=== PATIENT | female | born 1960 | race Caucasian/White ===

== ENCOUNTER 2022-06-04 16:47 | Inpatient (IN) | payer OTHER, MEDICARE ==
[2022-06-05 13:58] LABS: Alanine Aminotransferase 22 units/L (7-56); BUN/Creatinine Ratio 26; Blood Urea Nitrogen 21 mg/dL (7-17); Chol/HDL Ratio 1.98 %; HDL Cholesterol 73 mg/dL (40-59); Hemolysis Index 4; LDL Cholesterol,Direct 63 mg/dL (50-130)
[2022-06-05] MEDS ORDERED: HALOPERIDOL LACTATE 5 MG/1 ML INJ IM PRN (18:06)
[2022-06-05] MEDS ORDERED: LORazepam 2 MG/ML VIAL IM PRN (18:07)
--- NOTE | 2022-06-05 18:58 | Consultation ---
History of Present Illness - Reason for Consult Consult date: 06/05/22 Medical consult/medical management Requesting physician: GERONIMO IRELAND - History of Present Illness 61-year-old female patient with significant past medical history of CVA in February 2022 Type 2 diabetes mellitus, hypertension and dyslipidemia was admitted to [facility] for further evaluation and management of patient's worsening confusion memory loss aggression towards others and some behavioral issues, patient has history of diabetes and hypertension hospitalist services were consulted for medical management. When I evaluated the patient in the [facility] patient was very upset and reports that she does not know why she was here And wants to go home.. Patient denies any chest pain or shortness of breath, reports that she has history of diabetes and hypertension. Patient denies any nausea vomiting or abdominal pain Denies headache dizziness weakness or numbness No new complaints Past History Past Medical History: hypertension, hyperlipidemia, stroke (With residual CVA) Past Surgical History: No surgical history Social history: denies: smoking, alcohol abuse, prescription drug abuse Family history: no significant family history Medications and Allergies Allergies Allergy/AdvReac Type Severity Reaction Status Date / Time No Known Allergies Allergy Unverified 06/04/22 18:07 Home Medications Medication Instructions Recorded Confirmed Last Taken Type Atorvastatin [Lipitor Tab] 80 mg PO HS 06/04/22 06/04/22 Unknown History Cholecalciferol Vit D3 [Vitamin D3 2,000 1000units PO DAILY 06/04/22 06/04/22 Unknown History 1,000 UNIT TAB] Clopidogrel [Plavix] 75 mg PO QDAY 06/04/22 06/04/22 Unknown History Insulin Glargine [Lantus VIAL] 20 unit SUB-Q QHS 06/04/22 06/04/22 Unknown History Lispro Insulin [HumaLOG] 5 unit SQ HS 06/04/22 06/04/22 Unknown History QUEtiapine [SEROquel] 25 mg PO BID 06/04/22 06/04/22 Unknown History lisinopriL [Lisinopril] 20 mg PO DAILY 06/04/22 06/04/22 Unknown History Active Meds: Active Medications Haloperidol Lactate (Haloperidol Lactate 5 Mg/1 Ml Inj) 5 mg IM Q6H PRN PRN Reason: Agitation Lorazepam (Lorazepam 2 Mg/Ml Vial) 2 mg IM Q6H PRN PRN Reason: Agitation Trazodone HCl (Trazodone 50 Mg Tab) 50 mg PO QHS PORSHA Review of Systems Constitutional: no weight loss, no weight gain, no fever, no chills Ears, nose, mouth and throat: no nasal discharge, no sinus pressure Cardiovascular: no chest pain, no orthopnea, no palpitations Respiratory: no cough, no shortness of breath Gastrointestinal: no abdominal pain, no nausea, no vomiting Genitourinary Female: no flank pain, no dysuria Musculoskeletal: no myalgias, no arthritis Integumentary: no rash, no lesions Neurological: weakness, parathesias, no seizures Psychiatric: depression, no anxiety Endocrine: no cold intolerance, no heat intolerance, no polydipsia, no polyuria Hematologic/Lymphatic: no easy bruising, no easy bleeding Allergic/Immunologic: no urticaria, no allergic rhinitis Exam - Constitutional General appearance: Present: no acute distress, well-nourished, obese - EENT Eyes: Present: PERRL, EOM intact - Neck Neck: Present: supple, normal ROM - Respiratory Respiratory effort: normal Respiratory: bilateral: diminished, negative: rales, rhonchi, wheezing - Cardiovascular Rhythm: regular Heart Sounds: Present: S1 & S2 - Extremities Extremities: no ischemia, No edema - Abdominal General gastrointestinal: Present: soft, non-tender, non-distended, normal bowel sounds - Integumentary Integumentary: Present: clear, warm - Musculoskeletal Musculoskeletal: strength equal bilaterally, generalized weakness - Psychiatric Psychiatric: appropriate mood/affect, cooperative - Neurologic Neurologic: moves all extremities Results - Labs CBC & Chem 7: 06/05/22 13:17 Labs: Abnormal lab results 06/05/22 06/05/22 06/05/22 Range/Units 11:46 13:17 16:28 Sodium 134 L (137-145) mmol/L BUN 21 H (7-17) mg/dL Glucose 357 H (65-100) mg/dL POC Glucose 266 H 367 H (70-105) mg/dL Alkaline Phosphatase 131 H (35-129) units/L HDL Cholesterol 73 H (40-59) mg/dL Assessment and Plan -- Type 2 diabetes mellitus; uncontrolled Accu-Cheks sliding scale coverage ADA diet Long-acting insulin as needed -- Hypertension; moderate control Continue current antihypertensives, as needed medications -- Dyslipidemia; Low-cholesterol diet, continue statin -- History of stroke; Continue Plavix and statins Supportive care -- DVT prophylaxis; SCDs while resting Ambulate as tolerated -- Full CODE STATUS We will closely monitor the patient and adjust management as needed Plan of care reviewed with the patient and her nurse Thank you for this consult We will follow the patient along with you call us with questions
[2022-06-05 20:31] LABS: Basophils % (Auto) 0.6 % (0.0-1.8); Eosinophils # (Auto) 0.4 K/mm3 (0.0-0.4); Eosinophils % (Auto) 4.5 % (0.0-4.3); Lymphocytes # (Auto) 2.4 K/mm3 (1.2-5.4); Lymphocytes % (Auto) 30.5 % (13.4-35.0); Mean Corpuscular HGB Conc 37 % (30-34); Mean Corpuscular Volume 89 fl (79-97); Monocytes # (Auto) 0.7 K/mm3 (0.0-0.8); Monocytes % (Auto) 8.5 % (0.0-7.3); Platelet Count 201 K/mm3 (140-440); Red Blood Count 4.24 M/mm3 (3.65-5.03); Red Cell Distribution Width 13.9 % (13.2-15.2)
[2022-06-05 20:36] LABS: Hematocrit 37.7 % (30.3-42.9); Hemoglobin 13.8 gm/dl (10.1-14.3)
[2022-06-05] MEDS: QUEtiapine 25 MG TAB PO SCH (21:28)
[2022-06-05] MEDS: INSULIN LISPRO 100 UNIT/ML SUB-Q SCH (21:28)
[2022-06-05] MEDS: traZODone 50 MG TAB PO SCH (21:28)
[2022-06-06 05:48] LABS: Blood Urea Nitrogen 19 mg/dL (7-17); Calcium 9.2 mg/dL (8.4-10.2); Hemolysis Index 18
[2022-06-06 06:03] LABS: BUN/Creatinine Ratio 27
[2022-06-06] MEDS: CLOPIDOGREL 75 MG TAB PO SCH (09:43)
[2022-06-06] MEDS: LISINOPRIL 20 MG TAB PO SCH (09:44)
[2022-06-06] MEDS: CHOLECALCIFEROL (VIT D3) 1000 UNIT (25 mcg) TAB PO SCH (09:44)
[2022-06-06] MEDS: QUEtiapine 25 MG TAB PO SCH ×2 (09:44→21:37)
[2022-06-06] MEDS: INSULIN NPH/REGULAR 70/30 INJ SUB-Q SCH ×2 (10:19→16:49)
[2022-06-06] MEDS: INSULIN LISPRO 100 UNIT/ML SUB-Q SCH ×4 (10:19→21:51)
--- NOTE | 2022-06-06 14:53 | History and Physical Report ---
GP History & Physical - History of Present Illness Date of admission: 06/05/22 Date of Examination: 06/06/22 Reason for Admission: Danger to self, Severe anxiety/depression History of Present Illness: HPI 61 year old female was seen in her room today. Patient states that she was brought in by her and she doesn't know why "They brought me". Patient has a past psychiatric dx of depression and has been on Prozac for a while. Patient admits to having suicidal thoughts with no plan " Never worked" when asked what she meant she shrugged her shoulders. Patient states that she is "tired of being pushed around by everybody". Patient denies HI/AVH at this time. PAST PSYCHIATRIC HISTORY: Diagnoses: Depression Suicide attempts or Self-harm behavior: Yes Prior psychiatric hospitalizations: Yes Substance Abuse history: Denies Previous psychiatric medications tried: Yes, Prozac Outpatient treatment: PAST MEDICAL HISTORY: Family Psychiatric History None reported or documented SOCIAL HISTORY Marital Status: Living Arrangements: With spouse Employment Status: Retired Access to guns/weapons: Denies Education: History of Abuse: Denies Legal History: Denies REVIEW OF SYSTEMS Constitutional: Negative for weight loss ENT: Negative for stridor Respiratory: Negative for cough or hemoptysis All other systems reviewed and are negative Diagnoses: Unspecified mood disorder Treatment Plan Patient will be admitted for inpatient psychiatric evaluation, medication adjustment and close monitoring The patient's behavior, mood, sleep and appetite will be closely monitored. Patient will be enrolled in individual and group therapeutic sessions and encouraged to attend. Patient will be provided with a safe and structured environment. Patient's physical health needs will be addressed by the Hospitalist. Hospitalist Consulted Labs including CBC, CMP, Lipid profile and Hemoglobin A1C ordered Social Assessment will be completed and the [employer] Floor Installer will work with patient and family to ensure a suitable and safe disposition Medication adjustment will be made as clinically indicated Usual Wellness Quaker/Preservation: - Start Trazodone 50 mg po QHS PRN The patient agreed on the treatment plan, understood the risk, benefit, alternative treatment, potential consequence of no treatment, and gave informed consent. Legal Status: Involuntary Reaction to Hospitalization: Accepting Medications and Allergies Allergies Allergy/AdvReac Type Severity Reaction Status Date / Time No Known Allergies Allergy Unverified 06/04/22 18:07 Home Medications Medication Instructions Recorded Confirmed Last Taken Type Atorvastatin [Lipitor Tab] 80 mg PO HS 06/04/22 06/04/22 Unknown History Cholecalciferol Vit D3 [Vitamin D3 2,000 1000units PO DAILY 06/04/22 06/04/22 Unknown History 1,000 UNIT TAB] Clopidogrel [Plavix] 75 mg PO QDAY 06/04/22 06/04/22 Unknown History Insulin Glargine [Lantus VIAL] 20 unit SUB-Q QHS 06/04/22 06/04/22 Unknown History Lispro Insulin [HumaLOG] 5 unit SQ 06/04/22 06/04/22 Unknown History QUEtiapine [SEROquel] 25 mg PO BID 06/04/22 06/04/22 Unknown History lisinopriL [Lisinopril] 20 mg PO DAILY 06/04/22 06/04/22 Unknown History Active Meds: Active Medications Cholecalciferol (Cholecalciferol (Vit D3) 1000 Unit (25 Mcg) Tab) 1,000 unit PO DAILY [facility] Last Admin: 06/06/22 09:44 Dose: 1,000 unit Clopidogrel Bisulfate (Clopidogrel 75 Mg Tab) 75 mg PO QDAY [facility] Last Admin: 06/06/22 09:43 Dose: 75 mg Haloperidol Lactate (Haloperidol Lactate 5 Mg/1 Ml Inj) 5 mg IM Q6H PRN PRN Reason: Agitation Insulin Human Isoph/Insulin Regular (Insulin Nph/Regular 70/30 Inj) 10 unit SUB-Q BIDDIAB [facility] Last Admin: 06/06/22 10:19 Dose: 10 unit Insulin Human Lispro (Insulin Lispro 100 Unit/Ml) 0 unit SUB-Q [facility]; Protocol Last Admin: 06/06/22 10:33 Dose: Not Given Lisinopril (Lisinopril 20 Mg Tab) 20 mg PO DAILY [facility] Last Admin: 06/06/22 09:44 Dose: Not Given Lorazepam (Lorazepam 2 Mg/Ml Vial) 2 mg IM Q6H PRN PRN Reason: Agitation Quetiapine Fumarate (Quetiapine 25 Mg Tab) 25 mg PO BID [facility] Last Admin: 06/06/22 09:44 Dose: 25 mg Trazodone HCl (Trazodone 50 Mg Tab) 50 mg PO QHS [facility] Last Admin: 06/05/22 21:28 Dose: 50 mg Results - Results Labs/Vitals: Laboratory Last Values WBC 8.0 K/mm3 (4.5-11.0) 06/05/22 19:50 RBC 4.24 M/mm3 (3.65-5.03) 06/05/22 19:50 Hgb 13.8 gm/dl (10.1-14.3) 06/05/22 19:50 Hct 37.7 % (30.3-42.9) 06/05/22 19:50 MCV 89 fl (79-97) 06/05/22 19:50 MCH 32 pg (28-32) 06/05/22 19:50 MCHC 37 % (30-34) H 06/05/22 19:50 RDW 13.9 % (13.2-15.2) 06/05/22 19:50 Plt Count 201 K/mm3 (140-440) 06/05/22 19:50 Lymph % (Auto) 30.5 % (13.4-35.0) 06/05/22 19:50 [place] % (Auto) 8.5 % (0.0-7.3) H 06/05/22 19:50 Eos % (Auto) 4.5 % (0.0-4.3) H 06/05/22 19:50 Baso % (Auto) 0.6 % (0.0-1.8) 06/05/22 19:50 Lymph # (Auto) 2.4 K/mm3 (1.2-5.4) 06/05/22 19:50 [place] # (Auto) 0.7 K/mm3 (0.0-0.8) 06/05/22 19:50 Eos # (Auto) 0.4 K/mm3 (0.0-0.4) 06/05/22 19:50 Baso # (Auto) 0.0 K/mm3 (0.0-0.1) 06/05/22 19:50 Seg Neutrophils % 55.9 % (40.0-70.0) 06/05/22 19:50 Seg Neutrophils # 4.5 K/mm3 (1.8-7.7) 06/05/22 19:50 Sodium 140 mmol/L (137-145) 06/06/22 04:59 Potassium 4.1 mmol/L (3.6-5.0) 06/06/22 04:59 Chloride 104.8 mmol/L (98-107) 06/06/22 04:59 Carbon Dioxide 24 mmol/L (22-30) 06/06/22 04:59 Anion Gap 15 mmol/L 06/06/22 04:59 BUN 19 mg/dL (7-17) H 06/06/22 04:59 Creatinine 0.7 mg/dL (0.6-1.2) 06/06/22 04:59 Estimated GFR > 60 ml/min 06/06/22 04:59 BUN/Creatinine Ratio 27 % 06/06/22 04:59 Glucose 233 mg/dL (65-100) H 06/06/22 04:59 POC Glucose 231 mg/dL (70-105) H 06/06/22 10:30 Hemoglobin A1c 7.0 % (4-6) H 06/06/22 04:59 Calcium 9.2 mg/dL (8.4-10.2) 06/06/22 04:59 Magnesium 1.60 mg/dL (1.7-2.3) L 06/06/22 04:59 Total Bilirubin 0.30 mg/dL (0.1-1.2) 06/05/22 13:17 AST 22 units/L (5-40) 06/05/22 13:17 ALT 22 units/L (7-56) 06/05/22 13:17 Alkaline Phosphatase 131 units/L (35-129) H 06/05/22 13:17 Total Protein 6.9 g/dL (6.3-8.2) 06/05/22 13:17 Albumin 4.0 g/dL (3.9-5) 06/05/22 13:17 Albumin/Globulin Ratio 1.4 % 06/05/22 13:17 Triglycerides 110 mg/dL (2-149) 06/05/22 13:17 Cholesterol 145 mg/dL (50-199) 06/05/22 13:17 LDL Cholesterol Direct 63 mg/dL (50-130) 06/05/22 13:17 HDL Cholesterol 73 mg/dL (40-59) H 06/05/22 13:17 Cholesterol/HDL Ratio 1.98 % 06/05/22 13:17 TSH 1.290 mlU/mL (0.270-4.200) 06/05/22 13:17 Last Vital Signs Temp 97.7 F 06/05/22 22:00 Pulse 102 H 06/05/22 22:00 Resp 18 06/05/22 22:00 BP 156/95 06/05/22 22:00 Pulse Ox 98 06/05/22 22:00 Physical Examination - Constitutional Vitals: Vital Signs Temp Pulse Resp BP Pulse Ox 97.7 F 102 H 18 156/95 98 06/05/22 22:00 06/05/22 22:00 06/05/22 22:00 06/05/22 22:00 06/05/22 22:00 Temperature -Last 24 Hours Temperature 97.7 F Temperature 97.7 F Mental Status Exam - Vital signs Last Vital Signs Temp 97.7 F 06/05/22 22:00 Pulse 102 H 06/05/22 22:00 Resp 18 06/05/22 22:00 BP 156/95 06/05/22 22:00 Pulse Ox 98 06/05/22 22:00 Physician Certification - Certification Statement Physician Certification Statement: This is an acknowledgement statement that MONTEZ MARES is a 61 year old F who requires inpatient psychiatric admission for treatment which could reasonably be expected to improve the patient's condition for Estimated period of time patient will need to remain in the hospital: [ ] Plan for post-hospital care: [ ]
--- NOTE | 2022-06-06 19:56 | Progress Note ---
Assessment and Plan Assessment and plan: -- Type 2 diabetes mellitus; uncontrolled Accu-Cheks sliding scale coverage ADA diet Long-acting insulin as needed -- Hypertension; moderate control Continue current antihypertensives, as needed medications -- Dyslipidemia; Low-cholesterol diet, continue statin -- History of stroke; Continue Plavix and statins Supportive care -- DVT prophylaxis; SCDs while resting Ambulate as tolerated -- Full CODE STATUS Thank you for this consult We will follow the patient along with you call us with questions We will closely monitor the patient and adjust management as needed Plan of care reviewed with the patient and her nurse History Interval history: I have seen and examined the patient in the day room today Patient's chart and medications reviewed No new events reported by the nursing staff Patient is calm and quiet Minimal communication today Not in acute distress Hospitalist Physical - Constitutional Vitals: Temp Pulse Resp BP Pulse Ox 97.7 F 102 H 18 156/95 98 06/05/22 22:00 06/05/22 22:00 06/05/22 22:00 06/05/22 22:00 06/05/22 22:00 General appearance: Present: no acute distress, well-nourished, obese - EENT Eyes: Present: PERRL, EOM intact - Neck Neck: Present: supple, normal ROM - Respiratory Respiratory effort: normal Respiratory: bilateral: diminished, negative: rales, rhonchi, wheezing - Cardiovascular Rhythm: regular - Extremities Extremities: no ischemia, No edema - Abdominal General gastrointestinal: soft, non-tender, non-distended, normal bowel sounds - Integumentary Integumentary: Present: clear, warm - Psychiatric Psychiatric: appropriate mood/affect, cooperative - Neurologic Neurologic: CNII-XII intact, moves all extremities Results - Labs CBC & Chem 7: 06/05/22 19:50 06/06/22 04:59 Labs: Laboratory Last Values WBC 8.0 K/mm3 (4.5-11.0) 06/05/22 19:50 RBC 4.24 M/mm3 (3.65-5.03) 06/05/22 19:50 Hgb 13.8 gm/dl (10.1-14.3) 06/05/22 19:50 Hct 37.7 % (30.3-42.9) 06/05/22 19:50 MCV 89 fl (79-97) 06/05/22 19:50 MCH 32 pg (28-32) 06/05/22 19:50 MCHC 37 % (30-34) H 06/05/22 19:50 RDW 13.9 % (13.2-15.2) 06/05/22 19:50 Plt Count 201 K/mm3 (140-440) 06/05/22 19:50 Lymph % (Auto) 30.5 % (13.4-35.0) 06/05/22 19:50 [place] % (Auto) 8.5 % (0.0-7.3) H 06/05/22 19:50 Eos % (Auto) 4.5 % (0.0-4.3) H 06/05/22 19:50 Baso % (Auto) 0.6 % (0.0-1.8) 06/05/22 19:50 Lymph # (Auto) 2.4 K/mm3 (1.2-5.4) 06/05/22 19:50 [place] # (Auto) 0.7 K/mm3 (0.0-0.8) 06/05/22 19:50 Eos # (Auto) 0.4 K/mm3 (0.0-0.4) 06/05/22 19:50 Baso # (Auto) 0.0 K/mm3 (0.0-0.1) 06/05/22 19:50 Seg Neutrophils % 55.9 % (40.0-70.0) 06/05/22 19:50 Seg Neutrophils # 4.5 K/mm3 (1.8-7.7) 06/05/22 19:50 Sodium 140 mmol/L (137-145) 06/06/22 04:59 Potassium 4.1 mmol/L (3.6-5.0) 06/06/22 04:59 Chloride 104.8 mmol/L (98-107) 06/06/22 04:59 Carbon Dioxide 24 mmol/L (22-30) 06/06/22 04:59 Anion Gap 15 mmol/L 06/06/22 04:59 BUN 19 mg/dL (7-17) H 06/06/22 04:59 Creatinine 0.7 mg/dL (0.6-1.2) 06/06/22 04:59 Estimated GFR > 60 ml/min 06/06/22 04:59 BUN/Creatinine Ratio 27 % 06/06/22 04:59 Glucose 233 mg/dL (65-100) H 06/06/22 04:59 POC Glucose 214 mg/dL (70-105) H 06/06/22 19:42 Hemoglobin A1c 7.0 % (4-6) H 06/06/22 04:59 Calcium 9.2 mg/dL (8.4-10.2) 06/06/22 04:59 Magnesium 1.60 mg/dL (1.7-2.3) L 06/06/22 04:59 Total Bilirubin 0.30 mg/dL (0.1-1.2) 06/05/22 13:17 AST 22 units/L (5-40) 06/05/22 13:17 ALT 22 units/L (7-56) 06/05/22 13:17 Alkaline Phosphatase 131 units/L (35-129) H 06/05/22 13:17 Total Protein 6.9 g/dL (6.3-8.2) 06/05/22 13:17 Albumin 4.0 g/dL (3.9-5) 06/05/22 13:17 Albumin/Globulin Ratio 1.4 % 06/05/22 13:17 Triglycerides 110 mg/dL (2-149) 06/05/22 13:17 Cholesterol 145 mg/dL (50-199) 06/05/22 13:17 LDL Cholesterol Direct 63 mg/dL (50-130) 06/05/22 13:17 HDL Cholesterol 73 mg/dL (40-59) H 06/05/22 13:17 Cholesterol/HDL Ratio 1.98 % 06/05/22 13:17 TSH 1.290 mlU/mL (0.270-4.200) 06/05/22 13:17 Lara/IV: Voiding Method Toilet Active Medications - Current Medications Current Medications: Generic Name Dose Route Start Last Admin Trade Name Freq PRN Reason Stop Dose Admin Cholecalciferol 1,000 unit 06/06/22 10:00 06/06/22 09:44 Cholecalciferol (Vit D3) 1000 Unit (25 Mcg) Tab PO 1,000 unit DAILY PORSHA Administration Clopidogrel Bisulfate 75 mg 06/06/22 10:00 06/06/22 09:43 Clopidogrel 75 Mg Tab PO 75 mg QDAY PORSHA Administration Haloperidol Lactate 5 mg 06/05/22 18:06 Haloperidol Lactate 5 Mg/1 Ml Inj IM Q6H PRN Agitation Insulin Human Isoph/Insulin Regular 10 unit 06/06/22 08:00 06/06/22 16:49 Insulin Nph/Regular 70/30 Inj SUB-Q 10 unit BIDDIAB PORSHA Administration Insulin Human Lispro 0 unit 06/05/22 22:00 06/06/22 16:50 Insulin Lispro 100 Unit/Ml SUB-Q 3 unit ACHS PORSHA Administration Protocol Lisinopril 20 mg 06/06/22 10:00 06/06/22 09:44 Lisinopril 20 Mg Tab PO Not Given DAILY PORSHA Lorazepam 2 mg 06/05/22 18:07 Lorazepam 2 Mg/Ml Vial IM Q6H PRN Agitation Quetiapine Fumarate 25 mg 06/05/22 22:00 06/06/22 09:44 Quetiapine 25 Mg Tab PO 25 mg BID PORSHA Administration Trazodone HCl 50 mg 06/05/22 22:00 06/05/22 21:28 Trazodone 50 Mg Tab PO 50 mg QHS PORSHA Administration
[2022-06-06] MEDS ORDERED: INSULIN NPH/REGULAR 70/30 INJ SUB-Q SCH (20:05)
[2022-06-06] MEDS: traZODone 50 MG TAB PO SCH (21:37)
[2022-06-07] MEDS: INSULIN LISPRO 100 UNIT/ML SUB-Q SCH ×4 (07:30→22:58)
[2022-06-07] MEDS: CHOLECALCIFEROL (VIT D3) 1000 UNIT (25 mcg) TAB PO SCH (09:24)
[2022-06-07] MEDS: MAGNESIUM OXIDE 400 MG TAB PO SCH (09:24)
[2022-06-07] MEDS: CLOPIDOGREL 75 MG TAB PO SCH (09:24)
--- NOTE | 2022-06-07 09:26 | Progress Note ---
Subjective Date of service: 06/07/22 Principal diagnosis: Unspecified Mood Disorder Subjective Comment: The patient was seen today. She is forgetful, and appears delusional at times. She doesn't remember why she was admitted into the hospital. She says she is upset. She is asking about going home. The patient denies SI, but states "I'm homicidal against the person who put me here. I want to get a stick and whoop the sh*t out of them." She says "I woke up and I was here." She denies hallucina tions. The patient later asked me "do I know you? Are you waiting to see me" while I was going to see another patient. REVIEW OF SYSTEMS Constitutional: Negative for weight loss ENT: Negative for stridor Respiratory: Negative for cough or hemoptysis All other systems reviewed and are negative MENTAL STATUS EXAMINATION General Appearance and Behavior: Age appropriate, wearing appropriate clothes, cooperative, polite with questioning, good eye contact Cooperation: cooperative Psychomotor Behavior: Psychomotor normal Mood: upset Affect and affective range: congruent with stated affect Thought Process: Goal directed Thought Content: None Speech: Normal volume, Regular rate and rhythm Suicidal Ideation: Denies Homicidal Ideation: yes Hallucination: Denies Delusions: None elicited Impulse Control: Limited Insight and Judgment: Limited Memory: forgetful Attention: attentive Orientation: Alert and oriented Assessment Unspecified mood disorder Treatment Plan Patient will be admitted for inpatient psychiatric evaluation, medication adjustment and close monitoring The patient's behavior, mood, sleep and appetite will be closely monitored. Patient will be enrolled in individual and group therapeutic sessions and encouraged to attend. Patient will be provided with a safe and structured environment. Patient's physical health needs will be addressed by the Hospitalist. Hospitalist Consulted Labs including CBC, CMP, Lipid profile and Hemoglobin A1C ordered Social Assessment will be completed and the Crisis Nurse will work with patient and family to ensure a suitable and safe disposition Medication adjustment will be made as clinically indicated Depakote DR 125mg po BID Usual Wellness Catholic/Preservation: - Start Trazodone 50 mg po QHS PRN The patient agreed on the treatment plan, understood the risk, benefit, alternative treatment, potential consequence of no treatment, and gave informed consent. Medications and Allergies Allergies Allergy/AdvReac Type Severity Reaction Status Date / Time No Known Allergies Allergy Unverified 06/04/22 18:07 Home Medications Medication Instructions Recorded Confirmed Last Taken Type Atorvastatin [Lipitor Tab] 80 mg PO HS 06/04/22 06/04/22 Unknown History Cholecalciferol Vit D3 [Vitamin D3 2,000 1000units PO DAILY 06/04/22 06/04/22 Unknown History 1,000 UNIT TAB] Clopidogrel [Plavix] 75 mg PO QDAY 06/04/22 06/04/22 Unknown History Insulin Glargine [Lantus VIAL] 20 unit SUB-Q QHS 06/04/22 06/04/22 Unknown History Lispro Insulin [HumaLOG] 5 unit SQ 06/04/22 06/04/22 Unknown History QUEtiapine [SEROquel] 25 mg PO BID 06/04/22 06/04/22 Unknown History lisinopriL [Lisinopril] 20 mg PO DAILY 06/04/22 06/04/22 Unknown History Active Meds: Active Medications Cholecalciferol (Cholecalciferol (Vit D3) 1000 Unit (25 Mcg) Tab) 1,000 unit PO DAILY [facility] Last Admin: 06/06/22 09:44 Dose: 1,000 unit Clopidogrel Bisulfate (Clopidogrel 75 Mg Tab) 75 mg PO QDAY [facility] Last Admin: 06/06/22 09:43 Dose: 75 mg Haloperidol Lactate (Haloperidol Lactate 5 Mg/1 Ml Inj) 5 mg IM Q6H PRN PRN Reason: Agitation Insulin Human Isoph/Insulin Regular (Insulin Nph/Regular 70/30 Inj) 12 unit SUB-Q BIDDIAB [facility] Insulin Human Lispro (Insulin Lispro 100 Unit/Ml) 0 unit SUB-Q [facility]; Protocol Last Admin: 06/06/22 21:51 Dose: 3 unit Lisinopril (Lisinopril 20 Mg Tab) 20 mg PO DAILY [facility] Last Admin: 06/06/22 09:44 Dose: Not Given Lorazepam (Lorazepam 2 Mg/Ml Vial) 2 mg IM Q6H PRN PRN Reason: Agitation Magnesium Oxide (Magnesium Oxide 400 Mg Tab) 400 mg PO QDAY [facility] Quetiapine Fumarate (Quetiapine 25 Mg Tab) 25 mg PO BID [facility] Last Admin: 06/06/22 21:37 Dose: 25 mg Trazodone HCl (Trazodone 50 Mg Tab) 50 mg PO QHS [facility] Last Admin: 06/06/22 21:37 Dose: 50 mg Results - Results Labs/Vitals: Laboratory Last Values WBC 8.0 K/mm3 (4.5-11.0) 06/05/22 19:50 RBC 4.24 M/mm3 (3.65-5.03) 06/05/22 19:50 Hgb 13.8 gm/dl (10.1-14.3) 06/05/22 19:50 Hct 37.7 % (30.3-42.9) 06/05/22 19:50 MCV 89 fl (79-97) 06/05/22 19:50 MCH 32 pg (28-32) 06/05/22 19:50 MCHC 37 % (30-34) H 06/05/22 19:50 RDW 13.9 % (13.2-15.2) 06/05/22 19:50 Plt Count 201 K/mm3 (140-440) 06/05/22 19:50 Lymph % (Auto) 30.5 % (13.4-35.0) 06/05/22 19:50 [place] % (Auto) 8.5 % (0.0-7.3) H 06/05/22 19:50 Eos % (Auto) 4.5 % (0.0-4.3) H 06/05/22 19:50 Baso % (Auto) 0.6 % (0.0-1.8) 06/05/22 19:50 Lymph # (Auto) 2.4 K/mm3 (1.2-5.4) 06/05/22 19:50 [place] # (Auto) 0.7 K/mm3 (0.0-0.8) 06/05/22 19:50 Eos # (Auto) 0.4 K/mm3 (0.0-0.4) 06/05/22 19:50 Baso # (Auto) 0.0 K/mm3 (0.0-0.1) 06/05/22 19:50 Seg Neutrophils % 55.9 % (40.0-70.0) 06/05/22 19:50 Seg Neutrophils # 4.5 K/mm3 (1.8-7.7) 06/05/22 19:50 Sodium 140 mmol/L (137-145) 06/06/22 04:59 Potassium 4.1 mmol/L (3.6-5.0) 06/06/22 04:59 Chloride 104.8 mmol/L (98-107) 06/06/22 04:59 Carbon Dioxide 24 mmol/L (22-30) 06/06/22 04:59 Anion Gap 15 mmol/L 06/06/22 04:59 BUN 19 mg/dL (7-17) H 06/06/22 04:59 Creatinine 0.7 mg/dL (0.6-1.2) 06/06/22 04:59 Estimated GFR > 60 ml/min 06/06/22 04:59 BUN/Creatinine Ratio 27 % 06/06/22 04:59 Glucose 233 mg/dL (65-100) H 06/06/22 04:59 POC Glucose 235 mg/dL (70-105) H 06/07/22 06:49 Hemoglobin A1c 7.0 % (4-6) H 06/06/22 04:59 Calcium 9.2 mg/dL (8.4-10.2) 06/06/22 04:59 Magnesium 1.60 mg/dL (1.7-2.3) L 06/06/22 04:59 Total Bilirubin 0.30 mg/dL (0.1-1.2) 06/05/22 13:17 AST 22 units/L (5-40) 06/05/22 13:17 ALT 22 units/L (7-56) 06/05/22 13:17 Alkaline Phosphatase 131 units/L (35-129) H 06/05/22 13:17 Total Protein 6.9 g/dL (6.3-8.2) 06/05/22 13:17 Albumin 4.0 g/dL (3.9-5) 06/05/22 13:17 Albumin/Globulin Ratio 1.4 % 06/05/22 13:17 Triglycerides 110 mg/dL (2-149) 06/05/22 13:17 Cholesterol 145 mg/dL (50-199) 06/05/22 13:17 LDL Cholesterol Direct 63 mg/dL (50-130) 06/05/22 13:17 HDL Cholesterol 73 mg/dL (40-59) H 06/05/22 13:17 Cholesterol/HDL Ratio 1.98 % 06/05/22 13:17 TSH 1.290 mlU/mL (0.270-4.200) 06/05/22 13:17 Last Vital Signs Temp 97.2 F L 06/07/22 01:46 Pulse 88 06/07/22 01:46 Resp 16 06/07/22 01:46 BP 132/84 06/07/22 01:46 Pulse Ox 96 06/07/22 01:46
[2022-06-07] MEDS: QUEtiapine 25 MG TAB PO SCH ×2 (11:06→21:52)
[2022-06-07] MEDS: LISINOPRIL 20 MG TAB PO SCH (11:06)
[2022-06-07] MEDS: DIVALPROEX DR 125 MG TAB PO SCH ×2 (12:57→21:34)
--- NOTE | 2022-06-07 15:31 | Progress Note ---
Assessment and Plan Assessment and plan: -- Type 2 diabetes mellitus; uncontrolled Accu-Cheks sliding scale coverage ADA diet Long-acting insulin as needed -- Hypertension; moderate control Continue current antihypertensives, as needed medications -- Dyslipidemia; Low-cholesterol diet, continue statin -- History of stroke; Continue Plavix and statins Supportive care -- DVT prophylaxis; SCDs while resting Ambulate as tolerated -- Full CODE STATUS We will continue to closely monitor the patient and adjust management as needed, call us with questions Plan of care reviewed with the patient and her nurse History Interval history: I have seen the patient and examined in her room this morning Patient is very anxious to go home Does not like to be here no new events reported by the nursing staff Vital signs noted Hospitalist Physical - Constitutional Vitals: Temp Pulse Resp BP Pulse Ox 97.2 F L 90 16 115/83 96 06/07/22 01:46 06/07/22 11:06 06/07/22 01:46 06/07/22 11:06 06/07/22 01:46 General appearance: Present: no acute distress, well-nourished, obese - EENT Eyes: Present: PERRL, EOM intact - Neck Neck: Present: supple, normal ROM - Respiratory Respiratory effort: normal Respiratory: bilateral: diminished, negative: rales, rhonchi, wheezing - Cardiovascular Rhythm: regular Heart Sounds: Present: S1 & S2 - Extremities Extremities: no ischemia, No edema - Abdominal General gastrointestinal: soft, non-tender, non-distended, normal bowel sounds - Integumentary Integumentary: Present: clear, warm - Psychiatric Psychiatric: appropriate mood/affect, cooperative - Neurologic Neurologic: CNII-XII intact, moves all extremities Results - Labs CBC & Chem 7: 06/05/22 19:50 06/06/22 04:59 Labs: Laboratory Last Values WBC 8.0 K/mm3 (4.5-11.0) 06/05/22 19:50 RBC 4.24 M/mm3 (3.65-5.03) 06/05/22 19:50 Hgb 13.8 gm/dl (10.1-14.3) 06/05/22 19:50 Hct 37.7 % (30.3-42.9) 06/05/22 19:50 MCV 89 fl (79-97) 06/05/22 19:50 MCH 32 pg (28-32) 06/05/22 19:50 MCHC 37 % (30-34) H 06/05/22 19:50 RDW 13.9 % (13.2-15.2) 06/05/22 19:50 Plt Count 201 K/mm3 (140-440) 06/05/22 19:50 Lymph % (Auto) 30.5 % (13.4-35.0) 06/05/22 19:50 [place] % (Auto) 8.5 % (0.0-7.3) H 06/05/22 19:50 Eos % (Auto) 4.5 % (0.0-4.3) H 06/05/22 19:50 Baso % (Auto) 0.6 % (0.0-1.8) 06/05/22 19:50 Lymph # (Auto) 2.4 K/mm3 (1.2-5.4) 06/05/22 19:50 [place] # (Auto) 0.7 K/mm3 (0.0-0.8) 06/05/22 19:50 Eos # (Auto) 0.4 K/mm3 (0.0-0.4) 06/05/22 19:50 Baso # (Auto) 0.0 K/mm3 (0.0-0.1) 06/05/22 19:50 Seg Neutrophils % 55.9 % (40.0-70.0) 06/05/22 19:50 Seg Neutrophils # 4.5 K/mm3 (1.8-7.7) 06/05/22 19:50 Sodium 140 mmol/L (137-145) 06/06/22 04:59 Potassium 4.1 mmol/L (3.6-5.0) 06/06/22 04:59 Chloride 104.8 mmol/L (98-107) 06/06/22 04:59 Carbon Dioxide 24 mmol/L (22-30) 06/06/22 04:59 Anion Gap 15 mmol/L 06/06/22 04:59 BUN 19 mg/dL (7-17) H 06/06/22 04:59 Creatinine 0.7 mg/dL (0.6-1.2) 06/06/22 04:59 Estimated GFR > 60 ml/min 06/06/22 04:59 BUN/Creatinine Ratio 27 % 06/06/22 04:59 Glucose 233 mg/dL (65-100) H 06/06/22 04:59 POC Glucose 297 mg/dL (70-105) H 06/07/22 11:08 Hemoglobin A1c 7.0 % (4-6) H 06/06/22 04:59 Calcium 9.2 mg/dL (8.4-10.2) 06/06/22 04:59 Magnesium 1.60 mg/dL (1.7-2.3) L 06/06/22 04:59 Total Bilirubin 0.30 mg/dL (0.1-1.2) 06/05/22 13:17 AST 22 units/L (5-40) 06/05/22 13:17 ALT 22 units/L (7-56) 06/05/22 13:17 Alkaline Phosphatase 131 units/L (35-129) H 06/05/22 13:17 Total Protein 6.9 g/dL (6.3-8.2) 06/05/22 13:17 Albumin 4.0 g/dL (3.9-5) 06/05/22 13:17 Albumin/Globulin Ratio 1.4 % 06/05/22 13:17 Triglycerides 110 mg/dL (2-149) 06/05/22 13:17 Cholesterol 145 mg/dL (50-199) 06/05/22 13:17 LDL Cholesterol Direct 63 mg/dL (50-130) 06/05/22 13:17 HDL Cholesterol 73 mg/dL (40-59) H 06/05/22 13:17 Cholesterol/HDL Ratio 1.98 % 06/05/22 13:17 TSH 1.290 mlU/mL (0.270-4.200) 06/05/22 13:17 Lara/IV: Voiding Method Toilet Active Medications - Current Medications Current Medications: Generic Name Dose Route Start Last Admin Trade Name Freq PRN Reason Stop Dose Admin Cholecalciferol 1,000 unit 06/06/22 10:00 06/07/22 09:24 Cholecalciferol (Vit D3) 1000 Unit (25 Mcg) Tab PO 1,000 unit DAILY PORSHA Administration Clopidogrel Bisulfate 75 mg 06/06/22 10:00 06/07/22 09:24 Clopidogrel 75 Mg Tab PO 75 mg QDAY PORSHA Administration Divalproex Sodium 125 mg 06/07/22 11:00 06/07/22 12:[address] 125 Mg Tab PO 125 mg BID PROSHA Administration Haloperidol Lactate 5 mg 06/05/22 18:06 Haloperidol Lactate 5 Mg/1 Ml Inj IM Q6H PRN Agitation Insulin Human Isoph/Insulin Regular 12 unit 06/06/22 20:05 06/07/22 12:53 Insulin Nph/Regular 70/30 Inj SUB-Q 12 unit BIDDIAB PORSHA Administration Insulin Human Lispro 0 unit 06/05/22 22:00 06/07/22 11:30 Insulin Lispro 100 Unit/Ml SUB-Q Not Given [facility] Protocol Lisinopril 20 mg 06/06/22 10:00 06/07/22 11:06 Lisinopril 20 Mg Tab PO 20 mg DAILY PORSHA Administration Lorazepam 2 mg 06/05/22 18:07 Lorazepam 2 Mg/Ml Vial IM Q6H PRN Agitation Magnesium Oxide 400 mg 06/07/22 10:00 06/07/22 09:24 Magnesium Oxide 400 Mg Tab PO 400 mg QDAY PORSHA Administration Quetiapine Fumarate 25 mg 06/05/22 22:00 06/07/22 11:06 Quetiapine 25 Mg Tab PO 25 mg BID POR[facility] Administration Trazodone HCl 50 mg 06/05/22 22:00 06/06/22 21:37 Trazodone 50 Mg Tab PO 50 mg QHS PORSHA Administration
[2022-06-07] MEDS: traZODone 50 MG TAB PO SCH (21:34)
[2022-06-07] MEDS: INSULIN NPH/REGULAR 70/30 INJ SUB-Q SCH (22:29)
--- NOTE | 2022-06-08 08:13 | Progress Note ---
Subjective Date of service: 06/08/22 Principal diagnosis: Unspecified Mood Disorder Subjective Comment: The patient was seen today. She is in bed sleeping. She easily arouses. She says she's "tired, but good." The patient denies any SI/HI or hallucinations of any kind. 06/08 The patient was seen today. She is forgetful, and appears delusional at times. She doesn't remember why she was admitted into the hospital. She says she is upset. She is asking about going home. The patient denies SI, but states "I'm homicidal against the person who put me here. I want to get a stick and whoop the sh*t out of them." She says "I woke up and I was here." She denies hallucinations. The patient later asked me "do I know you? Are you waiting to see me" while I was going to see another patient. REVIEW OF SYSTEMS Constitutional: Negative for weight loss ENT: Negative for stridor Respiratory: Negative for cough or hemoptysis All other systems reviewed and are negative MENTAL STATUS EXAMINATION General Appearance and Behavior: Age appropriate, wearing appropriate clothes, cooperative, polite with questioning, good eye contact Cooperation: cooperative Psychomotor Behavior: Psychomotor normal Mood: Good Affect and affective range: congruent with stated affect Thought Process: Goal directed Thought Content: None Speech: Normal volume, Regular rate and rhythm Suicidal Ideation: Denies Homicidal Ideation: Denies Hallucination: Denies Delusions: None elicited Impulse Control: Limited Insight and Judgment: Limited Memory: forgetful Attention: attentive Orientation: Alert and oriented Assessment Unspecified mood disorder Treatment Plan Patient will be admitted for inpatient psychiatric evaluation, medication adjustment and close monitoring The patient's behavior, mood, sleep and appetite will be closely monitored. Patient will be enrolled in individual and group therapeutic sessions and encouraged to attend. Patient will be provided with a safe and structured environment. Patient's physical health needs will be addressed by the Hospitalist. Hospitalist Consulted Labs including CBC, CMP, Lipid profile and Hemoglobin A1C ordered Social Assessment will be completed and the [employer] Machine Operator will work with patient and family to ensure a suitable and safe disposition Medication adjustment will be made as clinically indicated started Depakote DR 125mg po BID yesterday No changes made today Usual Wellness Hindu/Preservation: - Start Trazodone 50 mg po QHS PRN The patient agreed on the treatment plan, understood the risk, benefit, alternative treatment, potential consequence of no treatment, and gave informed consent. Case staffed with Dr. Mendez Medications and Allergies Allergies Allergy/AdvReac Type Severity Reaction Status Date / Time No Known Allergies Allergy Unverified 06/04/22 18:07 Home Medications Medication Instructions Recorded Confirmed Last Taken Type Atorvastatin [Lipitor Tab] 80 mg PO HS 06/04/22 06/04/22 Unknown History Cholecalciferol Vit D3 [Vitamin D3 2,000 1000units PO DAILY 06/04/22 06/04/22 Unknown History 1,000 UNIT TAB] Clopidogrel [Plavix] 75 mg PO QDAY 06/04/22 06/04/22 Unknown History Insulin Glargine [Lantus VIAL] 20 unit SUB-Q QHS 06/04/22 06/04/22 Unknown History Lispro Insulin [HumaLOG] 5 unit SQ 06/04/22 06/04/22 Unknown History QUEtiapine [SEROquel] 25 mg PO BID 06/04/22 06/04/22 Unknown History lisinopriL [Lisinopril] 20 mg PO DAILY 06/04/22 06/04/22 Unknown History Active Meds: Active Medications Cholecalciferol (Cholecalciferol (Vit D3) 1000 Unit (25 Mcg) Tab) 1,000 unit PO DAILY [facility] Last Admin: 06/07/22 09:24 Dose: 1,000 unit Clopidogrel Bisulfate (Clopidogrel 75 Mg Tab) 75 mg PO QDAY [facility] Last Admin: 06/07/22 09:24 Dose: 75 mg Divalproex Sodium (Divalproex Dr 125 Mg Tab) 125 mg PO BID [facility] Last Admin: 06/07/22 21:34 Dose: 125 mg Haloperidol Lactate (Haloperidol Lactate 5 Mg/1 Ml Inj) 5 mg IM Q6H PRN PRN Reason: Agitation Insulin Human Isoph/Insulin Regular (Insulin Nph/Regular 70/30 Inj) 15 unit SUB-Q BIDDIAB [facility] Last Admin: 06/07/22 22:29 Dose: 15 unit Insulin Human Lispro (Insulin Lispro 100 Unit/Ml) 0 unit SUB-Q ACH[facility]; Protocol Last Admin: 06/07/22 22:58 Dose: 6 unit Lisinopril (Lisinopril 20 Mg Tab) 20 mg PO DAILY [facility] Last Admin: 06/07/22 11:06 Dose: 20 mg Lorazepam (Lorazepam 2 Mg/Ml Vial) 2 mg IM Q6H PRN PRN Reason: Agitation Magnesium Oxide (Magnesium Oxide 400 Mg Tab) 400 mg PO QDAY [facility] Last Admin: 06/07/22 09:24 Dose: 400 mg Quetiapine Fumarate (Quetiapine 25 Mg Tab) 25 mg PO BID [facility] Last Admin: 06/07/22 21:52 Dose: 25 mg Trazodone HCl (Trazodone 50 Mg Tab) 50 mg PO QHS [facility] Last Admin: 06/07/22 21:34 Dose: 50 mg Results - Results Labs/Vitals: Laboratory Last Values WBC 8.0 K/mm3 (4.5-11.0) 06/05/22 19:50 RBC 4.24 M/mm3 (3.65-5.03) 06/05/22 19:50 Hgb 13.8 gm/dl (10.1-14.3) 06/05/22 19:50 Hct 37.7 % (30.3-42.9) 06/05/22 19:50 MCV 89 fl (79-97) 06/05/22 19:50 MCH 32 pg (28-32) 06/05/22 19:50 MCHC 37 % (30-34) H 06/05/22 19:50 RDW 13.9 % (13.2-15.2) 06/05/22 19:50 Plt Count 201 K/mm3 (140-440) 06/05/22 19:50 Lymph % (Auto) 30.5 % (13.4-35.0) 06/05/22 19:50 [place] % (Auto) 8.5 % (0.0-7.3) H 06/05/22 19:50 Eos % (Auto) 4.5 % (0.0-4.3) H 06/05/22 19:50 Baso % (Auto) 0.6 % (0.0-1.8) 06/05/22 19:50 Lymph # (Auto) 2.4 K/mm3 (1.2-5.4) 06/05/22 19:50 [place] # (Auto) 0.7 K/mm3 (0.0-0.8) 06/05/22 19:50 Eos # (Auto) 0.4 K/mm3 (0.0-0.4) 06/05/22 19:50 Baso # (Auto) 0.0 K/mm3 (0.0-0.1) 06/05/22 19:50 Seg Neutrophils % 55.9 % (40.0-70.0) 06/05/22 19:50 Seg Neutrophils # 4.5 K/mm3 (1.8-7.7) 06/05/22 19:50 Sodium 140 mmol/L (137-145) 06/06/22 04:59 Potassium 4.1 mmol/L (3.6-5.0) 06/06/22 04:59 Chloride 104.8 mmol/L (98-107) 06/06/22 04:59 Carbon Dioxide 24 mmol/L (22-30) 06/06/22 04:59 Anion Gap 15 mmol/L 06/06/22 04:59 BUN 19 mg/dL (7-17) H 06/06/22 04:59 Creatinine 0.7 mg/dL (0.6-1.2) 06/06/22 04:59 Estimated GFR > 60 ml/min 06/06/22 04:59 BUN/Creatinine Ratio 27 % 06/06/22 04:59 Glucose 233 mg/dL (65-100) H 06/06/22 04:59 POC Glucose 312 mg/dL (70-105) H 06/07/22 22:41 Hemoglobin A1c 7.0 % (4-6) H 06/06/22 04:59 Calcium 9.2 mg/dL (8.4-10.2) 06/06/22 04:59 Magnesium 1.60 mg/dL (1.7-2.3) L 06/06/22 04:59 Total Bilirubin 0.30 mg/dL (0.1-1.2) 06/05/22 13:17 AST 22 units/L (5-40) 06/05/22 13:17 ALT 22 units/L (7-56) 06/05/22 13:17 Alkaline Phosphatase 131 units/L (35-129) H 06/05/22 13:17 Total Protein 6.9 g/dL (6.3-8.2) 06/05/22 13:17 Albumin 4.0 g/dL (3.9-5) 06/05/22 13:17 Albumin/Globulin Ratio 1.4 % 06/05/22 13:17 Triglycerides 110 mg/dL (2-149) 06/05/22 13:17 Cholesterol 145 mg/dL (50-199) 06/05/22 13:17 LDL Cholesterol Direct 63 mg/dL (50-130) 06/05/22 13:17 HDL Cholesterol 73 mg/dL (40-59) H 06/05/22 13:17 Cholesterol/HDL Ratio 1.98 % 06/05/22 13:17 TSH 1.290 mlU/mL (0.270-4.200) 06/05/22 13:17 Last Vital Signs Temp 97.9 F 06/07/22 20:00 Pulse 91 H 06/07/22 20:00 Resp 16 06/07/22 20:00 BP 118/73 06/07/22 20:00 Pulse Ox 96 06/07/22 20:00
[2022-06-08] MEDS: INSULIN LISPRO 100 UNIT/ML SUB-Q SCH ×4 (08:52→21:30)
[2022-06-08] MEDS: DIVALPROEX DR 125 MG TAB PO SCH ×2 (09:11→21:04)
[2022-06-08] MEDS: QUEtiapine 25 MG TAB PO SCH ×2 (09:11→21:04)
[2022-06-08] MEDS: CHOLECALCIFEROL (VIT D3) 1000 UNIT (25 mcg) TAB PO SCH (09:11)
[2022-06-08] MEDS: CLOPIDOGREL 75 MG TAB PO SCH (09:11)
[2022-06-08] MEDS: INSULIN NPH/REGULAR 70/30 INJ SUB-Q SCH ×2 (09:11→16:34)
[2022-06-08] MEDS: MAGNESIUM OXIDE 400 MG TAB PO SCH (09:11)
[2022-06-08] MEDS: LISINOPRIL 20 MG TAB PO SCH (09:12)
--- NOTE | 2022-06-08 14:25 | Progress Note ---
Assessment and Plan Assessment and plan: -- Type 2 diabetes mellitus; uncontrolled Accu-Cheks sliding scale coverage ADA diet Long-acting insulin as needed -- Hypertension; moderate control Continue current antihypertensives, as needed medications -- Dyslipidemia; Low-cholesterol diet, continue statin -- History of stroke; Continue Plavix and statins Supportive care -- DVT prophylaxis; SCDs while resting Ambulate as tolerated -- Full CODE STATUS We will continue to closely monitor the patient and adjust management as needed, call us with questions Plan of care reviewed with the patient and her nurse Continue current management Call us with questions History Interval history: I have seen the patient in her room, sleeping No new events reported by the nursing staff Patient is comfortable Vital signs reviewed Hospitalist Physical - Physical exam Narrative exam: Did not do physical examination as patient was sleeping[did not need to wake her up] - Constitutional Vitals: Temp Pulse Resp BP Pulse Ox 97.9 F 94 H 18 116/64 97 06/08/22 09:25 06/08/22 09:25 06/08/22 09:25 06/08/22 09:25 06/08/22 09:25 General appearance: Present: no acute distress, well-nourished, obese Results - Labs CBC & Chem 7: 06/05/22 19:50 06/06/22 04:59 Labs: Laboratory Last Values WBC 8.0 K/mm3 (4.5-11.0) 06/05/22 19:50 RBC 4.24 M/mm3 (3.65-5.03) 06/05/22 19:50 Hgb 13.8 gm/dl (10.1-14.3) 06/05/22 19:50 Hct 37.7 % (30.3-42.9) 06/05/22 19:50 MCV 89 fl (79-97) 06/05/22 19:50 MCH 32 pg (28-32) 06/05/22 19:50 MCHC 37 % (30-34) H 06/05/22 19:50 RDW 13.9 % (13.2-15.2) 06/05/22 19:50 Plt Count 201 K/mm3 (140-440) 06/05/22 19:50 Lymph % (Auto) 30.5 % (13.4-35.0) 06/05/22 19:50 [place] % (Auto) 8.5 % (0.0-7.3) H 06/05/22 19:50 Eos % (Auto) 4.5 % (0.0-4.3) H 06/05/22 19:50 Baso % (Auto) 0.6 % (0.0-1.8) 06/05/22 19:50 Lymph # (Auto) 2.4 K/mm3 (1.2-5.4) 06/05/22 19:50 [place] # (Auto) 0.7 K/mm3 (0.0-0.8) 06/05/22 19:50 Eos # (Auto) 0.4 K/mm3 (0.0-0.4) 06/05/22 19:50 Baso # (Auto) 0.0 K/mm3 (0.0-0.1) 06/05/22 19:50 Seg Neutrophils % 55.9 % (40.0-70.0) 06/05/22 19:50 Seg Neutrophils # 4.5 K/mm3 (1.8-7.7) 06/05/22 19:50 Sodium 140 mmol/L (137-145) 06/06/22 04:59 Potassium 4.1 mmol/L (3.6-5.0) 06/06/22 04:59 Chloride 104.8 mmol/L (98-107) 06/06/22 04:59 Carbon Dioxide 24 mmol/L (22-30) 06/06/22 04:59 Anion Gap 15 mmol/L 06/06/22 04:59 BUN 19 mg/dL (7-17) H 06/06/22 04:59 Creatinine 0.7 mg/dL (0.6-1.2) 06/06/22 04:59 Estimated GFR > 60 ml/min 06/06/22 04:59 BUN/Creatinine Ratio 27 % 06/06/22 04:59 Glucose 233 mg/dL (65-100) H 06/06/22 04:59 POC Glucose 207 mg/dL (70-105) H 06/08/22 11:52 Hemoglobin A1c 7.0 % (4-6) H 06/06/22 04:59 Calcium 9.2 mg/dL (8.4-10.2) 06/06/22 04:59 Magnesium 1.60 mg/dL (1.7-2.3) L 06/06/22 04:59 Total Bilirubin 0.30 mg/dL (0.1-1.2) 06/05/22 13:17 AST 22 units/L (5-40) 06/05/22 13:17 ALT 22 units/L (7-56) 06/05/22 13:17 Alkaline Phosphatase 131 units/L (35-129) H 06/05/22 13:17 Total Protein 6.9 g/dL (6.3-8.2) 06/05/22 13:17 Albumin 4.0 g/dL (3.9-5) 06/05/22 13:17 Albumin/Globulin Ratio 1.4 % 06/05/22 13:17 Triglycerides 110 mg/dL (2-149) 06/05/22 13:17 Cholesterol 145 mg/dL (50-199) 06/05/22 13:17 LDL Cholesterol Direct 63 mg/dL (50-130) 06/05/22 13:17 HDL Cholesterol 73 mg/dL (40-59) H 06/05/22 13:17 Cholesterol/HDL Ratio 1.98 % 06/05/22 13:17 TSH 1.290 mlU/mL (0.270-4.200) 06/05/22 13:17 Lara/IV: Voiding Method Toilet Active Medications - Current Medications Current Medications: Generic Name Dose Route Start Last Admin Trade Name Freq PRN Reason Stop Dose Admin Cholecalciferol 1,000 unit 06/06/22 10:00 06/08/22 09:11 Cholecalciferol (Vit D3) 1000 Unit (25 Mcg) Tab PO 1,000 unit DAILY PORSHA Administration Clopidogrel Bisulfate 75 mg 06/06/22 10:00 06/08/22 09:11 Clopidogrel 75 Mg Tab PO 75 mg QDAY PORSHA Administration Divalproex Sodium 125 mg 06/07/22 11:00 06/08/22 09:[address] 125 Mg Tab PO 125 mg BID PORSHA Administration Haloperidol Lactate 5 mg 06/05/22 18:06 Haloperidol Lactate 5 Mg/1 Ml Inj IM Q6H PRN Agitation Insulin Human Isoph/Insulin Regular 15 unit 06/07/22 17:30 06/08/22 09:11 Insulin Nph/Regular 70/30 Inj SUB-Q 15 unit BIDDIAB PORSHA Administration Insulin Human Lispro 0 unit 06/05/22 22:00 06/08/22 12:22 Insulin Lispro 100 Unit/Ml SUB-Q 3 unit ACHS PORSHA Administration Protocol Lisinopril 20 mg 06/06/22 10:00 06/08/22 09:12 Lisinopril 20 Mg Tab PO 20 mg DAILY PORSHA Administration Lorazepam 2 mg 06/05/22 18:07 Lorazepam 2 Mg/Ml Vial IM Q6H PRN Agitation Magnesium Oxide 400 mg 06/07/22 10:00 06/08/22 09:11 Magnesium Oxide 400 Mg Tab PO 400 mg QDAY PORSHA Administration Quetiapine Fumarate 25 mg 06/05/22 22:00 06/08/22 09:11 Quetiapine 25 Mg Tab PO 25 mg BID PORSHA Administration Trazodone HCl 50 mg 06/05/22 22:00 06/07/22 21:34 Trazodone 50 Mg Tab PO 50 mg QHS PORSHA Administration
[2022-06-08] MEDS: traZODone 50 MG TAB PO SCH (21:04)
--- NOTE | 2022-06-09 09:24 | Progress Note ---
Subjective Date of service: 06/09/22 Principal diagnosis: Unspecified Mood Disorder Subjective Comment: The patient was seen today. She is calm and cooperative. She denies SI/HI and hallucinations. The patient will discharge tomorrow if no events overnight, once outpatient resources are in place to ensure continuity of mental wellness. 06/09 The patient was seen today. She is in bed sleeping. She easily arouses. She says she's "tired, but good." The patient denies any SI/HI or hallucinations of any kind. 06/08 The patient was seen today. She is forgetful, and appears delusional at times. She doesn't remember why she was admitted into the hospital. She says she is upset. She is asking about going home. The patient denies SI, but states "I'm homicidal against the person who put me here. I want to get a stick and whoop the sh*t out of them." She says "I woke up and I was here." She denies hallucinations. The patient later asked me "do I know you? Are you waiting to see me" while I was going to see another patient. REVIEW OF SYSTEMS Constitutional: Negative for weight loss ENT: Negative for stridor Respiratory: Negative for cough or hemoptysis All other systems reviewed and are negative MENTAL STATUS EXAMINATION General Appearance and Behavior: Age appropriate, wearing appropriate clothes, cooperative, polite with questioning, good eye contact Cooperation: cooperative Psychomotor Behavior: Psychomotor normal Mood: Good Affect and affective range: congruent with stated affect Thought Process: Goal directed Thought Content: None Speech: Normal volume, Regular rate and rhythm Suicidal Ideation: Denies Homicidal Ideation: Denies Hallucination: Denies Delusions: None elicited Impulse Control: Limited Insight and Judgment: Limited Memory: forgetful Attention: attentive Orientation: Alert and oriented Assessment Unspecified mood disorder Treatment Plan Patient will be admitted for inpatient psychiatric evaluation, medication adjustment and close monitoring The patient's behavior, mood, sleep and appetite will be closely monitored. Patient will be enrolled in individual and group therapeutic sessions and encour aged to attend. Patient will be provided with a safe and structured environment. Patient's physical health needs will be addressed by the Hospitalist. Hospitalist Consulted Labs including CBC, CMP, Lipid profile and Hemoglobin A1C ordered Social Assessment will be completed and the Liv[facility] will work with patient and family to ensure a suitable and safe disposition Medication adjustment will be made as clinically indicated No changes made today Usual Wellness Buddhism/Preservation: - Start Trazodone 50 mg po QHS PRN The patient agreed on the treatment plan, understood the risk, benefit, alternative treatment, potential consequence of no treatment, and gave informed consent. Case staffed with Dr. Mendez Medications and Allergies Allergies Allergy/AdvReac Type Severity Reaction Status Date / Time No Known Allergies Allergy Unverified 06/04/22 18:07 Home Medications Medication Instructions Recorded Confirmed Last Taken Type Atorvastatin [Lipitor Tab] 80 mg PO HS 06/04/22 06/04/22 Unknown History Cholecalciferol Vit D3 [Vitamin D3 2,000 1000units PO DAILY 06/04/22 06/04/22 Unknown History 1,000 UNIT TAB] Clopidogrel [Plavix] 75 mg PO QDAY 06/04/22 06/04/22 Unknown History Insulin Glargine [Lantus VIAL] 20 unit SUB-Q QHS 06/04/22 06/04/22 Unknown H istory Lispro Insulin [HumaLOG] 5 unit SQ 06/04/22 06/04/22 Unknown History QUEtiapine [SEROquel] 25 mg PO BID 06/04/22 06/04/22 Unknown History lisinopriL [Lisinopril] 20 mg PO DAILY 06/04/22 06/04/22 Unknown History Active Meds: Active Medications Cholecalciferol (Cholecalciferol (Vit D3) 1000 Unit (25 Mcg) Tab) 1,000 unit PO DAILY [facility] Last Admin: 06/08/22 09:11 Dose: 1,000 unit Clopidogrel Bisulfate (Clopidogrel 75 Mg Tab) 75 mg PO QDAY [facility] Last Admin: 06/08/22 09:11 Dose: 75 mg Divalproex Sodium (Divalproex Dr 125 Mg Tab) 125 mg PO BID [facility] Last Admin: 06/08/22 21:04 Dose: 125 mg Haloperidol Lactate (Haloperidol Lactate 5 Mg/1 Ml Inj) 5 mg IM Q6H PRN PRN Reason: Agitation Insulin Human Isoph/Insulin Regular (Insulin Nph/Regular 70/30 Inj) 15 unit SUB-Q BIDDIAB [facility] Last Admin: 06/08/22 16:34 Dose: 15 unit Insulin Human Lispro (Insulin Lispro 100 Unit/Ml) 0 unit SUB-Q [facility]; Protocol Last Admin: 06/08/22 21:30 Dose: 2 unit Lisinopril (Lisinopril 20 Mg Tab) 20 mg PO DAILY [facility] Last Admin: 06/08/22 09:12 Dose: 20 mg Lorazepam (Lorazepam 2 Mg/Ml Vial) 2 mg IM Q6H PRN PRN Reason: Agitation Magnesium Oxide (Magnesium Oxide 400 Mg Tab) 400 mg PO QDAY [facility] Last Admin: 06/08/22 09:11 Dose: 400 mg Quetiapine Fumarate (Quetiapine 25 Mg Tab) 25 mg PO BID [facility] Last Admin: 06/08/22 21:04 Dose: 25 mg Trazodone HCl (Trazodone 50 Mg Tab) 50 mg PO QHS [facility] Last Admin: 06/08/22 21:04 Dose: 50 mg Results - Results Labs/Vitals: Laboratory Last Values WBC 8.0 K/mm3 (4.5-11.0) 06/05/22 19:50 RBC 4.24 M/mm3 (3.65-5.03) 06/05/22 19:50 Hgb 13.8 gm/dl (10.1-14.3) 06/05/22 19:50 Hct 37.7 % (30.3-42.9) 06/05/22 19:50 MCV 89 fl (79-97) 06/05/22 19:50 MCH 32 pg (28-32) 06/05/22 19:50 MCHC 37 % (30-34) H 06/05/22 19:50 RDW 13.9 % (13.2-15.2) 06/05/22 19:50 Plt Count 201 K/mm3 (140-440) 06/05/22 19:50 Lymph % (Auto) 30.5 % (13.4-35.0) 06/05/22 19:50 [place] % (Auto) 8.5 % (0.0-7.3) H 06/05/22 19:50 Eos % (Auto) 4.5 % (0.0-4.3) H 06/05/22 19:50 Baso % (Auto) 0.6 % (0.0-1.8) 06/05/22 19:50 Lymph # (Auto) 2.4 K/mm3 (1.2-5.4) 06/05/22 19:50 [place] # (Auto) 0.7 K/mm3 (0.0-0.8) 06/05/22 19:50 Eos # (Auto) 0.4 K/mm3 (0.0-0.4) 06/05/22 19:50 Baso # (Auto) 0.0 K/mm3 (0.0-0.1) 06/05/22 19:50 Seg Neutrophils % 55.9 % (40.0-70.0) 06/05/22 19:50 Seg Neutrophils # 4.5 K/mm3 (1.8-7.7) 06/05/22 19:50 Sodium 140 mmol/L (137-145) 06/06/22 04:59 Potassium 4.1 mmol/L (3.6-5.0) 06/06/22 04:59 Chloride 104.8 mmol/L (98-107) 06/06/22 04:59 Carbon Dioxide 24 mmol/L (22-30) 06/06/22 04:59 Anion Gap 15 mmol/L 06/06/22 04:59 BUN 19 mg/dL (7-17) H 06/06/22 04:59 Creatinine 0.7 mg/dL (0.6-1.2) 06/06/22 04:59 Estimated GFR > 60 ml/min 06/06/22 04:59 BUN/Creatinine Ratio 27 % 06/06/22 04:59 Glucose 233 mg/dL (65-100) H 06/06/22 04:59 POC Glucose 166 mg/dL (70-105) H 06/09/22 06:13 Hemoglobin A1c 7.0 % (4-6) H 06/06/22 04:59 Calcium 9.2 mg/dL (8.4-10.2) 06/06/22 04:59 Magnesium 1.60 mg/dL (1.7-2.3) L 06/06/22 04:59 Total Bilirubin 0.30 mg/dL (0.1-1.2) 06/05/22 13:17 AST 22 units/L (5-40) 06/05/22 13:17 ALT 22 units/L (7-56) 06/05/22 13:17 Alkaline Phosphatase 131 units/L (35-129) H 06/05/22 13:17 Total Protein 6.9 g/dL (6.3-8.2) 06/05/22 13:17 Albumin 4.0 g/dL (3.9-5) 06/05/22 13:17 Albumin/Globulin Ratio 1.4 % 06/05/22 13:17 Triglycerides 110 mg/dL (2-149) 06/05/22 13:17 Cholesterol 145 mg/dL (50-199) 06/05/22 13:17 LDL Cholesterol Direct 63 mg/dL (50-130) 06/05/22 13:17 HDL Cholesterol 73 mg/dL (40-59) H 06/05/22 13:17 Cholesterol/HDL Ratio 1.98 % 06/05/22 13:17 TSH 1.290 mlU/mL (0.270-4.200) 06/05/22 13:17 Last Vital Signs Temp 97.7 F 06/08/22 19:28 Pulse 86 06/08/22 19:28 Resp 17 06/08/22 19:28 BP 142/82 06/08/22 19:28 Pulse Ox 97 06/08/22 19:28
[2022-06-09] MEDS: MAGNESIUM OXIDE 400 MG TAB PO SCH (09:40)
[2022-06-09] MEDS: QUEtiapine 25 MG TAB PO SCH ×2 (09:40→22:13)
[2022-06-09] MEDS: CLOPIDOGREL 75 MG TAB PO SCH (09:40)
[2022-06-09] MEDS: DIVALPROEX DR 125 MG TAB PO SCH ×2 (09:41→22:13)
[2022-06-09] MEDS: LISINOPRIL 20 MG TAB PO SCH (09:41)
[2022-06-09] MEDS: CHOLECALCIFEROL (VIT D3) 1000 UNIT (25 mcg) TAB PO SCH (09:41)
[2022-06-09] MEDS: INSULIN LISPRO 100 UNIT/ML SUB-Q SCH ×4 (09:46→22:12)
[2022-06-09] MEDS: INSULIN NPH/REGULAR 70/30 INJ SUB-Q SCH ×2 (09:46→17:36)
--- NOTE | 2022-06-09 13:41 | Progress Note ---
Assessment and Plan Assessment and plan: -- Type 2 diabetes mellitus; uncontrolled Accu-Cheks sliding scale coverage ADA diet Long-acting insulin as needed -- Hypertension; moderate control Continue current antihypertensives, as needed medications -- Dyslipidemia; Low-cholesterol diet, continue statin -- History of stroke; Continue Plavix and statins Supportive care -- DVT prophylaxis; SCDs while resting Ambulate as tolerated -- Full CODE STATUS Patient feels a whole lot better Cheerful, more receptive and cooperative Continue current management Plan of care reviewed with the patient and nurse We will follow the patient along with you call us with questions History Interval history: I have seen and examined the patient in the day room today Patient's chart and medications reviewed Patient feels slightly better No new complaints Vital signs reviewed Hospitalist Physical - Constitutional Vitals: Temp Pulse Resp BP Pulse Ox 97.5 F L 90 18 126/72 99 06/09/22 08:45 06/09/22 09:41 06/09/22 08:45 06/09/22 09:41 06/09/22 08:45 General appearance: Present: no acute distress, well-nourished, obese - EENT Eyes: Present: PERRL, EOM intact - Neck Neck: Present: supple, normal ROM - Respiratory Respiratory effort: normal Respiratory: bilateral: diminished, negative: rales, rhonchi, wheezing - Cardiovascular Rhythm: regular Heart Sounds: Present: S1 & S2 - Extremities Extremities: no ischemia, No edema - Abdominal General gastrointestinal: soft, non-tender, non-distended, normal bowel sounds - Integumentary Integumentary: Present: clear, warm - Psychiatric Psychiatric: appropriate mood/affect, cooperative - Neurologic Neurologic: CNII-XII intact, moves all extremities Results - Labs CBC & Chem 7: 06/05/22 19:50 06/06/22 04:59 Labs: Laboratory Last Values WBC 8.0 K/mm3 (4.5-11.0) 06/05/22 19:50 RBC 4.24 M/mm3 (3.65-5.03) 06/05/22 19:50 Hgb 13.8 gm/dl (10.1-14.3) 06/05/22 19:50 Hct 37.7 % (30.3-42.9) 06/05/22 19:50 MCV 89 fl (79-97) 06/05/22 19:50 MCH 32 pg (28-32) 06/05/22 19:50 MCHC 37 % (30-34) H 06/05/22 19:50 RDW 13.9 % (13.2-15.2) 06/05/22 19:50 Plt Count 201 K/mm3 (140-440) 06/05/22 19:50 Lymph % (Auto) 30.5 % (13.4-35.0) 06/05/22 19:50 [place] % (Auto) 8.5 % (0.0-7.3) H 06/05/22 19:50 Eos % (Auto) 4.5 % (0.0-4.3) H 06/05/22 19:50 Baso % (Auto) 0.6 % (0.0-1.8) 06/05/22 19:50 Lymph # (Auto) 2.4 K/mm3 (1.2-5.4) 06/05/22 19:50 [place] # (Auto) 0.7 K/mm3 (0.0-0.8) 06/05/22 19:50 Eos # (Auto) 0.4 K/mm3 (0.0-0.4) 06/05/22 19:50 Baso # (Auto) 0.0 K/mm3 (0.0-0.1) 06/05/22 19:50 Seg Neutrophils % 55.9 % (40.0-70.0) 06/05/22 19:50 Seg Neutrophils # 4.5 K/mm3 (1.8-7.7) 06/05/22 19:50 Sodium 140 mmol/L (137-145) 06/06/22 04:59 Potassium 4.1 mmol/L (3.6-5.0) 06/06/22 04:59 Chloride 104.8 mmol/L (98-107) 06/06/22 04:59 Carbon Dioxide 24 mmol/L (22-30) 06/06/22 04:59 Anion Gap 15 mmol/L 06/06/22 04:59 BUN 19 mg/dL (7-17) H 06/06/22 04:59 Creatinine 0.7 mg/dL (0.6-1.2) 06/06/22 04:59 Estimated GFR > 60 ml/min 06/06/22 04:59 BUN/Creatinine Ratio 27 % 06/06/22 04:59 Glucose 233 mg/dL (65-100) H 06/06/22 04:59 POC Glucose 195 mg/dL (70-105) H 06/09/22 11:37 Hemoglobin A1c 7.0 % (4-6) H 06/06/22 04:59 Calcium 9.2 mg/dL (8.4-10.2) 06/06/22 04:59 Magnesium 1.60 mg/dL (1.7-2.3) L 06/06/22 04:59 Total Bilirubin 0.30 mg/dL (0.1-1.2) 06/05/22 13:17 AST 22 units/L (5-40) 06/05/22 13:17 ALT 22 units/L (7-56) 06/05/22 13:17 Alkaline Phosphatase 131 units/L (35-129) H 06/05/22 13:17 Total Protein 6.9 g/dL (6.3-8.2) 06/05/22 13:17 Albumin 4.0 g/dL (3.9-5) 06/05/22 13:17 Albumin/Globulin Ratio 1.4 % 06/05/22 13:17 Triglycerides 110 mg/dL (2-149) 06/05/22 13:17 Cholesterol 145 mg/dL (50-199) 06/05/22 13:17 LDL Cholesterol Direct 63 mg/dL (50-130) 06/05/22 13:17 HDL Cholesterol 73 mg/dL (40-59) H 06/05/22 13:17 Cholesterol/HDL Ratio 1.98 % 06/05/22 13:17 TSH 1.290 mlU/mL (0.270-4.200) 06/05/22 13:17 Lara/IV: Voiding Method Toilet Active Medications - Current Medications Current Medications: Generic Name Dose Route Start Last Admin Trade Name Freq PRN Reason Stop Dose Admin Cholecalciferol 1,000 unit 06/06/22 10:00 06/09/22 09:41 Cholecalciferol (Vit D3) 1000 Unit (25 Mcg) Tab PO 1,000 unit DAILY PORSHA Administration Clopidogrel Bisulfate 75 mg 06/06/22 10:00 06/09/22 09:40 Clopidogrel 75 Mg Tab PO 75 mg QDAY PORSHA Administration Divalproex Sodium 125 mg 06/07/22 11:00 06/09/22 09:[address] 125 Mg Tab PO 125 mg BID PORSHA Administration Haloperidol Lactate 5 mg 06/05/22 18:06 Haloperidol Lactate 5 Mg/1 Ml Inj IM Q6H PRN Agitation Insulin Human Isoph/Insulin Regular 15 unit 06/07/22 17:30 06/09/22 09:46 Insulin Nph/Regular 70/30 Inj SUB-Q 15 unit BIDDIAB PORSHA Administration Insulin Human Lispro 0 unit 06/05/22 22:00 06/09/22 12:13 Insulin Lispro 100 Unit/Ml SUB-Q 2 unit ACHS PORSHA Administration Protocol Lisinopril 20 mg 06/06/22 10:00 06/09/22 09:41 Lisinopril 20 Mg Tab PO 20 mg DAILY PORSHA Administration Lorazepam 2 mg 06/05/22 18:07 Lorazepam 2 Mg/Ml Vial IM Q6H PRN Agitation Magnesium Oxide 400 mg 06/07/22 10:00 06/09/22 09:40 Magnesium Oxide 400 Mg Tab PO 400 mg QDAY PORSHA Administration Quetiapine Fumarate 25 mg 06/05/22 22:00 06/09/22 09:40 Quetiapine 25 Mg Tab PO 25 mg BID PORSHA Administration Trazodone HCl 50 mg 06/05/22 22:00 06/08/22 21:04 Trazodone 50 Mg Tab PO 50 mg QHS PORSHA Administration
[2022-06-09] MEDS: traZODone 50 MG TAB PO SCH (22:13)
[2022-06-10] MEDS: INSULIN LISPRO 100 UNIT/ML SUB-Q SCH ×4 (07:30→21:30)
--- NOTE | 2022-06-10 08:22 | Progress Note ---
Assessment and Plan Assessment and plan: -- Type 2 diabetes mellitus; well controlled Accu-Cheks sliding scale coverage ADA diet Long-acting insulin as needed -- Hypertension; moderate control Continue current antihypertensives, as needed medications -- Dyslipidemia; Low-cholesterol diet, continue statin -- History of stroke; Continue Plavix and statins Supportive care -- DVT prophylaxis; SCDs while resting Ambulate as tolerated -- Full CODE STATUS Patient feels a whole lot better Cheerful, more receptive and cooperative Continue current management Plan of care reviewed with the patient and nurse We will follow the patient along with you call us with questions History Interval history: Have seen and examined patient today Patient's chart and medications reviewed no new events reported by the nursing staff Patient wants to go home Vital signs reviewed Hospitalist Physical - Constitutional Vitals: Temp Pulse Resp BP Pulse Ox 98.9 F 92 H 17 139/94 99 06/09/22 19:34 06/09/22 19:34 06/09/22 19:34 06/09/22 19:34 06/09/22 19:34 General appearance: Present: no acute distress, well-nourished, obese - EENT Eyes: Present: PERRL, EOM intact - Neck Neck: Present: supple, normal ROM - Respiratory Respiratory effort: normal Respiratory: bilateral: diminished, negative: rales, rhonchi, wheezing - Cardiovascular Rhythm: regular Heart Sounds: Present: S1 & S2 - Extremities Extremities: no ischemia, No edema - Abdominal General gastrointestinal: soft, non-tender, normal bowel sounds - Integumentary Integumentary: Present: clear, warm - Psychiatric Psychiatric: appropriate mood/affect, cooperative - Neurologic Neurologic: CNII-XII intact, moves all extremities Results - Labs CBC & Chem 7: 06/05/22 19:50 06/06/22 04:59 Labs: Laboratory Last Values WBC 8.0 K/mm3 (4.5-11.0) 06/05/22 19:50 RBC 4.24 M/mm3 (3.65-5.03) 06/05/22 19:50 Hgb 13.8 gm/dl (10.1-14.3) 06/05/22 19:50 Hct 37.7 % (30.3-42.9) 06/05/22 19:50 MCV 89 fl (79-97) 06/05/22 19:50 MCH 32 pg (28-32) 06/05/22 19:50 MCHC 37 % (30-34) H 06/05/22 19:50 RDW 13.9 % (13.2-15.2) 06/05/22 19:50 Plt Count 201 K/mm3 (140-440) 06/05/22 19:50 Lymph % (Auto) 30.5 % (13.4-35.0) 06/05/22 19:50 [place] % (Auto) 8.5 % (0.0-7.3) H 06/05/22 19:50 Eos % (Auto) 4.5 % (0.0-4.3) H 06/05/22 19:50 Baso % (Auto) 0.6 % (0.0-1.8) 06/05/22 19:50 Lymph # (Auto) 2.4 K/mm3 (1.2-5.4) 06/05/22 19:50 [place] # (Auto) 0.7 K/mm3 (0.0-0.8) 06/05/22 19:50 Eos # (Auto) 0.4 K/mm3 (0.0-0.4) 06/05/22 19:50 Baso # (Auto) 0.0 K/mm3 (0.0-0.1) 06/05/22 19:50 Seg Neutrophils % 55.9 % (40.0-70.0) 06/05/22 19:50 Seg Neutrophils # 4.5 K/mm3 (1.8-7.7) 06/05/22 19:50 Sodium 140 mmol/L (137-145) 06/06/22 04:59 Potassium 4.1 mmol/L (3.6-5.0) 06/06/22 04:59 Chloride 104.8 mmol/L (98-107) 06/06/22 04:59 Carbon Dioxide 24 mmol/L (22-30) 06/06/22 04:59 Anion Gap 15 mmol/L 06/06/22 04:59 BUN 19 mg/dL (7-17) H 06/06/22 04:59 Creatinine 0.7 mg/dL (0.6-1.2) 06/06/22 04:59 Estimated GFR > 60 ml/min 06/06/22 04:59 BUN/Creatinine Ratio 27 % 06/06/22 04:59 Glucose 233 mg/dL (65-100) H 06/06/22 04:59 POC Glucose 163 mg/dL (70-105) H 06/10/22 06:30 Hemoglobin A1c 7.0 % (4-6) H 06/06/22 04:59 Calcium 9.2 mg/dL (8.4-10.2) 06/06/22 04:59 Magnesium 1.60 mg/dL (1.7-2.3) L 06/06/22 04:59 Total Bilirubin 0.30 mg/dL (0.1-1.2) 06/05/22 13:17 AST 22 units/L (5-40) 06/05/22 13:17 ALT 22 units/L (7-56) 06/05/22 13:17 Alkaline Phosphatase 131 units/L (35-129) H 06/05/22 13:17 Total Protein 6.9 g/dL (6.3-8.2) 06/05/22 13:17 Albumin 4.0 g/dL (3.9-5) 06/05/22 13:17 Albumin/Globulin Ratio 1.4 % 06/05/22 13:17 Triglycerides 110 mg/dL (2-149) 06/05/22 13:17 Cholesterol 145 mg/dL (50-199) 06/05/22 13:17 LDL Cholesterol Direct 63 mg/dL (50-130) 06/05/22 13:17 HDL Cholesterol 73 mg/dL (40-59) H 06/05/22 13:17 Cholesterol/HDL Ratio 1.98 % 06/05/22 13:17 TSH 1.290 mlU/mL (0.270-4.200) 06/05/22 13:17 Lara/IV: Voiding Method Toilet Active Medications - Current Medications Current Medications: Generic Name Dose Route Start Last Admin Trade Name Freq PRN Reason Stop Dose Admin Cholecalciferol 1,000 unit 06/06/22 10:00 06/09/22 09:41 Cholecalciferol (Vit D3) 1000 Unit (25 Mcg) Tab PO 1,000 unit DAILY PORSHA Administration Clopidogrel Bisulfate 75 mg 06/06/22 10:00 06/09/22 09:40 Clopidogrel 75 Mg Tab PO 75 mg QDAY PORSHA Administration Divalproex Sodium 125 mg 07/29/22 11:00 06/09/22 22:[address] 125 Mg Tab PO 125 mg BID PORSHA Administration Haloperidol Lactate 5 mg 06/05/22 18:06 Haloperidol Lactate 5 Mg/1 Ml Inj IM Q6H PRN Agitation Insulin Human Isoph/Insulin Regular 15 unit 06/07/22 17:30 06/09/22 17:36 Insulin Nph/Regular 70/30 Inj SUB-Q 15 unit BIDDIAB PORSHA Administration Insulin Human Lispro 0 unit 06/05/22 22:00 06/09/22 22:12 Insulin Lispro 100 Unit/Ml SUB-Q 2 unit ACHS PORSHA Administration Protocol Lisinopril 20 mg 06/06/22 10:00 06/09/22 09:41 Lisinopril 20 Mg Tab PO 20 mg DAILY PORSHA Administration Lorazepam 2 mg 06/05/22 18:07 Lorazepam 2 Mg/Ml Vial IM Q6H PRN Agitation Magnesium Oxide 400 mg 06/07/22 10:00 06/09/22 09:40 Magnesium Oxide 400 Mg Tab PO 400 mg QDAY PORSHA Administration Quetiapine Fumarate 25 mg 06/05/22 22:00 06/09/22 22:13 Quetiapine 25 Mg Tab PO 25 mg BID PORSHA Administration Trazodone HCl 50 mg 06/05/22 22:00 06/09/22 22:13 Trazodone 50 Mg Tab PO 50 mg QHS PORSHA Administration
[2022-06-10] MEDS: CHOLECALCIFEROL (VIT D3) 1000 UNIT (25 mcg) TAB PO SCH (09:31)
[2022-06-10] MEDS: DIVALPROEX DR 125 MG TAB PO SCH ×2 (09:31→21:29)
[2022-06-10] MEDS: CLOPIDOGREL 75 MG TAB PO SCH (09:31)
[2022-06-10] MEDS: INSULIN NPH/REGULAR 70/30 INJ SUB-Q SCH ×2 (09:31→17:38)
[2022-06-10] MEDS: MAGNESIUM OXIDE 400 MG TAB PO SCH (09:31)
[2022-06-10] MEDS: LISINOPRIL 20 MG TAB PO SCH (09:35)
--- NOTE | 2022-06-10 11:04 | Progress Note ---
Subjective Date of service: 06/10/22 Principal diagnosis: Unspecified Mood Disorder Subjective Comment: The patient was seen today. She is lying in bed asleep. She easily arouses. She says she feels good but is tired. The patient denies SI/HI or hallucinations. 06/09 The patient was seen today. She is calm and cooperative. She denies SI/HI and hallucinations. The patient will discharge tomorrow if no events overnight, once outpatient resources are in place to ensure continuity of mental wellness. 06/08 The patient was seen today. She is in bed sleeping. She easily arouses. She says she's "tired, but good." The patient denies any SI/HI or hallucinations of any kind. 06/07 The patient was seen today. She is forgetful, and appears delusional at times. She doesn't remember why she was admitted into the hospital. She says she is upset. She is asking about going home. The patient denies SI, but states "I'm homicidal against the person who put me here. I want to get a stick and whoop the sh*t out of them." She says "I woke up and I was here." She denies hallucinations. The patient later asked me "do I know you? Are you waiting to see me" while I was going to see another patient. REVIEW OF SYSTEMS Constitutional: Negative for weight loss ENT: Negative for stridor Respiratory: Negative for cough or hemoptysis All other systems reviewed and are negative MENTAL STATUS EXAMINATION General Appearance and Behavior: Age appropriate, wearing appropriate clothes, cooperative, polite with questioning, good eye contact Cooperation: cooperative Psychomotor Behavior: Psychomotor normal Mood: Good Affect and affective range: congruent with stated affect Thought Process: Goal directed Thought Content: None Speech: Normal volume, Regular rate and rhythm Suicidal Ideation: Denies Homicidal Ideation: Denies Hallucination: Denies Delusions: None elicited Impulse Control: Limited Insight and Judgment: Limited Memory: forgetful Attention: attentive Orientation: Alert and oriented Assessment Unspecified mood disorder Treatment Plan Patient will be admitted for inpatient psychiatric evaluation, medication adjustment and close monitoring The patient's behavior, mood, sleep and appetite will be closely monitored. Patient will be enrolled in individual and group therapeutic sessions and encouraged to attend. Patient will be provided with a safe and structured environment. Patient's physical health needs will be addressed by the Hospitalist. Hospitalist Consulted Labs including CBC, CMP, Lipid profile and Hemoglobin A1C ordered Social Assessment will be completed and the Manager Performance Improvement will work with patient and family to ensure a suitable and safe disposition Medication adjustment will be made as clinically indicated No changes made today Usual Wellness Voodoo/Preservation: - Start Trazodone 50 mg po QHS PRN The patient agreed on the treatment plan, understood the risk, benefit, alternative treatment, potential consequence of no treatment, and gave informed consent. Case staffed with Dr. Mendez Medications and Allergies Allergies Allergy/AdvReac Type Severity Reaction Status Date / Time No Known Allergies Allergy Unverified 06/04/22 18:07 Home Medications Medication Instructions Recorded Confirmed Last Taken Type Atorvastatin [Lipitor Tab] 80 mg PO HS 06/04/22 06/04/22 Unknown History Cholecalciferol Vit D3 [Vitamin D3 2,000 1000units PO DAILY 06/04/22 06/04/22 Unknown History 1,000 UNIT TAB] Clopidogrel [Plavix] 75 mg PO QDAY 06/04/22 06/04/22 Unknown History Insulin Glargine [Lantus VIAL] 20 unit SUB-Q QHS 06/04/22 06/04/22 Unknown History Lispro Insulin [HumaLOG] 5 unit SQ HS 06/04/22 06/04/22 Unknown History QUEtiapine [SEROquel] 25 mg PO BID 06/04/22 06/04/22 Unknown History lisinopriL [Lisinopril] 20 mg PO DAILY 06/04/22 06/04/22 Unknown History Active Meds: Active Medications Cholecalciferol (Cholecalciferol (Vit D3) 1000 Unit (25 Mcg) Tab) 1,000 unit PO DAILY [facility] Last Admin: 06/10/22 09:31 Dose: 1,000 unit Clopidogrel Bisulfate (Clopidogrel 75 Mg Tab) 75 mg PO QDAY [facility] Last Admin: 06/10/22 09:31 Dose: 75 mg Divalproex Sodium (Divalproex Dr 125 Mg Tab) 125 mg PO BID [facility] Last Admin: 06/10/22 09:31 Dose: 125 mg Haloperidol Lactate (Haloperidol Lactate 5 Mg/1 Ml Inj) 5 mg IM Q6H PRN PRN Reason: Agitation Insulin Human Isoph/Insulin Regular (Insulin Nph/Regular 70/30 Inj) 15 unit SUB-Q BIDDIAB [facility] Last Admin: 06/10/22 09:31 Dose: 15 unit Insulin Human Lispro (Insulin Lispro 100 Unit/Ml) 0 unit SUB-Q ACHS [facility]; Protocol Last Admin: 06/10/22 07:30 Dose: Not Given Lisinopril (Lisinopril 20 Mg Tab) 20 mg PO DAILY [facility] Last Admin: 06/10/22 09:35 Dose: 20 mg Lorazepam (Lorazepam 2 Mg/Ml Vial) 2 mg IM Q6H PRN PRN Reason: Agitation Magnesium Oxide (Magnesium Oxide 400 Mg Tab) 400 mg PO QDAY [facility] Last Admin: 06/10/22 09:31 Dose: 400 mg Quetiapine Fumarate (Quetiapine 25 Mg Tab) 25 mg PO BID [facility] Last Admin: 06/09/22 22:13 Dose: 25 mg Trazodone HCl (Trazodone 50 Mg Tab) 50 mg PO QHS [facility] Last Admin: 06/09/22 22:13 Dose: 50 mg Results - Results Labs/Vitals: Laboratory Last Values WBC 8.0 K/mm3 (4.5-11.0) 06/05/22 19:50 RBC 4.24 M/mm3 (3.65-5.03) 06/05/22 19:50 Hgb 13.8 gm/dl (10.1-14.3) 06/05/22 19:50 Hct 37.7 % (30.3-42.9) 06/05/22 19:50 MCV 89 fl (79-97) 06/05/22 19:50 MCH 32 pg (28-32) 06/05/22 19:50 MCHC 37 % (30-34) H 06/05/22 19:50 RDW 13.9 % (13.2-15.2) 06/05/22 19:50 Plt Count 201 K/mm3 (140-440) 06/05/22 19:50 Lymph % (Auto) 30.5 % (13.4-35.0) 06/05/22 19:50 [place] % (Auto) 8.5 % (0.0-7.3) H 06/05/22 19:50 Eos % (Auto) 4.5 % (0.0-4.3) H 06/05/22 19:50 Baso % (Auto) 0.6 % (0.0-1.8) 06/05/22 19:50 Lymph # (Auto) 2.4 K/mm3 (1.2-5.4) 06/05/22 19:50 [place] # (Auto) 0.7 K/mm3 (0.0-0.8) 06/05/22 19:50 Eos # (Auto) 0.4 K/mm3 (0.0-0.4) 06/05/22 19:50 Baso # (Auto) 0.0 K/mm3 (0.0-0.1) 06/05/22 19:50 Seg Neutrophils % 55.9 % (40.0-70.0) 06/05/22 19:50 Seg Neutrophils # 4.5 K/mm3 (1.8-7.7) 06/05/22 19:50 Sodium 140 mmol/L (137-145) 06/06/22 04:59 Potassium 4.1 mmol/L (3.6-5.0) 06/06/22 04:59 Chloride 104.8 mmol/L (98-107) 06/06/22 04:59 Carbon Dioxide 24 mmol/L (22-30) 06/06/22 04:59 Anion Gap 15 mmol/L 06/06/22 04:59 BUN 19 mg/dL (7-17) H 06/06/22 04:59 Creatinine 0.7 mg/dL (0.6-1.2) 06/06/22 04:59 Estimated GFR > 60 ml/min 06/06/22 04:59 BUN/Creatinine Ratio 27 % 06/06/22 04:59 Glucose 233 mg/dL (65-100) H 06/06/22 04:59 POC Glucose 239 mg/dL (70-105) H 06/10/22 10:57 Hemoglobin A1c 7.0 % (4-6) H 06/06/22 04:59 Calcium 9.2 mg/dL (8.4-10.2) 06/06/22 04:59 Magnesium 1.60 mg/dL (1.7-2.3) L 06/06/22 04:59 Total Bilirubin 0.30 mg/dL (0.1-1.2) 06/05/22 13:17 AST 22 units/L (5-40) 06/05/22 13:17 ALT 22 units/L (7-56) 06/05/22 13:17 Alkaline Phosphatase 131 units/L (35-129) H 06/05/22 13:17 Total Protein 6.9 g/dL (6.3-8.2) 06/05/22 13:17 Albumin 4.0 g/dL (3.9-5) 06/05/22 13:17 Albumin/Globulin Ratio 1.4 % 06/05/22 13:17 Triglycerides 110 mg/dL (2-149) 06/05/22 13:17 Cholesterol 145 mg/dL (50-199) 06/05/22 13:17 LDL Cholesterol Direct 63 mg/dL (50-130) 06/05/22 13:17 HDL Cholesterol 73 mg/dL (40-59) H 06/05/22 13:17 Cholesterol/HDL Ratio 1.98 % 06/05/22 13:17 TSH 1.290 mlU/mL (0.270-4.200) 06/05/22 13:17 Last Vital Signs Temp 98.9 F 06/09/22 19:34 Pulse 94 H 06/10/22 09:35 Resp 17 06/09/22 19:34 BP 132/82 06/10/22 09:35 Pulse Ox 99 06/09/22 19:34
[2022-06-10] MEDS: QUEtiapine 25 MG TAB PO SCH ×2 (11:28→21:31)
[2022-06-10] MEDS: traZODone 50 MG TAB PO SCH (21:30)
--- NOTE | 2022-06-11 08:43 | Progress Note ---
Subjective Date of service: 06/11/22 Principal diagnosis: Unspecified Mood Disorder Subjective Comment: The patient was seen today. She says she's ready to go home. She denies SI/HI or hallucinations of any kind. Staff notes that patient has been restless, threatening and demanding. 06/10 The patient was seen today. She is lying in bed asleep. She easily arouses. She says she feels good but is tired. The patient denies SI/HI or hallucinations. 06/09 The patient was seen today. She is calm and cooperative. She denies SI/HI and hallucinations. The patient will discharge tomorrow if no events overnight, once outpatient resources are in place to ensure continuity of mental wellness. 06/08 The patient was seen today. She is in bed sleeping. She easily arouses. She says she's "tired, but good." The patient denies any SI/HI or hallucinations of any kind. 06/07 The patient was seen today. She is forgetful, and appears delusional at times. She doesn't remember why she was admitted into the hospital. She says she is upset. She is asking about going home. The patient denies SI, but states "I'm homicidal against the person who put me here. I want to get a stick and whoop the sh*t out of them." She says "I woke up and I was here." She denies hallucinations. The patient later asked me "do I know you? Are you waiting to see me" while I was going to see another patient. REVIEW OF SYSTEMS Constitutional: Negative for weight loss ENT: Negative for stridor Respiratory: Negative for cough or hemoptysis All other systems reviewed and are negative MENTAL STATUS EXAMINATION General Appearance and Behavior: Age appropriate, wearing appropriate clothes, cooperative, polite with questioning, good eye contact Cooperation: cooperative Psychomotor Behavior: Psychomotor normal Mood: Good Affect and affective range: congruent with stated affect Thought Process: Goal directed Thought Content: None Speech: Normal volume, Regular rate and rhythm Suicidal Ideation: Denies Homicidal Ideation: Denies Hallucination: Denies Delusions: None elicited Impulse Control: Limited Insight and Judgment: Limited Memory: forgetful Attention: attentive Orientation: Alert and oriented Assessment Unspecified mood disorder Treatment Plan Patient will be admitted for inpatient psychiatric evaluation, medication adjustment and close monitoring The patient's behavior, mood, sleep and appetite will be closely monitored. Patient will be enrolled in individual and group therapeutic sessions and enc ouraged to attend. Patient will be provided with a safe and structured environment. Patient's physical health needs will be addressed by the Hospitalist. Hospitalist Consulted Labs including CBC, CMP, Lipid profile and Hemoglobin A1C ordered Social Assessment will be completed and the Electric Installer will work with patient and family to ensure a suitable and safe disposition Medication adjustment will be made as clinically indicated Increase Depakote DR 125mg po TID Usual Wellness Rastafari/Preservation: - Start Trazodone 50 mg po QHS PRN The patient agreed on the treatment plan, understood the risk, benefit, alternative treatment, potential consequence of no treatment, and gave informed consent. Case staffed with Dr. Mendez Medications and Allergies Allergies Allergy/AdvReac Type Severity Reaction Status Date / Time No Known Allergies Allergy Unverified 06/04/22 18:07 Home Medications Medication Instructions Recorded Confirmed Last Taken Type Atorvastatin [Lipitor Tab] 80 mg PO HS 06/04/22 06/04/22 Unknown History Cholecalciferol Vit D3 [Vitamin D3 2,000 1000units PO DAILY 06/04/22 06/04/22 Unknown History 1,000 UNIT TAB] Clopidogrel [Plavix] 75 mg PO QDAY 06/04/22 06/04/22 Unknown History Insulin Glargine [Lantus VIAL] 20 unit SUB-Q QHS 06/04/22 06/04/22 Unknown History Lispro Insulin [HumaLOG] 5 unit SQ HS 06/04/22 06/04/22 Unknown History QUEtiapine [SEROquel] 25 mg PO BID 06/04/22 06/04/22 Unknown History lisinopriL [Lisinopril] 20 mg PO DAILY 06/04/22 06/04/22 Unknown History Active Meds: Active Medications Cholecalciferol (Cholecalciferol (Vit D3) 1000 Unit (25 Mcg) Tab) 1,000 unit PO DAILY [facility] Last Admin: 06/10/22 09:31 Dose: 1,000 unit Clopidogrel Bisulfate (Clopidogrel 75 Mg Tab) 75 mg PO QDAY [facility] Last Admin: 06/10/22 09:31 Dose: 75 mg Divalproex Sodium (Divalproex Dr 125 Mg Tab) 125 mg PO BID [facility] Last Admin: 06/10/22 21:29 Dose: 125 mg Haloperidol Lactate (Haloperidol Lactate 5 Mg/1 Ml Inj) 5 mg IM Q6H PRN PRN Reason: Agitation Insulin Human Isoph/Insulin Regular (Insulin Nph/Regular 70/30 Inj) 15 unit SUB-Q BIDDIAB [facility] Last Admin: 06/10/22 17:38 Dose: 15 unit Insulin Human Lispro (Insulin Lispro 100 Unit/Ml) 0 unit SUB-Q ACHS [facility]; Protocol Last Admin: 06/10/22 21:30 Dose: 2 unit Lisinopril (Lisinopril 20 Mg Tab) 20 mg PO DAILY [facility] Last Admin: 06/10/22 09:35 Dose: 20 mg Lorazepam (Lorazepam 2 Mg/Ml Vial) 2 mg IM Q6H PRN PRN Reason: Agitation Magnesium Oxide (Magnesium Oxide 400 Mg Tab) 400 mg PO QDAY [facility] Last Admin: 06/10/22 09:31 Dose: 400 mg Quetiapine Fumarate (Quetiapine 25 Mg Tab) 25 mg PO BID [facility] Last Admin: 06/10/22 21:31 Dose: 25 mg Trazodone HCl (Trazodone 50 Mg Tab) 50 mg PO QHS [facility] Last Admin: 06/10/22 21:30 Dose: 50 mg Results - Results Labs/Vitals: Laboratory Last Values WBC 8.0 K/mm3 (4.5-11.0) 06/05/22 19:50 RBC 4.24 M/mm3 (3.65-5.03) 06/05/22 19:50 Hgb 13.8 gm/dl (10.1-14.3) 06/05/22 19:50 Hct 37.7 % (30.3-42.9) 06/05/22 19:50 MCV 89 fl (79-97) 06/05/22 19:50 MCH 32 pg (28-32) 06/05/22 19:50 MCHC 37 % (30-34) H 06/05/22 19:50 RDW 13.9 % (13.2-15.2) 06/05/22 19:50 Plt Count 201 K/mm3 (140-440) 06/05/22 19:50 Lymph % (Auto) 30.5 % (13.4-35.0) 06/05/22 19:50 [place] % (Auto) 8.5 % (0.0-7.3) H 06/05/22 19:50 Eos % (Auto) 4.5 % (0.0-4.3) H 06/05/22 19:50 Baso % (Auto) 0.6 % (0.0-1.8) 06/05/22 19:50 Lymph # (Auto) 2.4 K/mm3 (1.2-5.4) 06/05/22 19:50 [place] # (Auto) 0.7 K/mm3 (0.0-0.8) 06/05/22 19:50 Eos # (Auto) 0.4 K/mm3 (0.0-0.4) 06/05/22 19:50 Baso # (Auto) 0.0 K/mm3 (0.0-0.1) 06/05/22 19:50 Seg Neutrophils % 55.9 % (40.0-70.0) 06/05/22 19:50 Seg Neutrophils # 4.5 K/mm3 (1.8-7.7) 06/05/22 19:50 Sodium 140 mmol/L (137-145) 06/06/22 04:59 Potassium 4.1 mmol/L (3.6-5.0) 06/06/22 04:59 Chloride 104.8 mmol/L (98-107) 06/06/22 04:59 Carbon Dioxide 24 mmol/L (22-30) 06/06/22 04:59 Anion Gap 15 mmol/L 06/06/22 04:59 BUN 19 mg/dL (7-17) H 06/06/22 04:59 Creatinine 0.7 mg/dL (0.6-1.2) 06/06/22 04:59 Estimated GFR > 60 ml/min 06/06/22 04:59 BUN/Creatinine Ratio 27 % 06/06/22 04:59 Glucose 233 mg/dL (65-100) H 06/06/22 04:59 POC Glucose 166 mg/dL (70-105) H 06/11/22 07:04 Hemoglobin A1c 7.0 % (4-6) H 06/06/22 04:59 Calcium 9.2 mg/dL (8.4-10.2) 06/06/22 04:59 Magnesium 1.60 mg/dL (1.7-2.3) L 06/06/22 04:59 Total Bilirubin 0.30 mg/dL (0.1-1.2) 06/05/22 13:17 AST 22 units/L (5-40) 06/05/22 13:17 ALT 22 units/L (7-56) 06/05/22 13:17 Alkaline Phosphatase 131 units/L (35-129) H 06/05/22 13:17 Total Protein 6.9 g/dL (6.3-8.2) 06/05/22 13:17 Albumin 4.0 g/dL (3.9-5) 06/05/22 13:17 Albumin/Globulin Ratio 1.4 % 06/05/22 13:17 Triglycerides 110 mg/dL (2-149) 06/05/22 13:17 Cholesterol 145 mg/dL (50-199) 06/05/22 13:17 LDL Cholesterol Direct 63 mg/dL (50-130) 06/05/22 13:17 HDL Cholesterol 73 mg/dL (40-59) H 06/05/22 13:17 Cholesterol/HDL Ratio 1.98 % 06/05/22 13:17 TSH 1.290 mlU/mL (0.270-4.200) 06/05/22 13:17 Last Vital Signs Temp 98.9 F 06/09/22 19:34 Pulse 94 H 06/10/22 09:35 Resp 17 06/09/22 19:34 BP 132/82 06/10/22 09:35 Pulse Ox 99 06/09/22 19:34
[2022-06-11] MEDS: CHOLECALCIFEROL (VIT D3) 1000 UNIT (25 mcg) TAB PO SCH (09:51)
[2022-06-11] MEDS: CLOPIDOGREL 75 MG TAB PO SCH (09:51)
[2022-06-11] MEDS: DIVALPROEX DR 125 MG TAB PO SCH ×3 (09:53→21:31)
[2022-06-11] MEDS: INSULIN NPH/REGULAR 70/30 INJ SUB-Q SCH ×2 (09:54→17:34)
[2022-06-11] MEDS: QUEtiapine 25 MG TAB PO SCH ×2 (09:54→21:31)
[2022-06-11] MEDS: MAGNESIUM OXIDE 400 MG TAB PO SCH (09:54)
[2022-06-11] MEDS: INSULIN LISPRO 100 UNIT/ML SUB-Q SCH ×4 (10:01→22:39)
[2022-06-11] MEDS: LISINOPRIL 20 MG TAB PO SCH (10:06)
--- NOTE | 2022-06-11 11:20 | Progress Note ---
Assessment and Plan - Patient Problems (1) Generalized anxiety disorder Current Visit: Yes Status: Acute Plan to address problem: Benzodiazepine therapy as clinically indicated, cognitive behavioral therapy, (2) Major depression Current Visit: Yes Status: Acute Plan to address problem: Continue medical management, supportive care. (3) Vascular dementia with behavioral disturbance Current Visit: Yes Status: Acute Plan to address problem: Verbal prompting, verbal redirection, benzodiazepine therapy as clinically indicated (4) Cerebral atherosclerosis Current Visit: Yes Status: Acute Plan to address problem: Risk factor reduction, antiplatelet therapy as clinically indicated. (5) Diabetes Current Visit: Yes Status: Acute Plan to address problem: Consistent carbohydrate diet, Accu-Chek, insulin protocol. Hypoglycemia protocol (6) Hypertension Current Visit: Yes Status: Acute Qualifiers: Hypertension type: primary hypertension Qualified Code(s): I10 - Essential (primary) hypertension Plan to address problem: Monitor blood pressure every shift (7) Hyperlipidemia Current Visit: Yes Status: Acute Plan to address problem: Statin therapy, low-cholesterol diet. (8) Obesity Current Visit: Yes Status: Acute Plan to address problem: Balanced diet, increase physical activity discharge. (9) Advance care planning Current Visit: Yes Status: Acute Plan to address problem: Disease education data, care plan discussed, diagnosis discussed, prognosis discussed, +30 minutes. (10) Preventative health care Current Visit: Yes Status: Acute Plan to address problem: Patient counseled regarding balanced diet, risk factor reduction, outpatient follow-up with primary care physician for all age and risk factor appropriate screening test. +30 minutes. History Interval history: 61 YO Female with Vascular Dementia with behavioral disturbance, Cerebral Atherosclerosis, HTN, HLD, CVA admitted to [facility] for psychiatric stabilization. Patient seen and evaluated in the recreation room. Patient appears to be at baseline level of cognition and function. No reported nursing events. Hospitalist Physical - Constitutional Vitals: Temp Pulse Resp BP Pulse Ox 97.4 F L 91 H 18 143/94 99 06/11/22 08:00 06/11/22 08:00 06/11/22 08:00 06/11/22 08:00 06/09/22 19:34 General appearance: Present: no acute distress, well-nourished, obese - EENT Eyes: Present: PERRL ENT: hearing decreased - Neck Neck: Present: supple - Respiratory Respiratory effort: normal Respiratory: bilateral: diminished - Cardiovascular Rhythm: regular Heart Sounds: Present: S1 & S2 - Extremities Extremities: no ischemia Peripheral Pulses: within normal limits - Abdominal General gastrointestinal: soft, non-tender, non-distended - Integumentary Integumentary: Present: clear, dry - Psychiatric Psychiatric: cooperative Results - Labs CBC & Chem 7: 06/05/22 19:50 06/06/22 04:59 Labs: Laboratory Last Values WBC 8.0 K/mm3 (4.5-11.0) 06/05/22 19:50 RBC 4.24 M/mm3 (3.65-5.03) 06/05/22 19:50 Hgb 13.8 gm/dl (10.1-14.3) 06/05/22 19:50 Hct 37.7 % (30.3-42.9) 06/05/22 19:50 MCV 89 fl (79-97) 06/05/22 19:50 MCH 32 pg (28-32) 06/05/22 19:50 MCHC 37 % (30-34) H 06/05/22 19:50 RDW 13.9 % (13.2-15.2) 06/05/22 19:50 Plt Count 201 K/mm3 (140-440) 06/05/22 19:50 Lymph % (Auto) 30.5 % (13.4-35.0) 06/05/22 19:50 [place] % (Auto) 8.5 % (0.0-7.3) H 06/05/22 19:50 Eos % (Auto) 4.5 % (0.0-4.3) H 06/05/22 19:50 Baso % (Auto) 0.6 % (0.0-1.8) 06/05/22 19:50 Lymph # (Auto) 2.4 K/mm3 (1.2-5.4) 06/05/22 19:50 [place] # (Auto) 0.7 K/mm3 (0.0-0.8) 06/05/22 19:50 Eos # (Auto) 0.4 K/mm3 (0.0-0.4) 06/05/22 19:50 Baso # (Auto) 0.0 K/mm3 (0.0-0.1) 06/05/22 19:50 Seg Neutrophils % 55.9 % (40.0-70.0) 06/05/22 19:50 Seg Neutrophils # 4.5 K/mm3 (1.8-7.7) 06/05/22 19:50 Sodium 140 mmol/L (137-145) 06/06/22 04:59 Potassium 4.1 mmol/L (3.6-5.0) 06/06/22 04:59 Chloride 104.8 mmol/L (98-107) 06/06/22 04:59 Carbon Dioxide 24 mmol/L (22-30) 06/06/22 04:59 Anion Gap 15 mmol/L 06/06/22 04:59 BUN 19 mg/dL (7-17) H 06/06/22 04:59 Creatinine 0.7 mg/dL (0.6-1.2) 06/06/22 04:59 Estimated GFR > 60 ml/min 06/06/22 04:59 BUN/Creatinine Ratio 27 % 06/06/22 04:59 Glucose 233 mg/dL (65-100) H 06/06/22 04:59 POC Glucose 166 mg/dL (70-105) H 06/11/22 07:04 Hemoglobin A1c 7.0 % (4-6) H 06/06/22 04:59 Calcium 9.2 mg/dL (8.4-10.2) 06/06/22 04:59 Magnesium 1.60 mg/dL (1.7-2.3) L 06/06/22 04:59 Total Bilirubin 0.30 mg/dL (0.1-1.2) 06/05/22 13:17 AST 22 units/L (5-40) 06/05/22 13:17 ALT 22 units/L (7-56) 06/05/22 13:17 Alkaline Phosphatase 131 units/L (35-129) H 06/05/22 13:17 Total Protein 6.9 g/dL (6.3-8.2) 06/05/22 13:17 Albumin 4.0 g/dL (3.9-5) 06/05/22 13:17 Albumin/Globulin Ratio 1.4 % 06/05/22 13:17 Triglycerides 110 mg/dL (2-149) 06/05/22 13:17 Cholesterol 145 mg/dL (50-199) 06/05/22 13:17 LDL Cholesterol Direct 63 mg/dL (50-130) 06/05/22 13:17 HDL Cholesterol 73 mg/dL (40-59) H 06/05/22 13:17 Cholesterol/HDL Ratio 1.98 % 06/05/22 13:17 TSH 1.290 mlU/mL (0.270-4.200) 06/05/22 13:17 Lara/IV: Voiding Method Toilet Active Medications - Current Medications Current Medications: Generic Name Dose Route Start Last Admin Trade Name Freq PRN Reason Stop Dose Admin Cholecalciferol 1,000 unit 06/06/22 10:00 06/11/22 09:51 Cholecalciferol (Vit D3) 1000 Unit (25 Mcg) Tab PO 1,000 unit DAILY [facility] Administration Clopidogrel Bisulfate 75 mg 06/06/22 10:00 06/11/22 09:51 Clopidogrel 75 Mg Tab PO 75 mg QDAY [facility] Administration Divalproex Sodium 125 mg 06/11/22 10:00 06/11/22 09:[address] 125 Mg Tab PO 125 mg TID [facility] Administration Haloperidol Lactate 5 mg 06/05/22 18:06 Haloperidol Lactate 5 Mg/1 Ml Inj IM Q6H PRN Agitation Insulin Human Isoph/Insulin Regular 15 unit 06/07/22 17:30 06/11/22 09:54 Insulin Nph/Regular 70/30 Inj SUB-Q 15 unit BIDDIAB [facility] Administration Insulin Human Lispro 0 unit 06/05/22 22:00 06/11/22 10:01 Insulin Lispro 100 Unit/Ml SUB-Q Not Given ACHS [facility] Protocol Lisinopril 20 mg 06/06/22 10:00 06/11/22 10:06 Lisinopril 20 Mg Tab PO 20 mg DAILY [facility] Administration Lorazepam 2 mg 06/05/22 18:07 Lorazepam 2 Mg/Ml Vial IM Q6H PRN Agitation Magnesium Oxide 400 mg 06/07/22 10:00 06/11/22 09:54 Magnesium Oxide 400 Mg Tab PO 400 mg QDAY [facility] Administration Quetiapine Fumarate 25 mg 06/05/22 22:00 06/11/22 09:54 Quetiapine 25 Mg Tab PO 25 mg BID [facility] Administration Trazodone HCl 50 mg 06/05/22 22:00 06/10/22 21:30 Trazodone 50 Mg Tab PO 50 mg QHS [facility] Administration
--- NOTE | 2022-06-11 14:10 | Event Note ---
Date: 06/11/22 TANUMS performed on the patient. She scored a 6 which classified her as having dementia.
[2022-06-11] MEDS: traZODone 50 MG TAB PO SCH (21:30)
[2022-06-12] MEDS: DIVALPROEX DR 125 MG TAB PO SCH ×3 (08:29→21:33)
[2022-06-12] MEDS: INSULIN NPH/REGULAR 70/30 INJ SUB-Q SCH ×2 (09:54→17:56)
[2022-06-12] MEDS: MAGNESIUM OXIDE 400 MG TAB PO SCH (09:55)
[2022-06-12] MEDS: CLOPIDOGREL 75 MG TAB PO SCH (09:55)
[2022-06-12] MEDS: INSULIN LISPRO 100 UNIT/ML SUB-Q SCH ×4 (09:55→21:34)
[2022-06-12] MEDS: CHOLECALCIFEROL (VIT D3) 1000 UNIT (25 mcg) TAB PO SCH (09:56)
[2022-06-12] MEDS: QUEtiapine 25 MG TAB PO SCH ×2 (09:56→21:33)
[2022-06-12] MEDS: LISINOPRIL 20 MG TAB PO SCH (09:56)
--- NOTE | 2022-06-12 16:12 | Progress Note ---
Subjective Date of service: 06/12/22 Principal diagnosis: Unspecified Mood Disorder Subjective Comment: The patient was seen today. She is calm and cooperative. She denies SI/HI or hallucinations. The patient is awaiting placement to ensure safety and continuity of mental wellness upon discharge. 06/11 The patient was seen today. She says she's ready to go home. She denies SI/HI or hallucinations of any kind. Staff notes that patient has been restless, threatening and demanding. 06/10 The patient was seen today. She is lying in bed asleep. She easily arouses. She says she feels good but is tired. The patient denies SI/HI or hallucinations. 06/09 The patient was seen today. She is calm and cooperative. She denies SI/HI and hallucinations. The patient will discharge tomorrow if no events overnight, once outpatient resources are in place to ensure continuity of mental wellness. 06/08 The patient was seen today. She is in bed sleeping. She easily arouses. She says she's "tired, but good." The patient denies any SI/HI or hallucinations of any kind. 06/07 The patient was seen today. She is forgetful, and appears delusional at times. She doesn't remember why she was admitted into the hospital. She says she is upset. She is asking about going home. The patient denies SI, but states "I'm homicidal against the person who put me here. I want to get a stick and whoop the sh*t out of them." She says "I woke up and I was here." She denies hallucinations. The patient later asked me "do I know you? Are you waiting to see me" while I was going to see another patient. REVIEW OF SYSTEMS Constitutional: Negative for weight loss ENT: Negative for stridor Respiratory: Negative for cough or hemoptysis All other systems reviewed and are negative MENTAL STATUS EXAMINATION General Appearance and Behavior: Age appropriate, wearing appropriate clothes, cooperative, polite with questioning, good eye contact Cooperation: cooperative Psychomotor Behavior: Psychomotor normal Mood: Good Affect and affective range: congruent with stated affect Thought Process: Goal directed Thought Content: None Speech: Normal volume, Regular rate and rhythm Suicidal Ideation: Denies Homicidal Ideation: Denies Hallucination: Denies Delusions: None elicited Impulse Control: Limited Insight and Judgment: Limited Memory: forgetful Attention: attentive Orientation: Alert and oriented Assessment Unspecified mood disorder Treatment Plan Patient will be admitted for inpatient psychiatric evaluation, medication adjustment and close monitoring The patient's behavior, mood, sleep and appetite will be closely monitored. Patient will be enrolled in individual and group therapeutic sessions and encouraged to attend. Patient will be provided with a safe and structured environment. Patient's physical health needs will be addressed by the Hospitalist. Hospitalist Consulted Labs including CBC, CMP, Lipid profile and Hemoglobin A1C ordered Social Assessment will be completed and the Hand Hardener will work with patient and family to ensure a suitable and safe disposition Medication adjustment will be made as clinically indicated Increase Depakote DR 125mg po TID Usual Wellness Rastafarian/Preservation: - Start Trazodone 50 mg po QHS PRN The patient agreed on the treatment plan, understood the risk, benefit, alternative treatment, potential consequence of no treatment, and gave informed consent. Case staffed with Dr. Mendez Medications and Allergies Allergies Allergy/AdvReac Type Severity Reaction Status Date / Time No Known Allergies Allergy Unverified 06/04/22 18:07 Home Medications Medication Instructions Recorded Confirmed Last Taken Type Atorvastatin [Lipitor Tab] 80 mg PO HS 06/04/22 06/04/22 Unknown History Cholecalciferol Vit D3 [Vitamin D3 2,000 1000units PO DAILY 06/04/22 06/04/22 Unknown History 1,000 UNIT TAB] Clopidogrel [Plavix] 75 mg PO QDAY 06/04/22 06/04/22 Unknown History Insulin Glargine [Lantus VIAL] 20 unit SUB-Q QHS 06/04/22 06/04/22 Unknown History Lispro Insulin [HumaLOG] 5 unit SQ HS 06/04/22 06/04/22 Unknown History QUEtiapine [SEROquel] 25 mg PO BID 06/04/22 06/04/22 Unknown History lisinopriL [Lisinopril] 20 mg PO DAILY 06/04/22 06/04/22 Unknown History Active Meds: Active Medications Cholecalciferol (Cholecalciferol (Vit D3) 1000 Unit (25 Mcg) Tab) 1,000 unit PO DAILY [facility] Last Admin: 06/12/22 09:56 Dose: 1,000 unit Clopidogrel Bisulfate (Clopidogrel 75 Mg Tab) 75 mg PO QDAY [facility] Last Admin: 06/12/22 09:55 Dose: 75 mg Divalproex Sodium (Divalproex Dr 125 Mg Tab) 125 mg PO TID [facility] Last Admin: 06/12/22 13:19 Dose: 125 mg Haloperidol Lactate (Haloperidol Lactate 5 Mg/1 Ml Inj) 5 mg IM Q6H PRN PRN Reason: Agitation Insulin Human Isoph/Insulin Regular (Insulin Nph/Regular 70/30 Inj) 15 unit SUB-Q BIDDIAB [facility] Last Admin: 06/12/22 09:54 Dose: 15 unit Insulin Human Lispro (Insulin Lispro 100 Unit/Ml) 0 unit SUB-Q ACHS [facility]; [place] col Last Admin: 06/12/22 12:09 Dose: 3 unit Lisinopril (Lisinopril 20 Mg Tab) 20 mg PO DAILY [facility] Last Admin: 06/12/22 09:56 Dose: Not Given Lorazepam (Lorazepam 2 Mg/Ml Vial) 2 mg IM Q6H PRN PRN Reason: Agitation Magnesium Oxide (Magnesium Oxide 400 Mg Tab) 400 mg PO QDAY [facility] Last Admin: 06/12/22 09:55 Dose: 400 mg Quetiapine Fumarate (Quetiapine 25 Mg Tab) 25 mg PO BID [facility] Last Admin: 06/12/22 09:56 Dose: 25 mg Trazodone HCl (Trazodone 50 Mg Tab) 50 mg PO QHS [facility] Last Admin: 06/11/22 21:30 Dose: 50 mg Results - Results Labs/Vitals: Laboratory Last Values WBC 8.0 K/mm3 (4.5-11.0) 06/05/22 19:50 RBC 4.24 M/mm3 (3.65-5.03) 06/05/22 19:50 Hgb 13.8 gm/dl (10.1-14.3) 06/05/22 19:50 Hct 37.7 % (30.3-42.9) 06/05/22 19:50 MCV 89 fl (79-97) 06/05/22 19:50 MCH 32 pg (28-32) 06/05/22 19:50 MCHC 37 % (30-34) H 06/05/22 19:50 RDW 13.9 % (13.2-15.2) 06/05/22 19:50 Plt Count 201 K/mm3 (140-440) 06/05/22 19:50 Lymph % (Auto) 30.5 % (13.4-35.0) 06/05/22 19:50 [place] % (Auto) 8.5 % (0.0-7.3) H 06/05/22 19:50 Eos % (Auto) 4.5 % (0.0-4.3) H 06/05/22 19:50 Baso % (Auto) 0.6 % (0.0-1.8) 06/05/22 19:50 Lymph # (Auto) 2.4 K/mm3 (1.2-5.4) 06/05/22 19:50 [place] # (Auto) 0.7 K/mm3 (0.0-0.8) 06/05/22 19:50 Eos # (Auto) 0.4 K/mm3 (0.0-0.4) 06/05/22 19:50 Baso # (Auto) 0.0 K/mm3 (0.0-0.1) 06/05/22 19:50 Seg Neutrophils % 55.9 % (40.0-70.0) 06/05/22 19:50 Seg Neutrophils # 4.5 K/mm3 (1.8-7.7) 06/05/22 19:50 Sodium 140 mmol/L (137-145) 06/06/22 04:59 Potassium 4.1 mmol/L (3.6-5.0) 06/06/22 04:59 Chloride 104.8 mmol/L (98-107) 06/06/22 04:59 Carbon Dioxide 24 mmol/L (22-30) 06/06/22 04:59 Anion Gap 15 mmol/L 06/06/22 04:59 BUN 19 mg/dL (7-17) H 06/06/22 04:59 Creatinine 0.7 mg/dL (0.6-1.2) 06/06/22 04:59 Estimated GFR > 60 ml/min 06/06/22 04:59 BUN/Creatinine Ratio 27 % 06/06/22 04:59 Glucose 233 mg/dL (65-100) H 06/06/22 04:59 POC Glucose 202 mg/dL (70-105) H 06/12/22 11:52 Hemoglobin A1c 7.0 % (4-6) H 06/06/22 04:59 Calcium 9.2 mg/dL (8.4-10.2) 06/06/22 04:59 Magnesium 1.60 mg/dL (1.7-2.3) L 06/06/22 04:59 Total Bilirubin 0.30 mg/dL (0.1-1.2) 06/05/22 13:17 AST 22 units/L (5-40) 06/05/22 13:17 ALT 22 units/L (7-56) 06/05/22 13:17 Alkaline Phosphatase 131 units/L (35-129) H 06/05/22 13:17 Total Protein 6.9 g/dL (6.3-8.2) 06/05/22 13:17 Albumin 4.0 g/dL (3.9-5) 06/05/22 13:17 Albumin/Globulin Ratio 1.4 % 06/05/22 13:17 Triglycerides 110 mg/dL (2-149) 06/05/22 13:17 Cholesterol 145 mg/dL (50-199) 06/05/22 13:17 LDL Cholesterol Direct 63 mg/dL (50-130) 06/05/22 13:17 HDL Cholesterol 73 mg/dL (40-59) H 06/05/22 13:17 Cholesterol/HDL Ratio 1.98 % 06/05/22 13:17 TSH 1.290 mlU/mL (0.270-4.200) 06/05/22 13:17 Last Vital Signs Temp 98 F 06/12/22 09:30 Pulse 99 H 06/12/22 09:30 Resp 16 06/12/22 09:30 BP 104/59 06/12/22 09:30 Pulse Ox 98 06/12/22 09:30
[2022-06-12] MEDS: traZODone 50 MG TAB PO SCH (21:33)
--- NOTE | 2022-06-13 08:43 | Progress Note ---
Subjective Date of service: 06/13/22 Principal diagnosis: Unspecified Mood Disorder Subjective Comment: The patient was seen today. She says she slept good. She denies SI/HI or hallucinations. She is awaiting placement. 06/12 The patient was seen today. She is calm and cooperative. She denies SI/HI or hallucinations. The patient is awaiting placement to ensure safety and continuity of mental wellness upon discharge. 06/11 The patient was seen today. She says she's ready to go home. She denies SI/HI or hallucinations of any kind. Staff notes that patient has been restless, threatening and demanding. 06/10 The patient was seen today. She is lying in bed asleep. She easily arouses. She says she feels good but is tired. The patient denies SI/HI or hallucinations. 06/09 The patient was seen today. She is calm and cooperative. She denies SI/HI and hallucinations. The patient will discharge tomorrow if no events overnight, once outpatient resources are in place to ensure continuity of mental wellness. 06/08 The patient was seen today. She is in bed sleeping. She easily arouses. She says she's "tired, but good." The patient denies any SI/HI or hallucinations of any kind. 06/07 The patient was seen today. She is forgetful, and appears delusional at times. She doesn't remember why she was admitted into the hospital. She says she is upset. She is asking about going home. The patient denies SI, but states "I'm homicidal against the person who put me here. I want to get a stick and whoop the sh*t out of them." She says "I woke up and I was here." She denies hallucinations. The patient later asked me "do I know you? Are you waiting to see me" while I was going to see another patient. REVIEW OF SYSTEMS Constitutional: Negative for weight loss ENT: Negative for stridor Respiratory: Negative for cough or hemoptysis All other systems reviewed and are negative MENTAL STATUS EXAMINATION General Appearance and Behavior: Age appropriate, wearing appropriate clothes, cooperative, polite with questioning, good eye contact Cooperation: cooperative Psychomotor Behavior: Psychomotor normal Mood: Good Affect and affective range: congruent with stated affect Thought Process: Goal directed Thought Content: None Speech: Normal volume, Regular rate and rhythm Suicidal Ideation: Denies Homicidal Ideation: Denies Hallucination: Denies Delusions: None elicited Impulse Control: Limited Insight and Judgment: Limited Memory: forgetful Attention: attentive Orientation: Alert and oriented Assessment Unspecified mood disorder Treatment Plan Patient will be admitted for inpatient psychiatric evaluation, medication adjustment and close monitoring The patient's behavior, mood, sleep and appetite will be closely monitored. Patient will be enrolled in individual and group therapeutic sessions and encouraged to attend. Patient will be provided with a safe and structured environment. Patient's physical health needs will be addressed by the Hospitalist. Hospitalist Consulted Labs including CBC, CMP, Lipid profile and Hemoglobin A1C ordered Social Assessment will be completed and the [employer] Sewing Machine Operator will work with patient and family to ensure a suitable and safe disposition Medication adjustment will be made as clinically indicated Increase Depakote DR 125mg po TID yesterday No changes made today Usual Wellness Mu-Ism/Preservation: - Start Trazodone 50 mg po QHS PRN The patient agreed on the treatment plan, understood the risk, benefit, alternative treatment, potential consequence of no treatment, and gave informed consent. Case staffed with Dr. Mendez Medications and Allergies Allergies Allergy/AdvReac Type Severity Reaction Status Date / Time No Known Allergies Allergy Unverified 06/04/22 18:07 Home Medications Medication Instructions Recorded Confirmed Last Taken Type Atorvastatin [Lipitor Tab] 80 mg PO HS 06/04/22 06/04/22 Unknown History Cholecalciferol Vit D3 [Vitamin D3 2,000 1000units PO DAILY 06/04/22 06/04/22 Unknown History 1,000 UNIT TAB] Clopidogrel [Plavix] 75 mg PO QDAY 06/04/22 06/04/22 Unknown History Insulin Glargine [Lantus VIAL] 20 unit SUB-Q QHS 06/04/22 06/04/22 Unknown History Lispro Insulin [HumaLOG] 5 unit SQ HS 06/04/22 06/04/22 Unknown History QUEtiapine [SEROquel] 25 mg PO BID 06/04/22 06/04/22 Unknown History lisinopriL [Lisinopril] 20 mg PO DAILY 06/04/22 06/04/22 Unknown History Active Meds: Active Medications Cholecalciferol (Cholecalciferol (Vit D3) 1000 Unit (25 Mcg) Tab) 1,000 unit PO DAILY [facility] Last Admin: 06/12/22 09:56 Dose: 1,000 unit Clopidogrel Bisulfate (Clopidogrel 75 Mg Tab) 75 mg PO QDAY [facility] Last Admin: 06/12/22 09:55 Dose: 75 mg Divalproex Sodium (Divalproex Dr 125 Mg Tab) 125 mg PO TID [facility] Last Admin: 06/12/22 21:33 Dose: 125 mg Haloperidol Lactate (Haloperidol Lactate 5 Mg/1 Ml Inj) 5 mg IM Q6H PRN PRN Reason: Agitation Insulin Human Isoph/Insulin Regular (Insulin Nph/Regular 70/30 Inj) 15 unit SUB-Q BIDDIAB [facility] Last Admin: 06/12/22 17:56 Dose: 15 unit Insulin Human Lispro (Insulin Lispro 100 Unit/Ml) 0 unit SUB-Q ACHS [facility]; Protocol Last Admin: 06/12/22 21:34 Dose: 2 unit Lisinopril (Lisinopril 20 Mg Tab) 20 mg PO DAILY [facility] Last Admin: 06/12/22 09:56 Dose: Not Given Lorazepam (Lorazepam 2 Mg/Ml Vial) 2 mg IM Q6H PRN PRN Reason: Agitation Magnesium Oxide (Magnesium Oxide 400 Mg Tab) 400 mg PO QDAY [facility] Last Admin: 06/12/22 09:55 Dose: 400 mg Quetiapine Fumarate (Quetiapine 25 Mg Tab) 25 mg PO BID [facility] Last Admin: 06/12/22 21:33 Dose: 25 mg Trazodone HCl (Trazodone 50 Mg Tab) 50 mg PO QHS [facility] Last Admin: 06/12/22 21:33 Dose: 50 mg Results - Results Labs/Vitals: Laboratory Last Values WBC 8.0 K/mm3 (4.5-11.0) 06/05/22 19:50 RBC 4.24 M/mm3 (3.65-5.03) 06/05/22 19:50 Hgb 13.8 gm/dl (10.1-14.3) 06/05/22 19:50 Hct 37.7 % (30.3-42.9) 06/05/22 19:50 MCV 89 fl (79-97) 06/05/22 19:50 MCH 32 pg (28-32) 06/05/22 19:50 MCHC 37 % (30-34) H 06/05/22 19:50 RDW 13.9 % (13.2-15.2) 06/05/22 19:50 Plt Count 201 K/mm3 (140-440) 06/05/22 19:50 Lymph % (Auto) 30.5 % (13.4-35.0) 06/05/22 19:50 [place] % (Auto) 8.5 % (0.0-7.3) H 06/05/22 19:50 Eos % (Auto) 4.5 % (0.0-4.3) H 06/05/22 19:50 Baso % (Auto) 0.6 % (0.0-1.8) 06/05/22 19:50 Lymph # (Auto) 2.4 K/mm3 (1.2-5.4) 06/05/22 19:50 [place] # (Auto) 0.7 K/mm3 (0.0-0.8) 06/05/22 19:50 Eos # (Auto) 0.4 K/mm3 (0.0-0.4) 06/05/22 19:50 Baso # (Auto) 0.0 K/mm3 (0.0-0.1) 06/05/22 19:50 Seg Neutrophils % 55.9 % (40.0-70.0) 06/05/22 19:50 Seg Neutrophils # 4.5 K/mm3 (1.8-7.7) 06/05/22 19:50 Sodium 140 mmol/L (137-145) 06/06/22 04:59 Potassium 4.1 mmol/L (3.6-5.0) 06/06/22 04:59 Chloride 104.8 mmol/L (98-107) 06/06/22 04:59 Carbon Dioxide 24 mmol/L (22-30) 06/06/22 04:59 Anion Gap 15 mmol/L 06/06/22 04:59 BUN 19 mg/dL (7-17) H 06/06/22 04:59 Creatinine 0.7 mg/dL (0.6-1.2) 06/06/22 04:59 Estimated GFR > 60 ml/min 06/06/22 04:59 BUN/Creatinine Ratio 27 % 06/06/22 04:59 Glucose 233 mg/dL (65-100) H 06/06/22 04:59 POC Glucose 163 mg/dL (70-105) H 06/13/22 06:29 Hemoglobin A1c 7.0 % (4-6) H 06/06/22 04:59 Calcium 9.2 mg/dL (8.4-10.2) 06/06/22 04:59 Magnesium 1.60 mg/dL (1.7-2.3) L 06/06/22 04:59 Total Bilirubin 0.30 mg/dL (0.1-1.2) 06/05/22 13:17 AST 22 units/L (5-40) 06/05/22 13:17 ALT 22 units/L (7-56) 06/05/22 13:17 Alkaline Phosphatase 131 units/L (35-129) H 06/05/22 13:17 Total Protein 6.9 g/dL (6.3-8.2) 06/05/22 13:17 Albumin 4.0 g/dL (3.9-5) 06/05/22 13:17 Albumin/Globulin Ratio 1.4 % 06/05/22 13:17 Triglycerides 110 mg/dL (2-149) 06/05/22 13:17 Cholesterol 145 mg/dL (50-199) 06/05/22 13:17 LDL Cholesterol Direct 63 mg/dL (50-130) 06/05/22 13:17 HDL Cholesterol 73 mg/dL (40-59) H 06/05/22 13:17 Cholesterol/HDL Ratio 1.98 % 06/05/22 13:17 TSH 1.290 mlU/mL (0.270-4.200) 06/05/22 13:17 Last Vital Signs Temp 97.8 F 06/12/22 19:44 Pulse 86 06/12/22 19:44 Resp 18 06/12/22 19:44 BP 119/65 06/12/22 19:44 Pulse Ox 97 06/12/22 19:44
[2022-06-13] MEDS: MAGNESIUM OXIDE 400 MG TAB PO SCH (09:22)
[2022-06-13] MEDS: QUEtiapine 25 MG TAB PO SCH ×2 (09:22→21:58)
[2022-06-13] MEDS: CLOPIDOGREL 75 MG TAB PO SCH (09:22)
[2022-06-13] MEDS: LISINOPRIL 20 MG TAB PO SCH (09:23)
[2022-06-13] MEDS: DIVALPROEX DR 125 MG TAB PO SCH ×3 (09:23→20:24)
[2022-06-13] MEDS: CHOLECALCIFEROL (VIT D3) 1000 UNIT (25 mcg) TAB PO SCH (09:23)
[2022-06-13] MEDS: INSULIN LISPRO 100 UNIT/ML SUB-Q SCH ×4 (09:27→21:58)
[2022-06-13] MEDS: INSULIN NPH/REGULAR 70/30 INJ SUB-Q SCH ×2 (09:28→17:22)
--- NOTE | 2022-06-13 18:48 | Progress Note ---
Assessment and Plan - Patient Problems (1) Generalized anxiety disorder Current Visit: Yes Status: Acute Plan to address problem: Benzodiazepine therapy as clinically indicated, cognitive behavioral therapy, (2) Major depression Current Visit: Yes Status: Acute Plan to address problem: Continue medical management, supportive care. (3) Vascular dementia with behavioral disturbance Current Visit: Yes Status: Acute Plan to address problem: Verbal prompting, verbal redirection, benzodiazepine therapy as clinically indicated (4) Cerebral atherosclerosis Current Visit: Yes Status: Acute Plan to address problem: Risk factor reduction, antiplatelet therapy as clinically indicated. (5) Diabetes Current Visit: Yes Status: Acute Plan to address problem: Consistent carbohydrate diet, Accu-Chek, insulin protocol. Hypoglycemia protocol (6) Hypertension Current Visit: Yes Status: Acute Qualifiers: Hypertension type: primary hypertension Qualified Code(s): I10 - Essential (primary) hypertension Plan to address problem: Monitor blood pressure every shift (7) Hyperlipidemia Current Visit: Yes Status: Acute Plan to address problem: Statin therapy, low-cholesterol diet. (8) Obesity Current Visit: Yes Status: Acute Plan to address problem: Balanced diet, increase physical activity discharge. (9) Advance care planning Current Visit: Yes Status: Acute Plan to address problem: Disease education data, care plan discussed, diagnosis discussed, prognosis discussed, +30 minutes. (10) Preventative health care Current Visit: Yes Status: Acute Plan to address problem: Patient counseled regarding balanced diet, risk factor reduction, outpatient follow-up with primary care physician for all age and risk factor appropriate screening test. +30 minutes. History Interval history: 61 YO Female with Vascular Dementia with behavioral disturbance, Cerebral Atherosclerosis, HTN, HLD, CVA admitted to [facility] for psychiatric stabilization. Patient seen and evaluated in the recreation room. Patient appears to be at baseline level of cognition and function. No reported nursing events. Hospitalist Physical - Constitutional Vitals: Temp Pulse Resp BP Pulse Ox 97.3 F L 83 18 133/75 95 06/13/22 07:06 06/13/22 09:23 06/13/22 07:06 06/13/22 09:23 06/13/22 07:06 General appearance: Present: no acute distress, well-nourished, obese - EENT Eyes: Present: PERRL ENT: hearing decreased - Neck Neck: Present: supple - Respiratory Respiratory effort: normal Respiratory: bilateral: diminished - Cardiovascular Rhythm: regular Heart Sounds: Present: S1 & S2 - Extremities Extremities: no ischemia Peripheral Pulses: within normal limits - Abdominal General gastrointestinal: soft, non-tender, non-distended - Integumentary Integumentary: Present: clear, dry - Psychiatric Psychiatric: cooperative - Neurologic Neurologic: CNII-XII intact Results - Labs CBC & Chem 7: 06/05/22 19:50 06/06/22 04:59 Labs: Laboratory Last Values WBC 8.0 K/mm3 (4.5-11.0) 06/05/22 19:50 RBC 4.24 M/mm3 (3.65-5.03) 06/05/22 19:50 Hgb 13.8 gm/dl (10.1-14.3) 06/05/22 19:50 Hct 37.7 % (30.3-42.9) 06/05/22 19:50 MCV 89 fl (79-97) 06/05/22 19:50 MCH 32 pg (28-32) 06/05/22 19:50 MCHC 37 % (30-34) H 06/05/22 19:50 RDW 13.9 % (13.2-15.2) 06/05/22 19:50 Plt Count 201 K/mm3 (140-440) 06/05/22 19:50 Lymph % (Auto) 30.5 % (13.4-35.0) 06/05/22 19:50 [place] % (Auto) 8.5 % (0.0-7.3) H 06/05/22 19:50 Eos % (Auto) 4.5 % (0.0-4.3) H 06/05/22 19:50 Baso % (Auto) 0.6 % (0.0-1.8) 06/05/22 19:50 Lymph # (Auto) 2.4 K/mm3 (1.2-5.4) 06/05/22 19:50 [place] # (Auto) 0.7 K/mm3 (0.0-0.8) 06/05/22 19:50 Eos # (Auto) 0.4 K/mm3 (0.0-0.4) 06/05/22 19:50 Baso # (Auto) 0.0 K/mm3 (0.0-0.1) 06/05/22 19:50 Seg Neutrophils % 55.9 % (40.0-70.0) 06/05/22 19:50 Seg Neutrophils # 4.5 K/mm3 (1.8-7.7) 06/05/22 19:50 Sodium 140 mmol/L (137-145) 06/06/22 04:59 Potassium 4.1 mmol/L (3.6-5.0) 06/06/22 04:59 Chloride 104.8 mmol/L (98-107) 06/06/22 04:59 Carbon Dioxide 24 mmol/L (22-30) 06/06/22 04:59 Anion Gap 15 mmol/L 06/06/22 04:59 BUN 19 mg/dL (7-17) H 06/06/22 04:59 Creatinine 0.7 mg/dL (0.6-1.2) 06/06/22 04:59 Estimated GFR > 60 ml/min 06/06/22 04:59 BUN/Creatinine Ratio 27 % 06/06/22 04:59 Glucose 233 mg/dL (65-100) H 06/06/22 04:59 POC Glucose 151 mg/dL (70-105) H 06/13/22 16:24 Hemoglobin A1c 7.0 % (4-6) H 06/06/22 04:59 Calcium 9.2 mg/dL (8.4-10.2) 06/06/22 04:59 Magnesium 1.60 mg/dL (1.7-2.3) L 06/06/22 04:59 Total Bilirubin 0.30 mg/dL (0.1-1.2) 06/05/22 13:17 AST 22 units/L (5-40) 06/05/22 13:17 ALT 22 units/L (7-56) 06/05/22 13:17 Alkaline Phosphatase 131 units/L (35-129) H 06/05/22 13:17 Total Protein 6.9 g/dL (6.3-8.2) 06/05/22 13:17 Albumin 4.0 g/dL (3.9-5) 06/05/22 13:17 Albumin/Globulin Ratio 1.4 % 06/05/22 13:17 Triglycerides 110 mg/dL (2-149) 06/05/22 13:17 Cholesterol 145 mg/dL (50-199) 06/05/22 13:17 LDL Cholesterol Direct 63 mg/dL (50-130) 06/05/22 13:17 HDL Cholesterol 73 mg/dL (40-59) H 06/05/22 13:17 Cholesterol/HDL Ratio 1.98 % 06/05/22 13:17 TSH 1.290 mlU/mL (0.270-4.200) 06/05/22 13:17 Lara/IV: Voiding Method Toilet Active Medications - Current Medications Current Medications: Generic Name Dose Route Start Last Admin Trade Name Freq PRN Reason Stop Dose Admin Cholecalciferol 1,000 unit 06/06/22 10:00 06/13/22 09:23 Cholecalciferol (Vit D3) 1000 Unit (25 Mcg) Tab PO 1,000 unit DAILY PORSHA Administration Clopidogrel Bisulfate 75 mg 06/06/22 10:00 06/13/22 09:22 Clopidogrel 75 Mg Tab PO 75 mg QDAY PORSHA Administration Divalproex Sodium 125 mg 06/11/22 10:00 06/13/22 13:[address] 125 Mg Tab PO 125 mg TID PORSHA Administration Haloperidol Lactate 5 mg 06/05/22 18:06 Haloperidol Lactate 5 Mg/1 Ml Inj IM Q6H PRN Agitation Insulin Human Isoph/Insulin Regular 15 unit 06/07/22 17:30 06/13/22 17:22 Insulin Nph/Regular 70/30 Inj SUB-Q 15 unit BIDDIAB PORSHA Administration Insulin Human Lispro 0 unit 06/05/22 22:00 06/13/22 17:21 Insulin Lispro 100 Unit/Ml SUB-Q 2 unit ACHS PORSHA Administration Protocol Lisinopril 20 mg 06/06/22 10:00 06/13/22 09:23 Lisinopril 20 Mg Tab PO 20 mg DAILY PORSHA Administration Lorazepam 2 mg 06/05/22 18:07 Lorazepam 2 Mg/Ml Vial IM Q6H PRN Agitation Magnesium Oxide 400 mg 06/07/22 10:00 06/13/22 09:22 Magnesium Oxide 400 Mg Tab PO 400 mg QDAY PORSHA Administration Quetiapine Fumarate 25 mg 06/05/22 22:00 06/13/22 09:22 Quetiapine 25 Mg Tab PO 25 mg BID PORSHA Administration Trazodone HCl 50 mg 06/05/22 22:00 06/12/22 21:33 Trazodone 50 Mg Tab PO 50 mg QHS PORSHA Administration Nutrition/Malnutrition Assess - Dietary Evaluation Nutrition/Malnutrition Findings: Nutrition Notes Start: 06/12/22 14:57 Freq: Status: Active Protocol: Document 06/12/22 14:58 MATTEO (Rec: 06/12/22 15:12 MATTEO [id number]) Nutrition Notes Need for Assessment generated from: LOS Initial or Follow up Assessment Current Diagnosis Diabetes,Hypertension,Stroke, Hyperlipidemia Other Pertinent Diagnosis Dementia, Unspecified Mood Disorder. Current Diet Consistent Carbohydrates Diet (since B 06/06). Labs/Tests 06/12: N/A. Pertinent Medications 06/12: Humulin 70/30 15U, Humalog 3U, others nutritionally unremarkable. 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 Weight Status Obese Subjective/Other Information RD consult for LOS assessment. Pt's PO intake of meals has been Good (100%) and well tolerated, according to ADL notes. Pt is on Room Air, O2 saturation @ 98%, according to Physical Assessment History notes. Percent of energy/protein needs met: Prescribed Consistent Carbohydrates Diet provides for energy/protein needs (2, 061 Kcal/91 g) during LOS. Burn Absent Trauma Absent GI Symptoms None Food Allergy No Skin Integrity/Comment Assessment WNL. Current % PO Good (75-100%) Minimum of two criteria No Fluid Accumulation N/A Reduced Digital Marketing Analyst Strength N/A (non-severe) Protein-Calorie Malnutrition N\A #1 Nutrition Diagnosis No nutrition diagnosis at this time Is patient on ventilator? No Is Patient Ambulatory and/or Out of Bed Yes REE-([facility]-ambulatory/OOB) [ 1880.775 [id number]] Kcal/Kg value to use for calculation 19 Approximate Energy Requirements Using 1653 kcal/Kg Calculation Used for Recommendations Kcal/kg Additional Notes Protein: 0.8-1 g/Kg AdjBW; 58- 73 g/day. Fluids: 1 ml/Kcal, or as per MD. Nutrition Intervention Change Diet Order: Continue Consistent Carbohydrates Diet as tolerated. Follow-Up By: 06/19/22 Additional Comments Continue monitoring food tolerance, %PO intake of meals , and BM.
[2022-06-13] MEDS: traZODone 50 MG TAB PO SCH (21:58)
[2022-06-14] MEDS: QUEtiapine 25 MG TAB PO SCH ×2 (09:01→21:26)
[2022-06-14] MEDS: MAGNESIUM OXIDE 400 MG TAB PO SCH (09:01)
[2022-06-14] MEDS: CLOPIDOGREL 75 MG TAB PO SCH (09:01)
[2022-06-14] MEDS: CHOLECALCIFEROL (VIT D3) 1000 UNIT (25 mcg) TAB PO SCH (09:01)
[2022-06-14] MEDS: DIVALPROEX DR 125 MG TAB PO SCH ×3 (09:01→20:44)
[2022-06-14] MEDS: LISINOPRIL 20 MG TAB PO SCH (09:02)
[2022-06-14] MEDS: INSULIN LISPRO 100 UNIT/ML SUB-Q SCH ×4 (09:03→22:34)
[2022-06-14] MEDS: INSULIN NPH/REGULAR 70/30 INJ SUB-Q SCH ×2 (09:03→17:02)
--- NOTE | 2022-06-14 11:56 | Progress Note ---
Subjective Date of service: 06/14/22 Principal diagnosis: Unspecified Mood Disorder Subjective Comment: 06/14:The patient was seen today. She is focused on discharge; she denies depression. She reports mood as good. She denies SI/HI or hallucinations. She is awaiting placement. 06/13 The patient was seen today. She says she slept good. She denies SI/HI or hallucinations. She is awaiting placement. 06/12 The patient was seen today. She is calm and cooperative. She denies SI/HI or hallucinations. The patient is awaiting placement to ensure safety and continuity of mental wellness upon discharge. 06/11 The patient was seen today. She says she's ready to go home. She denies SI/HI or hallucinations of any kind. Staff notes that patient has been restless, threatening and demanding. 06/10 The patient was seen today. She is lying in bed asleep. She easily arouses. She says she feels good but is tired. The patient denies SI/HI or hallucinations. 06/09 The patient was seen today. She is calm and cooperative. She denies SI/HI and hallucinations. The patient will discharge tomorrow if no events overnight, once outpatient resources are in place to ensure continuity of mental wellness. 06/08 The patient was seen today. She is in bed sleeping. She easily arouses. She says she's "tired, but good." The patient denies any SI/HI or hallucinations of any kind. 06/07 The patient was seen today. She is forgetful, and appears delusional at times. She doesn't remember why she was admitted into the hospital. She says she is upset. She is asking about going home. The patient denies SI, but states "I'm homicidal against the person who put me here. I want to get a stick and whoop the sh*t out of them." She says "I woke up and I was here." She denies hallucinations. The patient later asked me "do I know you? Are you waiting to see me" while I was going to see another patient. REVIEW OF SYSTEMS Constitutional: Negative for weight loss ENT: Negative for stridor Respiratory: Negative for cough or hemoptysis All other systems reviewed and are negative MENTAL STATUS EXAMINATION General Appearance and Behavior: Age appropriate, wearing appropriate clothes, cooperative, polite with questioning, good eye contact Cooperation: cooperative Psychomotor Behavior: Psychomotor normal Mood: Good Affect and affective range: congruent with stated affect Thought Process: Goal directed Thought Content: None Speech: Normal volume, Regular rate and rhythm Suicidal Ideation: Denies Homicidal Ideation: Denies Hallucination: Denies Delusions: None elicited Impulse Control: Limited Insight and Judgment: Limited Memory: forgetful Attention: attentive Orientation: Alert and oriented Assessment Unspecified mood disorder Treatment Plan Patient will be admitted for inpatient psychiatric evaluation, medication adju stment and close monitoring The patient's behavior, mood, sleep and appetite will be closely monitored. Patient will be enrolled in individual and group therapeutic sessions and encouraged to attend. Patient will be provided with a safe and structured environment. Patient's physical health needs will be addressed by the Hospitalist. Hospitalist Consulted Labs including CBC, CMP, Lipid profile and Hemoglobin A1C ordered Social Assessment will be completed and the Decorating Instructor will work with patient and family to ensure a suitable and safe disposition Medication adjustment will be made as clinically indicated Continue Depakote DR 125mg po TID No changes made today Usual Wellness Anabaptist/Preservation: - Start Trazodone 50 mg po QHS PRN The patient agreed on the treatment plan, understood the risk, benefit, alternative treatment, potential consequence of no treatment, and gave informed consent. Case staffed with Dr. Mendez Medications and Allergies Medications and Allergies Allergies Allergy/AdvReac Type Severity Reaction Status Date / Time No Known Allergies Allergy Unverified 06/04/22 18:07 Home Medications Medication Instructions Recorded Confirmed Last Taken Type Atorvastatin [Lipitor Tab] 80 mg PO HS 06/04/22 06/04/22 Unknown History Cholecalciferol Vit D3 [Vitamin D3 2,000 1000units PO DAILY 06/04/22 06/04/22 Unknown History 1,000 UNIT TAB] Clopidogrel [Plavix] 75 mg PO QDAY 06/04/22 06/04/22 Unknown History Insulin Glargine [Lantus VIAL] 20 unit SUB-Q QHS 06/04/22 06/04/22 Unknown History Lispro Insulin [HumaLOG] 5 unit SQ HS 06/04/22 06/04/22 Unknown History QUEtiapine [SEROquel] 25 mg PO BID 06/04/22 06/04/22 Unknown History lisinopriL [Lisinopril] 20 mg PO DAILY 06/04/22 06/04/22 Unknown History Active Meds: Active Medications Cholecalciferol (Cholecalciferol (Vit D3) 1000 Unit (25 Mcg) Tab) 1,000 unit PO DAILY [facility] Last Admin: 06/14/22 09:01 Dose: 1,000 unit Clopidogrel Bisulfate (Clopidogrel 75 Mg Tab) 75 mg PO QDAY [facility] Last Admin: 06/14/22 09:01 Dose: 75 mg Divalproex Sodium (Divalproex Dr 125 Mg Tab) 125 mg PO TID [facility] Last Admin: 06/14/22 09:01 Dose: 125 mg Haloperidol Lactate (Haloperidol Lactate 5 Mg/1 Ml Inj) 5 mg IM Q6H PRN PRN Reason: Agitation Insulin Human Isoph/Insulin Regular (Insulin Nph/Regular 70/30 Inj) 15 unit SUB-Q BIDDIAB [facility] Last Admin: 06/14/22 09:03 Dose: 15 unit Insulin Human Lispro (Insulin Lispro 100 Unit/Ml) 0 unit SUB-Q ACHS [facility]; Protocol Last Admin: 06/14/22 09:03 Dose: 2 unit Lisinopril (Lisinopril 20 Mg Tab) 20 mg PO DAILY [facility] Last Admin: 06/14/22 09:02 Dose: 20 mg Lorazepam (Lorazepam 2 Mg/Ml Vial) 2 mg IM Q6H PRN PRN Reason: Agitation Magnesium Oxide (Magnesium Oxide 400 Mg Tab) 400 mg PO QDAY [facility] Last Admin: 06/14/22 09:01 Dose: 400 mg Quetiapine Fumarate (Quetiapine 25 Mg Tab) 25 mg PO BID [facility] Last Admin: 06/14/22 09:01 Dose: 25 mg Trazodone HCl (Trazodone 50 Mg Tab) 50 mg PO QHS [facility] Last Admin: 06/13/22 21:58 Dose: 50 mg Results - Results Labs/Vitals: Laboratory Last Values WBC 8.0 K/mm3 (4.5-11.0) 06/05/22 19:50 RBC 4.24 M/mm3 (3.65-5.03) 06/05/22 19:50 Hgb 13.8 gm/dl (10.1-14.3) 06/05/22 19:50 Hct 37.7 % (30.3-42.9) 06/05/22 19:50 MCV 89 fl (79-97) 06/05/22 19:50 MCH 32 pg (28-32) 06/05/22 19:50 MCHC 37 % (30-34) H 06/05/22 19:50 RDW 13.9 % (13.2-15.2) 06/05/22 19:50 Plt Count 201 K/mm3 (140-440) 06/05/22 19:50 Lymph % (Auto) 30.5 % (13.4-35.0) 06/05/22 19:50 [place] % (Auto) 8.5 % (0.0-7.3) H 06/05/22 19:50 Eos % (Auto) 4.5 % (0.0-4.3) H 06/05/22 19:50 Baso % (Auto) 0.6 % (0.0-1.8) 06/05/22 19:50 Lymph # (Auto) 2.4 K/mm3 (1.2-5.4) 06/05/22 19:50 [place] # (Auto) 0.7 K/mm3 (0.0-0.8) 06/05/22 19:50 Eos # (Auto) 0.4 K/mm3 (0.0-0.4) 06/05/22 19:50 Baso # (Auto) 0.0 K/mm3 (0.0-0.1) 06/05/22 19:50 Seg Neutrophils % 55.9 % (40.0-70.0) 06/05/22 19:50 Seg Neutrophils # 4.5 K/mm3 (1.8-7.7) 06/05/22 19:50 Sodium 140 mmol/L (137-145) 06/06/22 04:59 Potassium 4.1 mmol/L (3.6-5.0) 06/06/22 04:59 Chloride 104.8 mmol/L (98-107) 06/06/22 04:59 Carbon Dioxide 24 mmol/L (22-30) 06/06/22 04:59 Anion Gap 15 mmol/L 06/06/22 04:59 BUN 19 mg/dL (7-17) H 06/06/22 04:59 Creatinine 0.7 mg/dL (0.6-1.2) 06/06/22 04:59 Estimated GFR > 60 ml/min 06/06/22 04:59 BUN/Creatinine Ratio 27 % 06/06/22 04:59 Glucose 233 mg/dL (65-100) H 06/06/22 04:59 POC Glucose 140 mg/dL (70-105) H 06/14/22 11:18 Hemoglobin A1c 7.0 % (4-6) H 06/06/22 04:59 Calcium 9.2 mg/dL (8.4-10.2) 06/06/22 04:59 Magnesium 1.60 mg/dL (1.7-2.3) L 06/06/22 04:59 Total Bilirubin 0.30 mg/dL (0.1-1.2) 06/05/22 13:17 AST 22 units/L (5-40) 06/05/22 13:17 ALT 22 units/L (7-56) 06/05/22 13:17 Alkaline Phosphatase 131 units/L (35-129) H 06/05/22 13:17 Total Protein 6.9 g/dL (6.3-8.2) 06/05/22 13:17 Albumin 4.0 g/dL (3.9-5) 06/05/22 13:17 Albumin/Globulin Ratio 1.4 % 06/05/22 13:17 Triglycerides 110 mg/dL (2-149) 06/05/22 13:17 Cholesterol 145 mg/dL (50-199) 06/05/22 13:17 LDL Cholesterol Direct 63 mg/dL (50-130) 06/05/22 13:17 HDL Cholesterol 73 mg/dL (40-59) H 06/05/22 13:17 Cholesterol/HDL Ratio 1.98 % 06/05/22 13:17 TSH 1.290 mlU/mL (0.270-4.200) 06/05/22 13:17 Last Vital Signs Temp 97.6 F 06/13/22 21:02 Pulse 88 06/14/22 09:02 Resp 16 06/13/22 21:02 BP 126/73 06/14/22 09:02 Pulse Ox 96 06/13/22 21:02
[2022-06-14] MEDS: traZODone 50 MG TAB PO SCH (21:26)
[2022-06-15] MEDS: INSULIN LISPRO 100 UNIT/ML SUB-Q SCH ×4 (07:48→21:31)
--- NOTE | 2022-06-15 09:18 | Progress Note ---
Subjective Date of service: 06/15/22 Principal diagnosis: Unspecified Mood Disorder Subjective Comment: 06/15: The patient was seen today. The patient states she is doing well " I'm breathing, I just want to go home." She endorses depression, rates as 2/10. She denies SI/HI or hallucinations. She is awaiting placement. 06/14:The patient was seen today. She is focused on discharge; she denies depression. She reports mood as good. She denies SI/HI or hallucinations. She is awaiting placement. 06/13 The patient was seen today. She says she slept good. She denies SI/HI or hallucinations. She is awaiting placement. 06/12 The patient was seen today. She is calm and cooperative. She denies SI/HI or hallucinations. The patient is awaiting placement to ensure safety and continuity of mental wellness upon discharge. 06/11 The patient was seen today. She says she's ready to go home. She denies SI/HI or hallucinations of any kind. Staff notes that patient has been restless, threatening and demanding. 06/10 The patient was seen today. She is lying in bed asleep. She easily arouses. She says she feels good but is tired. The patient denies SI/HI or hallucinations. 06/09 The patient was seen today. She is calm and cooperative. She denies SI/HI and hallucinations. The patient will discharge tomorrow if no events overnight, once outpatient resources are in place to ensure continuity of mental wellness. 06/08 The patient was seen today. She is in bed sleeping. She easily arouses. She says she's "tired, but good." The patient denies any SI/HI or hallucinations of any kind. 06/07 The patient was seen today. She is forgetful, and appears delusional at times. She doesn't remember why she was admitted into the hospital. She says she is upset. She is asking about going home. The patient denies SI, but states "I'm homicidal against the person who put me here. I want to get a stick and whoop the sh*t out of them." She says "I woke up and I was here." She denies hallucinations. The patient later asked me "do I know you? Are you waiting to see me" while I was going to see another patient. REVIEW OF SYSTEMS Constitutional: Negative for weight loss ENT: Negative for stridor Respiratory: Negative for cough or hemoptysis All other systems reviewed and are negative MENTAL STATUS EXAMINATION General Appearance and Behavior: Age appropriate, wearing appropriate clothes, cooperative, polite with questioning, good eye contact Cooperation: cooperative Psychomotor Behavior: Psychomotor normal Mood: ok Affect and affective range: congruent with stated affect Thought Process: Goal directed Thought Content: reality oriented Speech: Normal volume, Regular rate and rhythm Suicidal Ideation: Denies Homicidal Ideation: Denies Hallucination: Denies Delusions: None elicited Impulse Control: Limited Insight and Judgment: Limited Memory: forgetful Attention: attentive Orientation: Alert and oriented Assessment Unspecified mood disorder Treatment Plan Patient will be admitted for inpatient psychiatric evaluation, medication adjustment and close monitoring The patient's behavior, mood, sleep and appetite will be closely monitored. Patient will be enrolled in individual and group therapeutic sessions and encouraged to attend. Patient will be provided with a safe and structured environment. Patient's physical health needs will be addressed by the Hospitalist. Hospitalist Consulted Labs including CBC, CMP, Lipid profile and Hemoglobin A1C ordered Social Assessment will be completed and the Zipper Lining Folder will work with patient and family to ensure a suitable and safe disposition Medication adjustment will be made as clinically indicated Continue Depakote DR 125mg po TID No changes made today Usual Wellness Scientologist/Preservation: - Start Trazodone 50 mg po QHS PRN The patient agreed on the treatment plan, understood the risk, benefit, alternative treatment, potential consequence of no treatment, and gave informed consent. Case staffed with Dr. Mendez Medications and Allergies Medications and Allergies Allergies Allergy/AdvReac Type Severity Reaction Status Date / Time No Known Allergies Allergy Unverified 06/04/22 18:07 Home Medications Medication Instructions Recorded Confirmed Last Taken Type Atorvastatin [Lipitor Tab] 80 mg PO HS 06/04/22 06/04/22 Unknown History Cholecalciferol Vit D3 [Vitamin D3 2,000 1000units PO DAILY 06/04/22 06/04/22 Unknown History 1,000 UNIT TAB] Clopidogrel [Plavix] 75 mg PO QDAY 06/04/22 06/04/22 Unknown History Insulin Glargine [Lantus VIAL] 20 unit SUB-Q QHS 06/04/22 06/04/22 Unknown History Lispro Insulin [HumaLOG] 5 unit SQ HS 06/04/22 06/04/22 Unknown History QUEtiapine [SEROquel] 25 mg PO BID 06/04/22 06/04/22 Unknown History lisinopriL [Lisinopril] 20 mg PO DAILY 06/04/22 06/04/22 Unknown History Active Meds: Active Medications Cholecalciferol (Cholecalciferol (Vit D3) 1000 Unit (25 Mcg) Tab) 1,000 unit PO DAILY [facility] Last Admin: 06/14/22 09:01 Dose: 1,000 unit Clopidogrel Bisulfate (Clopidogrel 75 Mg Tab) 75 mg PO QDAY [facility] Last Admin: 06/14/22 09:01 Dose: 75 mg Divalproex Sodium (Divalproex Dr 125 Mg Tab) 125 mg PO TID [facility] Last Admin: 06/14/22 20:44 Dose: 125 mg Haloperidol Lactate (Haloperidol Lactate 5 Mg/1 Ml Inj) 5 mg IM Q6H PRN PRN Reason: Agitation Insulin Human Isoph/Insulin Regular (Insulin Nph/Regular 70/30 Inj) 15 unit SUB-Q BIDDIAB [facility] Last Admin: 06/14/22 17:02 Dose: 15 unit Insulin Human Lispro (Insulin Lispro 100 Unit/Ml) 0 unit SUB-Q [facility]; Protocol Last Admin: 06/15/22 07:48 Dose: Not Given Lisinopril (Lisinopril 20 Mg Tab) 20 mg PO DAILY [facility] Last Admin: 06/14/22 09:02 Dose: 20 mg Lorazepam (Lorazepam 2 Mg/Ml Vial) 2 mg IM Q6H PRN PRN Reason: Agitation Magnesium Oxide (Magnesium Oxide 400 Mg Tab) 400 mg PO QDAY [facility] Last Admin: 06/14/22 09:01 Dose: 400 mg Quetiapine Fumarate (Quetiapine 25 Mg Tab) 25 mg PO BID [facility] Last Admin: 06/14/22 21:26 Dose: 25 mg Trazodone HCl (Trazodone 50 Mg Tab) 50 mg PO QHS [facility] Last Admin: 06/14/22 21:26 Dose: 50 mg Results - Results Labs/Vitals: Laboratory Last Values WBC 8.0 K/mm3 (4.5-11.0) 06/05/22 19:50 RBC 4.24 M/mm3 (3.65-5.03) 06/05/22 19:50 Hgb 13.8 gm/dl (10.1-14.3) 06/05/22 19:50 Hct 37.7 % (30.3-42.9) 06/05/22 19:50 MCV 89 fl (79-97) 06/05/22 19:50 MCH 32 pg (28-32) 06/05/22 19:50 MCHC 37 % (30-34) H 06/05/22 19:50 RDW 13.9 % (13.2-15.2) 06/05/22 19:50 Plt Count 201 K/mm3 (140-440) 06/05/22 19:50 Lymph % (Auto) 30.5 % (13.4-35.0) 06/05/22 19:50 [place] % (Auto) 8.5 % (0.0-7.3) H 06/05/22 19:50 Eos % (Auto) 4.5 % (0.0-4.3) H 06/05/22 19:50 Baso % (Auto) 0.6 % (0.0-1.8) 06/05/22 19:50 Lymph # (Auto) 2.4 K/mm3 (1.2-5.4) 06/05/22 19:50 [place] # (Auto) 0.7 K/mm3 (0.0-0.8) 06/05/22 19:50 Eos # (Auto) 0.4 K/mm3 (0.0-0.4) 06/05/22 19:50 Baso # (Auto) 0.0 K/mm3 (0.0-0.1) 06/05/22 19:50 Seg Neutrophils % 55.9 % (40.0-70.0) 06/05/22 19:50 Seg Neutrophils # 4.5 K/mm3 (1.8-7.7) 06/05/22 19:50 Sodium 140 mmol/L (137-145) 06/06/22 04:59 Potassium 4.1 mmol/L (3.6-5.0) 06/06/22 04:59 Chloride 104.8 mmol/L (98-107) 06/06/22 04:59 Carbon Dioxide 24 mmol/L (22-30) 06/06/22 04:59 Anion Gap 15 mmol/L 06/06/22 04:59 BUN 19 mg/dL (7-17) H 06/06/22 04:59 Creatinine 0.7 mg/dL (0.6-1.2) 06/06/22 04:59 Estimated GFR > 60 ml/min 06/06/22 04:59 BUN/Creatinine Ratio 27 % 06/06/22 04:59 Glucose 233 mg/dL (65-100) H 06/06/22 04:59 POC Glucose 132 mg/dL (70-105) H 06/15/22 06:15 Hemoglobin A1c 7.0 % (4-6) H 06/06/22 04:59 Calcium 9.2 mg/dL (8.4-10.2) 06/06/22 04:59 Magnesium 1.60 mg/dL (1.7-2.3) L 06/06/22 04:59 Total Bilirubin 0.30 mg/dL (0.1-1.2) 06/05/22 13:17 AST 22 units/L (5-40) 06/05/22 13:17 ALT 22 units/L (7-56) 06/05/22 13:17 Alkaline Phosphatase 131 units/L (35-129) H 06/05/22 13:17 Total Protein 6.9 g/dL (6.3-8.2) 06/05/22 13:17 Albumin 4.0 g/dL (3.9-5) 06/05/22 13:17 Albumin/Globulin Ratio 1.4 % 06/05/22 13:17 Triglycerides 110 mg/dL (2-149) 06/05/22 13:17 Cholesterol 145 mg/dL (50-199) 06/05/22 13:17 LDL Cholesterol Direct 63 mg/dL (50-130) 06/05/22 13:17 HDL Cholesterol 73 mg/dL (40-59) H 06/05/22 13:17 Cholesterol/HDL Ratio 1.98 % 06/05/22 13:17 TSH 1.290 mlU/mL (0.270-4.200) 06/05/22 13:17 Last Vital Signs Temp 98.0 F 06/15/22 08:34 Pulse 86 06/15/22 08:34 Resp 16 06/15/22 08:34 BP 143/92 06/15/22 08:34 Pulse Ox 97 06/15/22 08:34
[2022-06-15] MEDS: LISINOPRIL 20 MG TAB PO SCH (09:28)
[2022-06-15] MEDS: CLOPIDOGREL 75 MG TAB PO SCH (09:29)
[2022-06-15] MEDS: QUEtiapine 25 MG TAB PO SCH ×2 (09:29→21:31)
[2022-06-15] MEDS: MAGNESIUM OXIDE 400 MG TAB PO SCH (09:29)
[2022-06-15] MEDS: DIVALPROEX DR 125 MG TAB PO SCH ×3 (09:29→20:13)
[2022-06-15] MEDS: CHOLECALCIFEROL (VIT D3) 1000 UNIT (25 mcg) TAB PO SCH (09:29)
[2022-06-15] MEDS: INSULIN NPH/REGULAR 70/30 INJ SUB-Q SCH ×2 (09:30→17:19)
[2022-06-15] MEDS: traZODone 50 MG TAB PO SCH (21:31)
[2022-06-16] MEDS: INSULIN LISPRO 100 UNIT/ML SUB-Q SCH ×4 (07:55→21:29)
--- NOTE | 2022-06-16 09:01 | Progress Note ---
Subjective Date of service: 06/16/22 Principal diagnosis: Unspecified Mood Disorder Subjective Comment: 06/16:The patient was seen resting in bed " I'll be better if everybody will let me sleep." She reports sleep was poor last night. The patient denies depression. She denies any current suicidal /homicidal ideation and denies hallucinations. Start Depakote DR 250mg po BID 06/15: The patient was seen today. The patient states she is doing well " I'm breathing, I just want to go home." She endorses depression, rates as 2/10. She denies SI/HI or hallucinations. She is awaiting placement. 06/14:The patient was seen today. She is focused on discharge; she denies depression. She reports mood as good. She denies SI/HI or hallucinations. She is awaiting placement. 06/13 The patient was seen today. She says she slept good. She denies SI/HI or hallucinations. She is awaiting placement. 06/12 The patient was seen today. She is calm and cooperative. She denies SI/HI or hallucinations. The patient is awaiting placement to ensure safety and continuity of mental wellness upon discharge. 06/11 The patient was seen today. She says she's ready to go home. She denies SI/HI or hallucinations of any kind. Staff notes that patient has been restless, threatening and demanding. 06/10 The patient was seen today. She is lying in bed asleep. She easily arouses. She says she feels good but is tired. The patient denies SI/HI or hallucinations. 06/09 The patient was seen today. She is calm and cooperative. She denies SI/HI and hallucinations. The patient will discharge tomorrow if no events overnight, once outpatient resources are in place to ensure continuity of mental wellness. 06/08 The patient was seen today. She is in bed sleeping. She easily arouses. She says she's "tired, but good." The patient denies any SI/HI or hallucinations of any kind. 06/07 The patient was seen today. She is forgetful, and appears delusional at times. She doesn't remember why she was admitted into the hospital. She says she is upset. She is asking about going home. The patient denies SI, but states "I'm homicidal against the person who put me here. I want to get a stick and whoop the sh*t out of them." She says "I woke up and I was here." She denies hallucinations. The patient later asked me "do I know you? Are you waiting to see me" while I was going to see another patient. REVIEW OF SYSTEMS Constitutional: Negative for weight loss ENT: Negative for stridor Respiratory: Negative for cough or hemoptysis All other systems reviewed and are negative MENTAL STATUS EXAMINATION General Appearance and Behavior: Age appropriate, wearing appropriate clothes, cooperative, polite with questioning, good eye contact Cooperation: cooperative Psychomotor Behavior: Psychomotor normal Mood: ok Affect and affective range: congruent with stated affect Thought Process: Goal directed Thought Content: reality oriented Speech: Normal volume, Regular rate and rhythm Suicidal Ideation: Denies Homicidal Ideation: Denies Hallucination: Denies Delusions: None elicited Impulse Control: Limited Insight and Judgment: Limited Memory: forgetful Attention: attentive Orientation: Alert and oriented Assessment Unspecified mood disorder Treatment Plan Patient will be admitted for inpatient psychiatric evaluation, medication adjustment and close monitoring The patient's behavior, mood, sleep and appetite will be closely monitored. Patient will be enrolled in individual and group therapeutic sessions and encouraged to attend. Patient will be provided with a safe and structured environment. Patient's physical health needs will be addressed by the Hospitalist. Hospitalist Consulted Labs including CBC, CMP, Lipid profile and Hemoglobin A1C ordered Social Assessment will be completed and the Sprayer Leather will work with patient and family to ensure a suitable and safe disposition Medication adjustment will be made as clinically indicated Start Depakote DR 250mg po BID Usual Wellness Faith/Preservation: - Start Trazodone 50 mg po QHS PRN The patient agreed on the treatment plan, understood the risk, benefit, alternative treatment, potential consequence of no treatment, and gave informed consent. Case staffed with Dr. Mendez Medications and Allergies Medications and Allergies Allergies Allergy/AdvReac Type Severity Reaction Status Date / Time No Known Allergies Allergy Unverified 06/04/22 18:07 Home Medications Medication Instructions Recorded Confirmed Last Taken Type Atorvastatin [Lipitor Tab] 80 mg PO HS 06/04/22 06/04/22 Unknown History Cholecalciferol Vit D3 [Vitamin D3 2,000 1000units PO DAILY 06/04/22 06/04/22 Unknown History 1,000 UNIT TAB] Clopidogrel [Plavix] 75 mg PO QDAY 06/04/22 06/04/22 Unknown History Insulin Glargine [Lantus VIAL] 20 unit SUB-Q QHS 06/04/22 06/04/22 Unknown History Lispro Insulin [HumaLOG] 5 unit SQ HS 06/04/22 06/04/22 Unknown History QUEtiapine [SEROquel] 25 mg PO BID 06/04/22 06/04/22 Unknown History lisinopriL [Lisinopril] 20 mg PO DAILY 06/04/22 06/04/22 Unknown History Active Meds: Active Medications Cholecalciferol (Cholecalciferol (Vit D3) 1000 Unit (25 Mcg) Tab) 1,000 unit PO DAILY [facility] Last Admin: 06/15/22 09:29 Dose: 1,000 unit Clopidogrel Bisulfate (Clopidogrel 75 Mg Tab) 75 mg PO QDAY [facility] Last Admin: 06/15/22 09:29 Dose: 75 mg Divalproex Sodium (Divalproex Dr 125 Mg Tab) 125 mg PO TID [facility] Last Admin: 06/15/22 20:13 Dose: 125 mg Haloperidol Lactate (Haloperidol Lactate 5 Mg/1 Ml Inj) 5 mg IM Q6H PRN PRN Reason: Agitation Insulin Human Isoph/Insulin Regular (Insulin Nph/Regular 70/30 Inj) 15 unit SUB-Q BIDDIAB [facility] Last Admin: 06/15/22 17:19 Dose: 15 unit Insulin Human Lispro (Insulin Lispro 100 Unit/Ml) 0 unit SUB-Q [facility]; Protocol Last Admin: 06/16/22 07:55 Dose: Not Given Lisinopril (Lisinopril 20 Mg Tab) 20 mg PO DAILY [facility] Last Admin: 06/15/22 09:28 Dose: 20 mg Lorazepam (Lorazepam 2 Mg/Ml Vial) 2 mg IM Q6H PRN PRN Reason: Agitation Magnesium Oxide (Magnesium Oxide 400 Mg Tab) 400 mg PO QDAY [facility] Last Admin: 06/15/22 09:29 Dose: 400 mg Quetiapine Fumarate (Quetiapine 25 Mg Tab) 25 mg PO BID [facility] Last Admin: 06/15/22 21:31 Dose: 25 mg Trazodone HCl (Trazodone 50 Mg Tab) 50 mg PO QHS [facility] Last Admin: 06/15/22 21:31 Dose: 50 mg Results - Results Labs/Vitals: Laboratory Last Values WBC 8.0 K/mm3 (4.5-11.0) 06/05/22 19:50 RBC 4.24 M/mm3 (3.65-5.03) 06/05/22 19:50 Hgb 13.8 gm/dl (10.1-14.3) 06/05/22 19:50 Hct 37.7 % (30.3-42.9) 06/05/22 19:50 MCV 89 fl (79-97) 06/05/22 19:50 MCH 32 pg (28-32) 06/05/22 19:50 MCHC 37 % (30-34) H 06/05/22 19:50 RDW 13.9 % (13.2-15.2) 06/05/22 19:50 Plt Count 201 K/mm3 (140-440) 06/05/22 19:50 Lymph % (Auto) 30.5 % (13.4-35.0) 06/05/22 19:50 [place] % (Auto) 8.5 % (0.0-7.3) H 06/05/22 19:50 Eos % (Auto) 4.5 % (0.0-4.3) H 06/05/22 19:50 Baso % (Auto) 0.6 % (0.0-1.8) 06/05/22 19:50 Lymph # (Auto) 2.4 K/mm3 (1.2-5.4) 06/05/22 19:50 [place] # (Auto) 0.7 K/mm3 (0.0-0.8) 06/05/22 19:50 Eos # (Auto) 0.4 K/mm3 (0.0-0.4) 06/05/22 19:50 Baso # (Auto) 0.0 K/mm3 (0.0-0.1) 06/05/22 19:50 Seg Neutrophils % 55.9 % (40.0-70.0) 06/05/22 19:50 Seg Neutrophils # 4.5 K/mm3 (1.8-7.7) 06/05/22 19:50 Sodium 140 mmol/L (137-145) 06/06/22 04:59 Potassium 4.1 mmol/L (3.6-5.0) 06/06/22 04:59 Chloride 104.8 mmol/L (98-107) 06/06/22 04:59 Carbon Dioxide 24 mmol/L (22-30) 06/06/22 04:59 Anion Gap 15 mmol/L 06/06/22 04:59 BUN 19 mg/dL (7-17) H 06/06/22 04:59 Creatinine 0.7 mg/dL (0.6-1.2) 06/06/22 04:59 Estimated GFR > 60 ml/min 06/06/22 04:59 BUN/Creatinine Ratio 27 % 06/06/22 04:59 Glucose 233 mg/dL (65-100) H 06/06/22 04:59 POC Glucose 131 mg/dL (70-105) H 06/16/22 05:50 Hemoglobin A1c 7.0 % (4-6) H 06/06/22 04:59 Calcium 9.2 mg/dL (8.4-10.2) 06/06/22 04:59 Magnesium 1.60 mg/dL (1.7-2.3) L 06/06/22 04:59 Total Bilirubin 0.30 mg/dL (0.1-1.2) 06/05/22 13:17 AST 22 units/L (5-40) 06/05/22 13:17 ALT 22 units/L (7-56) 06/05/22 13:17 Alkaline Phosphatase 131 units/L (35-129) H 06/05/22 13:17 Total Protein 6.9 g/dL (6.3-8.2) 06/05/22 13:17 Albumin 4.0 g/dL (3.9-5) 06/05/22 13:17 Albumin/Globulin Ratio 1.4 % 06/05/22 13:17 Triglycerides 110 mg/dL (2-149) 06/05/22 13:17 Cholesterol 145 mg/dL (50-199) 06/05/22 13:17 LDL Cholesterol Direct 63 mg/dL (50-130) 06/05/22 13:17 HDL Cholesterol 73 mg/dL (40-59) H 06/05/22 13:17 Cholesterol/HDL Ratio 1.98 % 06/05/22 13:17 TSH 1.290 mlU/mL (0.270-4.200) 06/05/22 13:17 Last Vital Signs Temp 97.5 F L 06/16/22 08:27 Pulse 81 06/16/22 08:27 Resp 16 06/16/22 08:27 BP 129/80 06/16/22 08:27 Pulse Ox 95 06/16/22 08:27
[2022-06-16] MEDS: DIVALPROEX DR 125 MG TAB PO SCH (09:09)
[2022-06-16] MEDS: INSULIN NPH/REGULAR 70/30 INJ SUB-Q SCH ×2 (09:44→16:52)
[2022-06-16] MEDS: LISINOPRIL 20 MG TAB PO SCH (10:05)
[2022-06-16] MEDS: CHOLECALCIFEROL (VIT D3) 1000 UNIT (25 mcg) TAB PO SCH (10:05)
[2022-06-16] MEDS: MAGNESIUM OXIDE 400 MG TAB PO SCH (10:05)
[2022-06-16] MEDS: DIVALPROEX DR 250 MG TAB PO SCH ×2 (10:05→21:29)
[2022-06-16] MEDS: CLOPIDOGREL 75 MG TAB PO SCH (10:05)
[2022-06-16] MEDS: QUEtiapine 25 MG TAB PO SCH ×2 (10:06→21:29)
--- NOTE | 2022-06-16 14:20 | Progress Note ---
Assessment and Plan - Patient Problems (1) Generalized anxiety disorder Current Visit: Yes Status: Acute Plan to address problem: Benzodiazepine therapy as clinically indicated, cognitive behavioral therapy, (2) Major depression Current Visit: Yes Status: Acute Plan to address problem: Continue medical management, supportive care. (3) Vascular dementia with behavioral disturbance Current Visit: Yes Status: Acute Plan to address problem: Verbal prompting, verbal redirection, benzodiazepine therapy as clinically indicated (4) Cerebral atherosclerosis Current Visit: Yes Status: Acute Plan to address problem: Risk factor reduction, antiplatelet therapy as clinically indicated. (5) Diabetes Current Visit: Yes Status: Acute Plan to address problem: Consistent carbohydrate diet, Accu-Chek, insulin protocol. Hypoglycemia protocol (6) Hypertension Current Visit: Yes Status: Acute Qualifiers: Hypertension type: primary hypertension Qualified Code(s): I10 - Essential (primary) hypertension Plan to address problem: Monitor blood pressure every shift (7) Hyperlipidemia Current Visit: Yes Status: Acute Plan to address problem: Statin therapy, low-cholesterol diet. (8) Obesity Current Visit: Yes Status: Acute Plan to address problem: Balanced diet, increase physical activity discharge. (9) Advance care planning Current Visit: Yes Status: Acute Plan to address problem: Disease education data, care plan discussed, diagnosis discussed, prognosis discussed, +30 minutes. (10) Preventative health care Current Visit: Yes Status: Acute Plan to address problem: Patient counseled regarding balanced diet, risk factor reduction, outpatient follow-up with primary care physician for all age and risk factor appropriate screening test. +30 minutes. History Interval history: 61 YO Female with Vascular Dementia with behavioral disturbance, Cerebral Atherosclerosis, HTN, HLD, CVA admitted to [facility] for psychiatric stabilization. Patient seen and evaluated in the recreation room. Patient appears to be at baseline level of cognition and function. No reported nursing events. Hospitalist Physical - Constitutional Vitals: Temp Pulse Resp BP Pulse Ox 97.5 F L 81 16 129/80 95 06/16/22 08:27 06/16/22 10:05 06/16/22 08:27 06/16/22 10:05 06/16/22 08:27 General appearance: Present: no acute distress, well-nourished, obese - EENT Eyes: Present: PERRL, EOM intact ENT: hearing intact - Neck Neck: Present: supple - Respiratory Respiratory effort: normal Respiratory: bilateral: CTA - Cardiovascular Rhythm: regular Heart Sounds: Present: S1 & S2 - Extremities Extremities: no ischemia Peripheral Pulses: within normal limits - Abdominal General gastrointestinal: soft, non-tender, non-distended - Integumentary Integumentary: Present: clear, dry - Psychiatric Psychiatric: cooperative - Neurologic Neurologic: CNII-XII intact Results - Labs CBC & Chem 7: 06/05/22 19:50 06/06/22 04:59 Labs: Laboratory Last Values WBC 8.0 K/mm3 (4.5-11.0) 06/05/22 19:50 RBC 4.24 M/mm3 (3.65-5.03) 06/05/22 19:50 Hgb 13.8 gm/dl (10.1-14.3) 06/05/22 19:50 Hct 37.7 % (30.3-42.9) 06/05/22 19:50 MCV 89 fl (79-97) 06/05/22 19:50 MCH 32 pg (28-32) 06/05/22 19:50 MCHC 37 % (30-34) H 06/05/22 19:50 RDW 13.9 % (13.2-15.2) 06/05/22 19:50 Plt Count 201 K/mm3 (140-440) 06/05/22 19:50 Lymph % (Auto) 30.5 % (13.4-35.0) 06/05/22 19:50 [place] % (Auto) 8.5 % (0.0-7.3) H 06/05/22 19:50 Eos % (Auto) 4.5 % (0.0-4.3) H 06/05/22 19:50 Baso % (Auto) 0.6 % (0.0-1.8) 06/05/22 19:50 Lymph # (Auto) 2.4 K/mm3 (1.2-5.4) 06/05/22 19:50 [place] # (Auto) 0.7 K/mm3 (0.0-0.8) 06/05/22 19:50 Eos # (Auto) 0.4 K/mm3 (0.0-0.4) 06/05/22 19:50 Baso # (Auto) 0.0 K/mm3 (0.0-0.1) 06/05/22 19:50 Seg Neutrophils % 55.9 % (40.0-70.0) 06/05/22 19:50 Seg Neutrophils # 4.5 K/mm3 (1.8-7.7) 06/05/22 19:50 Sodium 140 mmol/L (137-145) 06/06/22 04:59 Potassium 4.1 mmol/L (3.6-5.0) 06/06/22 04:59 Chloride 104.8 mmol/L (98-107) 06/06/22 04:59 Carbon Dioxide 24 mmol/L (22-30) 06/06/22 04:59 Anion Gap 15 mmol/L 06/06/22 04:59 BUN 19 mg/dL (7-17) H 06/06/22 04:59 Creatinine 0.7 mg/dL (0.6-1.2) 06/06/22 04:59 Estimated GFR > 60 ml/min 06/06/22 04:59 BUN/Creatinine Ratio 27 % 06/06/22 04:59 Glucose 233 mg/dL (65-100) H 06/06/22 04:59 POC Glucose 125 mg/dL (70-105) H 06/16/22 11:16 Hemoglobin A1c 7.0 % (4-6) H 06/06/22 04:59 Calcium 9.2 mg/dL (8.4-10.2) 06/06/22 04:59 Magnesium 1.60 mg/dL (1.7-2.3) L 06/06/22 04:59 Total Bilirubin 0.30 mg/dL (0.1-1.2) 06/05/22 13:17 AST 22 units/L (5-40) 06/05/22 13:17 ALT 22 units/L (7-56) 06/05/22 13:17 Alkaline Phosphatase 131 units/L (35-129) H 06/05/22 13:17 Total Protein 6.9 g/dL (6.3-8.2) 06/05/22 13:17 Albumin 4.0 g/dL (3.9-5) 06/05/22 13:17 Albumin/Globulin Ratio 1.4 % 06/05/22 13:17 Triglycerides 110 mg/dL (2-149) 06/05/22 13:17 Cholesterol 145 mg/dL (50-199) 06/05/22 13:17 LDL Cholesterol Direct 63 mg/dL (50-130) 06/05/22 13:17 HDL Cholesterol 73 mg/dL (40-59) H 06/05/22 13:17 Cholesterol/HDL Ratio 1.98 % 06/05/22 13:17 TSH 1.290 mlU/mL (0.270-4.200) 06/05/22 13:17 Lara/IV: Voiding Method Toilet Active Medications - Current Medications Current Medications: Generic Name Dose Route Start Last Admin Trade Name Freq PRN Reason Stop Dose Admin Cholecalciferol 1,000 unit 06/06/22 10:00 06/16/22 10:05 Cholecalciferol (Vit D3) 1000 Unit (25 Mcg) Tab PO 1,000 unit DAILY PORSHA Administration Clopidogrel Bisulfate 75 mg 06/06/22 10:00 06/16/22 10:05 Clopidogrel 75 Mg Tab PO 75 mg QDAY PORSHA Administration Divalproex Sodium 250 mg 06/16/22 10:00 06/16/22 10:[address] 250 Mg Tab PO 250 mg BID PORSHA Administration Haloperidol Lactate 5 mg 06/05/22 18:06 Haloperidol Lactate 5 Mg/1 Ml Inj IM Q6H PRN Agitation Insulin Human Isoph/Insulin Regular 15 unit 06/07/22 17:30 06/16/22 09:44 Insulin Nph/Regular 70/30 Inj SUB-Q 15 unit BIDDIAB PORSHA Administration Insulin Human Lispro 0 unit 06/05/22 22:00 06/16/22 11:32 Insulin Lispro 100 Unit/Ml SUB-Q Not Given [facility] Protocol Lisinopril 20 mg 06/06/22 10:00 06/16/22 10:05 Lisinopril 20 Mg Tab PO 20 mg DAILY PORSHA Administration Lorazepam 2 mg 06/05/22 18:07 Lorazepam 2 Mg/Ml Vial IM Q6H PRN Agitation Magnesium Oxide 400 mg 06/07/22 10:00 06/16/22 10:05 Magnesium Oxide 400 Mg Tab PO 400 mg QDAY PORSHA Administration Quetiapine Fumarate 25 mg 06/05/22 22:00 06/16/22 10:06 Quetiapine 25 Mg Tab PO 25 mg BID PORSHA Administration Trazodone HCl 50 mg 06/05/22 22:00 06/15/22 21:31 Trazodone 50 Mg Tab PO 50 mg QHS PORSHA Administration Nutrition/Malnutrition Assess - Dietary Evaluation Nutrition/Malnutrition Findings: Nutrition Notes Start: 06/12/22 14:57 Freq: Status: Active Protocol: Document 06/12/22 14:58 MATTEO (Rec: 06/12/22 15:12 MATTEO [id number]) Nutrition Notes Need for Assessment generated from: LOS Initial or Follow up Assessment Current Diagnosis Diabetes,Hypertension,Stroke, Hyperlipidemia Other Pertinent Diagnosis Dementia, Unspecified Mood Disorder. Current Diet Consistent Carbohydrates Diet (since B 06/06). Labs/Tests 06/12: N/A. Pertinent Medications 06/12: Humulin 70/30 15U, Humalog 3U, others nutritionally unremarkable. Height 5 ft 6 in Weight 87 kg [place] Body Weight (kg) 59.09 BMI 30.9 Intake Prior to Admission Good Weight change and time frame Pt denies having loss body weight [employer]. Weight Status Obese Subjective/Other Information RD consult for LOS assessment. Pt's PO intake of meals has been Good (100%) and well tolerated, according to ADL notes. Pt is on Room Air, O2 saturation @ 98%, according to Physical Assessment History notes. Percent of energy/protein needs met: Prescribed Consistent Carbohydrates Diet provides for energy/protein needs (2, 061 Kcal/91 g) during LOS. Burn Absent Trauma Absent GI Symptoms None Food Allergy No Skin Integrity/Comment Assessment WNL. Current % PO Good (75-100%) Minimum of two criteria No Fluid Accumulation N/A Reduced Senior Medical Director Strength N/A (non-severe) Protein-Calorie Malnutrition N\A #1 Nutrition Diagnosis No nutrition diagnosis at this time Is patient on ventilator? No Is Patient Ambulatory and/or Out of Bed Yes REE-([facility]-ambulatory/OOB) [ 1880.775 NUTR.[id number]] Kcal/Kg value to use for calculation 19 Approximate Energy Requirements Using 1653 kcal/Kg Calculation Used for Recommendations Kcal/kg Additional Notes Protein: 0.8-1 g/Kg AdjBW; 58- 73 g/day. Fluids: 1 ml/Kcal, or as per MD. Nutrition Intervention Change Diet Order: Continue Consistent Carbohydrates Diet as tolerated. Follow-Up By: 06/19/22 Additional Comments Continue monitoring food tolerance, %PO intake of meals , and BM.
[2022-06-16] MEDS: traZODone 50 MG TAB PO SCH (21:29)
--- NOTE | 2022-06-17 09:46 | Progress Note ---
Subjective Date of service: 06/17/22 Principal diagnosis: Unspecified Mood Disorder Subjective Comment: 06/17: The patient was seen today. She continues to be irritable and isolative. The patient denies depression. She denies any current suicidal /homicidal ideation and denies hallucinations. Increase Seroquel to 50mg po QHS. 06/16:The patient was seen resting in bed " I'll be better if everybody will let me sleep." She reports sleep was poor last night. The patient denies depression. She denies any current suicidal /homicidal ideation and denies hallucinations. Start Depakote DR 250mg po BID 06/15: The patient was seen today. The patient states she is doing well " I'm breathing, I just want to go home." She endorses depression, rates as 2/10. She denies SI/HI or hallucinations. She is awaiting placement. 06/14:The patient was seen today. She is focused on discharge; she denies depression. She reports mood as good. She denies SI/HI or hallucinations. She is awaiting placement. 06/13 The patient was seen today. She says she slept good. She denies SI/HI or hallucinations. She is awaiting placement. 06/12 The patient was seen today. She is calm and cooperative. She denies SI/HI or hallucinations. The patient is awaiting placement to ensure safety and continuity of mental wellness upon discharge. 06/11 The patient was seen today. She says she's ready to go home. She denies SI/HI or hallucinations of any kind. Staff notes that patient has been restless, threatening and demanding. 06/10 The patient was seen today. She is lying in bed asleep. She easily arouses. She says she feels good but is tired. The patient denies SI/HI or hallucinations. 06/09 The patient was seen today. She is calm and cooperative. She denies SI/HI and hallucinations. The patient will discharge tomorrow if no events overnight, once outpatient resources are in place to ensure continuity of mental wellness. 06/08 The patient was seen today. She is in bed sleeping. She easily arouses. She says she's "tired, but good." The patient denies any SI/HI or hallucinations of any kind. 06/07 The patient was seen today. She is forgetful, and appears delusional at times. She doesn't remember why she was admitted into the hospital. She says she is upset. She is asking about going home. The patient denies SI, but states "I'm homicidal against the person who put me here. I want to get a stick and whoop the sh*t out of them." She says "I woke up and I was here." She denies hallucinations. The patient later asked me "do I know you? Are you waiting to see me" while I was going to see another patient. REVIEW OF SYSTEMS Constitutional: Negative for weight loss ENT: Negative for stridor Respiratory: Negative for cough or hemoptysis All other systems reviewed and are negative MENTAL STATUS EXAMINATION General Appearance and Behavior: Age appropriate, wearing appropriate clothes, cooperative, polite with questioning, good eye contact Cooperation: cooperative Psychomotor Behavior: Psychomotor normal Mood: ok Affect and affective range: congruent with stated affect Thought Process: Goal directed Thought Content: reality oriented Speech: Normal volume, Regular rate and rhythm Suicidal Ideation: Denies Homicidal Ideation: Denies Hallucination: Denies Delusions: None elicited Impulse Control: Limited Insight and Judgment: Limited Memory: forgetful Attention: attentive Orientation: Alert and oriented Assessment Unspecified mood disorder Treatment Plan Patient will be admitted for inpatient psychiatric evaluation, medication ad justment and close monitoring The patient's behavior, mood, sleep and appetite will be closely monitored. Patient will be enrolled in individual and group therapeutic sessions and encouraged to attend. Patient will be provided with a safe and structured environment. Patient's physical health needs will be addressed by the Hospitalist. Hospitalist Consulted Labs including CBC, CMP, Lipid profile and Hemoglobin A1C ordered Social Assessment will be completed and the Client Relationship Consultant will work with patient and family to ensure a suitable and safe disposition Medication adjustment will be made as clinically indicated Start Depakote DR 250mg po BID Usual Wellness Zoroastrian/Preservation: - Start Trazodone 50 mg po QHS PRN The patient agreed on the treatment plan, understood the risk, benefit, alternative treatment, potential consequence of no treatment, and gave informed consent. Case staffed with Dr. Mendez Medications and Allergies Medications and Allergies Allergies Allergy/AdvReac Type Severity Reaction Status Date / Time No Known Allergies Allergy Unverified 06/04/22 18:07 Home Medications Medication Instructions Recorded Confirmed Last Taken Type Atorvastatin [Lipitor Tab] 80 mg PO HS 06/04/22 06/04/22 Unknown History Cholecalciferol Vit D3 [Vitamin D3 2,000 1000units PO DAILY 06/04/22 06/04/22 Unknown History 1,000 UNIT TAB] Clopidogrel [Plavix] 75 mg PO QDAY 06/04/22 06/04/22 Unknown History Insulin Glargine [Lantus VIAL] 20 unit SUB-Q QHS 06/04/22 06/04/22 Unknown History Lispro Insulin [HumaLOG] 5 unit SQ HS 06/04/22 06/04/22 Unknown History QUEtiapine [SEROquel] 25 mg PO BID 06/04/22 06/04/22 Unknown History lisinopriL [Lisinopril] 20 mg PO DAILY 06/04/22 06/04/22 Unknown History Active Meds: Active Medications Cholecalciferol (Cholecalciferol (Vit D3) 1000 Unit (25 Mcg) Tab) 1,000 unit PO DAILY [facility] Last Admin: 06/16/22 10:05 Dose: 1,000 unit Clopidogrel Bisulfate (Clopidogrel 75 Mg Tab) 75 mg PO QDAY [facility] Last Admin: 06/16/22 10:05 Dose: 75 mg Divalproex Sodium (Divalproex Dr 250 Mg Tab) 250 mg PO BID [facility] Last Admin: 06/16/22 21:29 Dose: 250 mg Haloperidol Lactate (Haloperidol Lactate 5 Mg/1 Ml Inj) 5 mg IM Q6H PRN PRN Reason: Agitation Insulin Human Isoph/Insulin Regular (Insulin Nph/Regular 70/30 Inj) 15 unit SUB-Q BIDDIAB [facility] Last Admin: 06/16/22 16:52 Dose: 15 unit Insulin Human Lispro (Insulin Lispro 100 Unit/Ml) 0 unit SUB-Q [facility]; Protocol Last Admin: 06/16/22 21:29 Dose: Not Given Lisinopril (Lisinopril 20 Mg Tab) 20 mg PO DAILY [facility] Last Admin: 06/16/22 10:05 Dose: 20 mg Lorazepam (Lorazepam 2 Mg/Ml Vial) 2 mg IM Q6H PRN PRN Reason: Agitation Magnesium Oxide (Magnesium Oxide 400 Mg Tab) 400 mg PO QDAY [facility] Last Admin: 06/16/22 10:05 Dose: 400 mg Quetiapine Fumarate (Quetiapine 25 Mg Tab) 25 mg PO BID [facility] Last Admin: 06/16/22 21:29 Dose: 25 mg Trazodone HCl (Trazodone 50 Mg Tab) 50 mg PO QHS [facility] Last Admin: 06/16/22 21:29 Dose: 50 mg Results - Results Labs/Vitals: Laboratory Last Values WBC 8.0 K/mm3 (4.5-11.0) 06/05/22 19:50 RBC 4.24 M/mm3 (3.65-5.03) 06/05/22 19:50 Hgb 13.8 gm/dl (10.1-14.3) 06/05/22 19:50 Hct 37.7 % (30.3-42.9) 06/05/22 19:50 MCV 89 fl (79-97) 06/05/22 19:50 MCH 32 pg (28-32) 06/05/22 19:50 MCHC 37 % (30-34) H 06/05/22 19:50 RDW 13.9 % (13.2-15.2) 06/05/22 19:50 Plt Count 201 K/mm3 (140-440) 06/05/22 19:50 Lymph % (Auto) 30.5 % (13.4-35.0) 06/05/22 19:50 [place] % (Auto) 8.5 % (0.0-7.3) H 06/05/22 19:50 Eos % (Auto) 4.5 % (0.0-4.3) H 06/05/22 19:50 Baso % (Auto) 0.6 % (0.0-1.8) 06/05/22 19:50 Lymph # (Auto) 2.4 K/mm3 (1.2-5.4) 06/05/22 19:50 [place] # (Auto) 0.7 K/mm3 (0.0-0.8) 06/05/22 19:50 Eos # (Auto) 0.4 K/mm3 (0.0-0.4) 06/05/22 19:50 Baso # (Auto) 0.0 K/mm3 (0.0-0.1) 06/05/22 19:50 Seg Neutrophils % 55.9 % (40.0-70.0) 06/05/22 19:50 Seg Neutrophils # 4.5 K/mm3 (1.8-7.7) 06/05/22 19:50 Sodium 140 mmol/L (137-145) 06/06/22 04:59 Potassium 4.1 mmol/L (3.6-5.0) 06/06/22 04:59 Chloride 104.8 mmol/L (98-107) 06/06/22 04:59 Carbon Dioxide 24 mmol/L (22-30) 06/06/22 04:59 Anion Gap 15 mmol/L 06/06/22 04:59 BUN 19 mg/dL (7-17) H 06/06/22 04:59 Creatinine 0.7 mg/dL (0.6-1.2) 06/06/22 04:59 Estimated GFR > 60 ml/min 06/06/22 04:59 BUN/Creatinine Ratio 27 % 06/06/22 04:59 Glucose 233 mg/dL (65-100) H 06/06/22 04:59 POC Glucose 131 mg/dL (70-105) H 06/16/22 20:05 Hemoglobin A1c 7.0 % (4-6) H 06/06/22 04:59 Calcium 9.2 mg/dL (8.4-10.2) 06/06/22 04:59 Magnesium 1.60 mg/dL (1.7-2.3) L 06/06/22 04:59 Total Bilirubin 0.30 mg/dL (0.1-1.2) 06/05/22 13:17 AST 22 units/L (5-40) 06/05/22 13:17 ALT 22 units/L (7-56) 06/05/22 13:17 Alkaline Phosphatase 131 units/L (35-129) H 06/05/22 13:17 Total Protein 6.9 g/dL (6.3-8.2) 06/05/22 13:17 Albumin 4.0 g/dL (3.9-5) 06/05/22 13:17 Albumin/Globulin Ratio 1.4 % 06/05/22 13:17 Triglycerides 110 mg/dL (2-149) 06/05/22 13:17 Cholesterol 145 mg/dL (50-199) 06/05/22 13:17 LDL Cholesterol Direct 63 mg/dL (50-130) 06/05/22 13:17 HDL Cholesterol 73 mg/dL (40-59) H 06/05/22 13:17 Cholesterol/HDL Ratio 1.98 % 06/05/22 13:17 TSH 1.290 mlU/mL (0.270-4.200) 06/05/22 13:17 Last Vital Signs Temp 97.5 F L 06/16/22 08:27 Pulse 81 06/16/22 10:05 Resp 16 06/16/22 08:27 BP 129/80 06/16/22 10:05 Pulse Ox 95 06/16/22 08:27
[2022-06-17] MEDS: LISINOPRIL 20 MG TAB PO SCH (10:37)
[2022-06-17] MEDS: MAGNESIUM OXIDE 400 MG TAB PO SCH (10:37)
[2022-06-17] MEDS: QUEtiapine 25 MG TAB PO SCH ×2 (10:37→21:35)
[2022-06-17] MEDS: CLOPIDOGREL 75 MG TAB PO SCH (10:37)
[2022-06-17] MEDS: DIVALPROEX DR 250 MG TAB PO SCH ×2 (10:37→21:35)
[2022-06-17] MEDS: CHOLECALCIFEROL (VIT D3) 1000 UNIT (25 mcg) TAB PO SCH (10:38)
[2022-06-17] MEDS: INSULIN NPH/REGULAR 70/30 INJ SUB-Q SCH ×2 (10:51→17:28)
[2022-06-17] MEDS: INSULIN LISPRO 100 UNIT/ML SUB-Q SCH ×4 (10:53→21:35)
--- NOTE | 2022-06-17 19:46 | Progress Note ---
Assessment and Plan Assessment and Plan - Patient Problems (1) Generalized anxiety disorder Current Visit: Yes Status: Acute Plan to address problem: Benzodiazepine therapy as clinically indicated, cognitive behavioral therapy, (2) Major depression Current Visit: Yes Status: Acute Plan to address problem: Continue medical management, supportive care. (3) Vascular dementia with behavioral disturbance Current Visit: Yes Status: Acute Plan to address problem: Verbal prompting, verbal redirection, benzodiazepine therapy as clinically indicated (4) Cerebral atherosclerosis Current Visit: Yes Status: Acute Plan to address problem: Risk factor reduction, antiplatelet therapy as clinically indicated. (5) Diabetes Current Visit: Yes Status: Acute Plan to address problem: Consistent carbohydrate diet, Accu-Chek, insulin protocol. Hypoglycemia protocol (6) Hypertension Current Visit: Yes Status: Acute Qualifiers: Hypertension type: primary hypertension Qualified Code(s): I10 - Essential (primary) hypertension Plan to address problem: Monitor blood pressure every shift (7) Hyperlipidemia Current Visit: Yes Status: Acute Plan to address problem: Statin therapy, low-cholesterol diet. (8) Obesity Current Visit: Yes Status: Acute Plan to address problem: Balanced diet, increase physical activity discharge. (9) Advance care planning Current Visit: Yes Status: Acute Plan to address problem: Disease education data, care plan discussed, diagnosis discussed, prognosis discussed, +30 minutes. (10) Preventative health care Current Visit: Yes Status: Acute Plan to address problem: Patient counseled regarding balanced diet, risk factor reduction, outpatient follow-up with primary care physician for all age and risk factor appropriate screening test. +30 minutes. Subjective Date of service: 06/17/22 Principal diagnosis: Unspecified Mood Disorder Interval history: History Interval history: 61 YO Female with Vascular Dementia with behavioral disturbance, Cerebral Atherosclerosis, HTN, HLD, CVA admitted to [facility] for psychiatric stabilization. Patient seen and evaluated in the recreation room. Patient appears to be at baseline level of cognition and function. No reported nursing events. Objective - Constitutional Vitals: Vital Signs - 12hr 06/17/22 10:37 Pulse Rate 85 Blood Pressure 143/74 General appearance: Present: no acute distress, well-nourished - EENT Eyes: PERRL, EOM intact ENT: hearing intact, clear oral mucosa Ears: bilateral: normal - Neck Neck: supple, normal ROM - Respiratory Respiratory effort: normal Respiratory: bilateral: CTA - Breasts Breasts: normal - Cardiovascular Heart rate: 78 Rhythm: regular Heart Sounds: Present: S1 & S2. Absent: gallop, rub Extremities: pulses intact, No edema, normal color, Full ROM - Gastrointestinal General gastrointestinal: Present: soft, non-tender, non-distended, normal bowel sounds - Genitourinary Female genitourinary: normal - Integumentary Integumentary: clear, warm, dry - Musculoskeletal Musculoskeletal: 1, strength equal bilaterally - Neurologic Neurologic: moves all extremities - Psychiatric Psychiatric: memory intact, appropriate mood/affect, intact judgment & insight - Labs CBC & Chem 7: 06/05/22 19:50 06/06/22 04:59 Labs: Abnormal lab results 06/16/22 06/17/22 06/17/22 Range/Units 20:05 11:25 16:43 POC Glucose 131 H 139 H 143 H (70-105) mg/dL
[2022-06-17] MEDS: traZODone 50 MG TAB PO SCH (21:35)
[2022-06-18] MEDS: INSULIN NPH/REGULAR 70/30 INJ SUB-Q SCH ×2 (08:09→18:01)
[2022-06-18] MEDS: INSULIN LISPRO 100 UNIT/ML SUB-Q SCH ×4 (08:10→21:49)
--- NOTE | 2022-06-18 09:32 | Progress Note ---
Subjective Date of service: 06/18/22 Principal diagnosis: Unspecified Mood Disorder Subjective Comment: 06/18:The patient was seen today. She reports states she is ready to go home and stay with my and dog. Reports depression as 5/10. She denies any current suicidal /homicidal ideation and denies hallucinations. 06/17: The patient was seen today. She continues to be irritable and isolative. The patient denies depression. She denies any current suicidal /homicidal ideation and denies hallucinations. Increase Seroquel to 50mg po QHS. 06/16:The patient was seen resting in bed " I'll be better if everybody will let me sleep." She reports sleep was poor last night. The patient denies depression. She denies any current suicidal /homicidal ideation and denies hallucinations. Start Depakote DR 250mg po BID 06/15: The patient was seen today. The patient states she is doing well " I'm breathing, I just want to go home." She endorses depression, rates as 2/10. She denies SI/HI or hallucinations. She is awaiting placement. 06/14:The patient was seen today. She is focused on discharge; she denies depression. She reports mood as good. She denies SI/HI or hallucinations. She is awaiting placement. 06/13 The patient was seen today. She says she slept good. She denies SI/HI or hallucinations. She is awaiting placement. 06/12 The patient was seen today. She is calm and cooperative. She denies SI/HI or hallucinations. The patient is awaiting placement to ensure safety and continuity of mental wellness upon discharge. 06/11 The patient was seen today. She says she's ready to go home. She denies SI/HI or hallucinations of any kind. Staff notes that patient has been restless, threatening and demanding. 06/10 The patient was seen today. She is lying in bed asleep. She easily arouses. She says she feels good but is tired. The patient denies SI/HI or hallucinations. 06/09 The patient was seen today. She is calm and cooperative. She denies SI/HI and hallucinations. The patient will discharge tomorrow if no events overnight, once outpatient resources are in place to ensure continuity of mental wellness. 06/08 The patient was seen today. She is in bed sleeping. She easily arouses. She says she's "tired, but good." The patient denies any SI/HI or hallucinations of any kind. 06/07 The patient was seen today. She is forgetful, and appears delusional at times. She doesn't remember why she was admitted into the hospital. She says she is upset. She is asking about going home. The patient denies SI, but states "I'm homicidal against the person who put me here. I want to get a stick and whoop the sh*t out of them." She says "I woke up and I was here." She denies hallucinations. The patient later asked me "do I know you? Are you waiting to see me" while I was going to see another patient. REVIEW OF SYSTEMS Constitutional: Negative for weight loss ENT: Negative for stridor Respiratory: Negative for cough or hemoptysis All other systems reviewed and are negative MENTAL STATUS EXAMINATION General Appearance and Behavior: Age appropriate, wearing appropriate clothes, cooperative, polite with questioning, good eye contact Cooperation: cooperative Psychomotor Behavior: Psychomotor normal Mood: ok Affect and affective range: congruent with stated affect Thought Process: Goal directed Thought Content: reality oriented Speech: Normal volume, Regular rate and rhythm Suicidal Ideation: Denies Homicidal Ideation: Denies Hallucination: Denies Delusions: None elicited Impulse Control: Limited Insight and Judgment: Limited Memory: forgetful Attention: attentive Orientation: Alert and oriented Assessment Unspecified mood disorder Treatment Plan Patient will be admitted for inpatient psychiatric evaluation, medication adjustment and close monitoring The patient's behavior, mood, sleep and appetite will be closely monitored. Patient will be enrolled in individual and group therapeutic sessions and encouraged to attend. Patient will be provided with a safe and structured environment. Patient's physical health needs will be addressed by the Hospitalist. Hospitalist Consulted Labs including CBC, CMP, Lipid profile and Hemoglobin A1C ordered Social Assessment will be completed and the Small Products Assembler will work with patient and family to ensure a suitable and safe disposition Medication adjustment will be made as clinically indicated Start Depakote DR 250mg po BID Usual Wellness Hinduism/Preservation: - Start Trazodone 50 mg po QHS PRN The patient agreed on the treatment plan, understood the risk, benefit, alternative treatment, potential consequence of no treatment, and gave informed consent. Case staffed with Dr. Andrea Medications and Allergies Medications and Allergies Allergies Allergy/AdvReac Type Severity Reaction Status Date / Time No Known Allergies Allergy Unverified 06/04/22 18:07 Home Medications Medication Instructions Recorded Confirmed Last Taken Type Atorvastatin [Lipitor Tab] 80 mg PO HS 06/04/22 06/04/22 Unknown History Cholecalciferol Vit D3 [Vitamin D3 2,000 1000units PO DAILY 06/04/22 06/04/22 Unknown History 1,000 UNIT TAB] Clopidogrel [Plavix] 75 mg PO QDAY 06/04/22 06/04/22 Unknown History Insulin Glargine [Lantus VIAL] 20 unit SUB-Q QHS 06/04/22 06/04/22 Unknown History Lispro Insulin [HumaLOG] 5 unit SQ 06/04/22 06/04/22 Unknown History QUEtiapine [SEROquel] 25 mg PO BID 06/04/22 06/04/22 Unknown History lisinopriL [Lisinopril] 20 mg PO DAILY 06/04/22 06/04/22 Unknown History Active Meds: Active Medications Cholecalciferol (Cholecalciferol (Vit D3) 1000 Unit (25 Mcg) Tab) 1,000 unit PO DAILY [facility] Last Admin: 06/17/22 10:38 Dose: 1,000 unit Clopidogrel Bisulfate (Clopidogrel 75 Mg Tab) 75 mg PO QDAY [facility] Last Admin: 06/17/22 10:37 Dose: 75 mg Divalproex Sodium (Divalproex Dr 250 Mg Tab) 250 mg PO BID [facility] Last Admin: 06/17/22 21:35 Dose: 250 mg Haloperidol Lactate (Haloperidol Lactate 5 Mg/1 Ml Inj) 5 mg IM Q6H PRN PRN Reason: Agitation Insulin Human Isoph/Insulin Regular (Insulin Nph/Regular 70/30 Inj) 15 unit SUB-Q BIDDIAB [facility] Last Admin: 06/18/22 08:09 Dose: 15 unit Insulin Human Lispro (Insulin Lispro 100 Unit/Ml) 0 unit SUB-Q [facility]; Protocol Last Admin: 06/18/22 08:10 Dose: Not Given Lisinopril (Lisinopril 20 Mg Tab) 20 mg PO DAILY [facility] Last Admin: 06/17/22 10:37 Dose: 20 mg Lorazepam (Lorazepam 2 Mg/Ml Vial) 2 mg IM Q6H PRN PRN Reason: Agitation Magnesium Oxide (Magnesium Oxide 400 Mg Tab) 400 mg PO QDAY [facility] Last Admin: 06/17/22 10:37 Dose: 400 mg Quetiapine Fumarate (Quetiapine 25 Mg Tab) 50 mg PO QHS [facility] Last Admin: 06/17/22 21:35 Dose: 50 mg Quetiapine Fumarate (Quetiapine 25 Mg Tab) 25 mg PO DAILY [facility] Trazodone HCl (Trazodone 50 Mg Tab) 50 mg PO QHS [facility] Last Admin: 06/17/22 21:35 Dose: 50 mg Results - Results Labs/Vitals: Laboratory Last Values WBC 8.0 K/mm3 (4.5-11.0) 06/05/22 19:50 RBC 4.24 M/mm3 (3.65-5.03) 06/05/22 19:50 Hgb 13.8 gm/dl (10.1-14.3) 06/05/22 19:50 Hct 37.7 % (30.3-42.9) 06/05/22 19:50 MCV 89 fl (79-97) 06/05/22 19:50 MCH 32 pg (28-32) 06/05/22 19:50 MCHC 37 % (30-34) H 06/05/22 19:50 RDW 13.9 % (13.2-15.2) 06/05/22 19:50 Plt Count 201 K/mm3 (140-440) 06/05/22 19:50 Lymph % (Auto) 30.5 % (13.4-35.0) 06/05/22 19:50 [place] % (Auto) 8.5 % (0.0-7.3) H 06/05/22 19:50 Eos % (Auto) 4.5 % (0.0-4.3) H 06/05/22 19:50 Baso % (Auto) 0.6 % (0.0-1.8) 06/05/22 19:50 Lymph # (Auto) 2.4 K/mm3 (1.2-5.4) 06/05/22 19:50 [place] # (Auto) 0.7 K/mm3 (0.0-0.8) 06/05/22 19:50 Eos # (Auto) 0.4 K/mm3 (0.0-0.4) 06/05/22 19:50 Baso # (Auto) 0.0 K/mm3 (0.0-0.1) 06/05/22 19:50 Seg Neutrophils % 55.9 % (40.0-70.0) 06/05/22 19:50 Seg Neutrophils # 4.5 K/mm3 (1.8-7.7) 06/05/22 19:50 Sodium 140 mmol/L (137-145) 06/06/22 04:59 Potassium 4.1 mmol/L (3.6-5.0) 06/06/22 04:59 Chloride 104.8 mmol/L (98-107) 06/06/22 04:59 Carbon Dioxide 24 mmol/L (22-30) 06/06/22 04:59 Anion Gap 15 mmol/L 06/06/22 04:59 BUN 19 mg/dL (7-17) H 06/06/22 04:59 Creatinine 0.7 mg/dL (0.6-1.2) 06/06/22 04:59 Estimated GFR > 60 ml/min 06/06/22 04:59 BUN/Creatinine Ratio 27 % 06/06/22 04:59 Glucose 233 mg/dL (65-100) H 06/06/22 04:59 POC Glucose 136 mg/dL (70-105) H 06/18/22 06:30 Hemoglobin A1c 7.0 % (4-6) H 06/06/22 04:59 Calcium 9.2 mg/dL (8.4-10.2) 06/06/22 04:59 Magnesium 1.60 mg/dL (1.7-2.3) L 06/06/22 04:59 Total Bilirubin 0.30 mg/dL (0.1-1.2) 06/05/22 13:17 AST 22 units/L (5-40) 06/05/22 13:17 ALT 22 units/L (7-56) 06/05/22 13:17 Alkaline Phosphatase 131 units/L (35-129) H 06/05/22 13:17 Total Protein 6.9 g/dL (6.3-8.2) 06/05/22 13:17 Albumin 4.0 g/dL (3.9-5) 06/05/22 13:17 Albumin/Globulin Ratio 1.4 % 06/05/22 13:17 Triglycerides 110 mg/dL (2-149) 06/05/22 13:17 Cholesterol 145 mg/dL (50-199) 06/05/22 13:17 LDL Cholesterol Direct 63 mg/dL (50-130) 06/05/22 13:17 HDL Cholesterol 73 mg/dL (40-59) H 06/05/22 13:17 Cholesterol/HDL Ratio 1.98 % 06/05/22 13:17 TSH 1.290 mlU/mL (0.270-4.200) 06/05/22 13:17 Last Vital Signs Temp 98.2 F 06/17/22 20:11 Pulse 96 H 06/17/22 20:11 Resp 18 06/17/22 20:11 BP 136/83 06/17/22 20:11 Pulse Ox 97 06/17/22 20:11
[2022-06-18] MEDS: DIVALPROEX DR 250 MG TAB PO SCH ×2 (10:06→21:36)
[2022-06-18] MEDS: QUEtiapine 25 MG TAB PO SCH ×2 (10:08→21:35)
[2022-06-18] MEDS: CHOLECALCIFEROL (VIT D3) 1000 UNIT (25 mcg) TAB PO SCH (10:08)
[2022-06-18] MEDS: CLOPIDOGREL 75 MG TAB PO SCH (10:08)
[2022-06-18] MEDS: MAGNESIUM OXIDE 400 MG TAB PO SCH (10:08)
[2022-06-18] MEDS: LISINOPRIL 20 MG TAB PO SCH (10:12)
[2022-06-18] MEDS: traZODone 50 MG TAB PO SCH (21:36)
--- NOTE | 2022-06-19 07:43 | Progress Note ---
Assessment and Plan Assessment and Plan - Patient Problems (1) Generalized anxiety disorder Current Visit: Yes Status: Acute Plan to address problem: Benzodiazepine therapy as clinically indicated, cognitive behavioral therapy, (2) Major depression Current Visit: Yes Status: Acute Plan to address problem: Continue medical management, supportive care. (3) Vascular dementia with behavioral disturbance Current Visit: Yes Status: Acute Plan to address problem: Verbal prompting, verbal redirection, benzodiazepine therapy as clinically indicated (4) Cerebral atherosclerosis Current Visit: Yes Status: Acute Plan to address problem: Risk factor reduction, antiplatelet therapy as clinically indicated. (5) Diabetes Current Visit: Yes Status: Acute Plan to address problem: Consistent carbohydrate diet, Accu-Chek, insulin protocol. Hypoglycemia protocol (6) Hypertension Current Visit: Yes Status: Acute Qualifiers: Hypertension type: primary hypertension Qualified Code(s): I10 - Essential (primary) hypertension Plan to address problem: Monitor blood pressure every shift (7) Hyperlipidemia Current Visit: Yes Status: Acute Plan to address problem: Statin therapy, low-cholesterol diet. (8) Obesity Current Visit: Yes Status: Acute Plan to address problem: Balanced diet, increase physical activity discharge. (9) Advance care planning Current Visit: Yes Status: Acute Plan to address problem: Disease education data, care plan discussed, diagnosis discussed, prognosis discussed, +30 minutes. (10) Preventative health care Current Visit: Yes Status: Acute Plan to address problem: Patient counseled regarding balanced diet, risk factor reduction, outpatient follow-up with primary care physician for all age and risk factor appropriate screening test. +30 minutes. Subjective Date of service: 06/18/22 Principal diagnosis: Unspecified Mood Disorder Interval history: History Interval history: 61 YO Female with Vascular Dementia with behavioral disturbance, Cerebral Atherosclerosis, HTN, HLD, CVA admitted to [facility] for psychiatric stabilization. Patient seen and evaluated in the recreation room. Patient appears to be at baseline level of cognition and function. No reported nursing events. Objective - Constitutional General appearance: Present: no acute distress, well-nourished - EENT Eyes: PERRL, EOM intact ENT: hearing intact, clear oral mucosa Ears: bilateral: normal - Neck Neck: supple, normal ROM - Respiratory Respiratory effort: normal Respiratory: bilateral: CTA - Breasts Breasts: normal - Cardiovascular Heart rate: 78 Rhythm: regular Heart Sounds: Present: S1 & S2. Absent: gallop, rub Extremities: pulses intact, No edema, normal color, Full ROM - Gastrointestinal General gastrointestinal: Present: soft, non-tender, non-distended, normal bowel sounds - Genitourinary Female genitourinary: normal - Integumentary Integumentary: clear, warm, dry - Musculoskeletal Musculoskeletal: 1, strength equal bilaterally - Neurologic Neurologic: moves all extremities - Psychiatric Psychiatric: memory intact, appropriate mood/affect, intact judgment & insight - Labs CBC & Chem 7: 06/05/22 19:50 06/06/22 04:59 Labs: Abnormal lab results 06/18/22 06/18/22 06/18/22 Range/Units 10:58 16:31 19:40 POC Glucose 172 H 107 H 167 H (70-105) mg/dL
[2022-06-19] MEDS: INSULIN LISPRO 100 UNIT/ML SUB-Q SCH ×4 (08:17→21:19)
--- NOTE | 2022-06-19 09:31 | Progress Note ---
Subjective Date of service: 06/19/22 Principal diagnosis: Unspecified Mood Disorder Subjective Comment: 06/19:The patient was seen today in her room. She is withdrawn and isolative. She states she feel like crap, rates depression as a 5/10. She reports sleeping well but still sleepy and also refusing breakfast. She denies any current suicidal/homicidal ideation and denies hallucinations. 06/18:The patient was seen today. She reports states she is ready to go home and stay with my and dog. Reports depression as 5/10. She denies any current suicidal /homicidal ideation and denies hallucinations. 06/17: The patient was seen today. She continues to be irritable and isolative. The patient denies depression. She denies any current suicidal /homicidal ideation and denies hallucinations. Increase Seroquel to 50mg po QHS. 06/16:The patient was seen resting in bed " I'll be better if everybody will let me sleep." She reports sleep was poor last night. The patient denies depression. She denies any current suicidal /homicidal ideation and denies hallucinations. Start Depakote DR 250mg po BID 06/15: The patient was seen today. The patient states she is doing well " I'm breathing, I just want to go home." She endorses depression, rates as 2/10. She denies SI/HI or hallucinations. She is awaiting placement. 06/14:The patient was seen today. She is focused on discharge; she denies depression. She reports mood as good. She denies SI/HI or hallucinations. She is awaiting placement. 06/13 The patient was seen today. She says she slept good. She denies SI/HI or hallucinations. She is awaiting placement. 06/12 The patient was seen today. She is calm and cooperative. She denies SI/HI or hallucinations. The patient is awaiting placement to ensure safety and continuity of mental wellness upon discharge. 06/11 The patient was seen today. She says she's ready to go home. She denies SI/HI or hallucinations of any kind. Staff notes that patient has been restless, threatening and demanding. 06/10 The patient was seen today. She is lying in bed asleep. She easily arouses. She says she feels good but is tired. The patient denies SI/HI or hallucinations. 06/09 The patient was seen today. She is calm and cooperative. She denies SI/HI and hallucinations. The patient will discharge tomorrow if no events overnight, once outpatient resources are in place to ensure continuity of mental wellness. 06/08 The patient was seen today. She is in bed sleeping. She easily arouses. She says she's "tired, but good." The patient denies any SI/HI or hallucinations of any kind. 06/07 The patient was seen today. She is forgetful, and appears delusional at times. She doesn't remember why she was admitted into the hospital. She says she is upset. She is asking about going home. The patient denies SI, but states "I'm homicidal against the person who put me here. I want to get a stick and whoop the sh*t out of them." She says "I woke up and I was here." She denies hallucinations. The patient later asked me "do I know you? Are you waiting to see me" while I was going to see another patient. REVIEW OF SYSTEMS Constitutional: Negative for weight loss ENT: Negative for stridor Respiratory: Negative for cough or hemoptysis All other systems reviewed and are negative MENTAL STATUS EXAMINATION General Appearance and Behavior: Age appropriate, wearing appropriate clothes, cooperative, polite with questioning, good eye contact Cooperation: cooperative Psychomotor Behavior: Psychomotor normal Mood: " feels like crap" Affect and affective range: congruent with stated affect Thought Process: Goal directed Thought Content: reality oriented Speech: Normal volume, Regular rate and rhythm Suicidal Ideation: Denies Homicidal Ideation: Denies Hallucination: Denies Delusions: None elicited Impulse Control: Limited Insight and Judgment: Limited Memory: forgetful Attention: attentive Orientation: Alert and oriented Assessment Unspecified mood disorder Treatment Plan Patient will be admitted for inpatient psychiatric evaluation, medication adjustment and close monitoring The patient's behavior, mood, sleep and appetite will be closely monitored. Patient will be enrolled in individual and group therapeutic sessions and encouraged to attend. Patient will be provided with a safe and structured environment. Patient's physical health needs will be addressed by the Hospitalist. Hospitalist Consulted Labs including CBC, CMP, Lipid profile and Hemoglobin A1C ordered Social Assessment will be completed and the Wholesale And Retail Merchant will work with patient and family to ensure a suitable and safe disposition Medication adjustment will be made as clinically indicated Start Depakote DR 250mg po BID Usual Wellness Quaker/Preservation: - Start Trazodone 50 mg po QHS PRN The patient agreed on the treatment plan, understood the risk, benefit, alternative treatment, potential consequence of no treatment, and gave informed consent. Case staffed with Dr. Mendez Medications and Allergies Medications and Allergies Allergies Allergy/AdvReac Type Severity Reaction Status Date / Time No Known Allergies Allergy Unverified 06/04/22 18:07 Home Medications Medication Instructions Recorded Confirmed Last Taken Type Atorvastatin [Lipitor Tab] 80 mg PO HS 06/04/22 06/04/22 Unknown History Cholecalciferol Vit D3 [Vitamin D3 2,000 1000units PO DAILY 06/04/22 06/04/22 Unknown History 1,000 UNIT TAB] Clopidogrel [Plavix] 75 mg PO QDAY 06/04/22 06/04/22 Unknown History Insulin Glargine [Lantus VIAL] 20 unit SUB-Q QHS 06/04/22 06/04/22 Unknown History Lispro Insulin [HumaLOG] 5 unit SQ 06/04/22 06/04/22 Unknown History QUEtiapine [SEROquel] 25 mg PO BID 06/04/22 06/04/22 Unknown History lisinopriL [Lisinopril] 20 mg PO DAILY 06/04/22 06/04/22 Unknown History Active Meds: Active Medications Cholecalciferol (Cholecalciferol (Vit D3) 1000 Unit (25 Mcg) Tab) 1,000 unit PO DAILY [facility] Last Admin: 06/18/22 10:08 Dose: 1,000 unit Clopidogrel Bisulfate (Clopidogrel 75 Mg Tab) 75 mg PO QDAY [facility] Last Admin: 06/18/22 10:08 Dose: 75 mg Divalproex Sodium (Divalproex Dr 250 Mg Tab) 250 mg PO BID [facility] Last Admin: 06/18/22 21:36 Dose: 250 mg Haloperidol Lactate (Haloperidol Lactate 5 Mg/1 Ml Inj) 5 mg IM Q6H PRN PRN Reason: Agitation Insulin Human Isoph/Insulin Regular (Insulin Nph/Regular 70/30 Inj) 15 unit SUB-Q BIDDIAB [facility] Last Admin: 06/18/22 18:01 Dose: 15 unit Insulin Human Lispro (Insulin Lispro 100 Unit/Ml) 0 unit SUB-Q [facility]; Protocol Last Admin: 06/19/22 08:17 Dose: Not Given Lisinopril (Lisinopril 20 Mg Tab) 20 mg PO DAILY [facility] Last Admin: 06/18/22 10:12 Dose: Not Given Lorazepam (Lorazepam 2 Mg/Ml Vial) 2 mg IM Q6H PRN PRN Reason: Agitation Magnesium Oxide (Magnesium Oxide 400 Mg Tab) 400 mg PO QDAY [facility] Last Admin: 06/18/22 10:08 Dose: 400 mg Quetiapine Fumarate (Quetiapine 25 Mg Tab) 50 mg PO QHS [facility] Last Admin: 06/18/22 21:35 Dose: 50 mg Quetiapine Fumarate (Quetiapine 25 Mg Tab) 25 mg PO DAILY [facility] Last Admin: 06/18/22 10:08 Dose: 25 mg Trazodone HCl (Trazodone 50 Mg Tab) 50 mg PO QHS [facility] Last Admin: 06/18/22 21:36 Dose: 50 mg Results - Results Labs/Vitals: Laboratory Last Values WBC 8.0 K/mm3 (4.5-11.0) 06/05/22 19:50 RBC 4.24 M/mm3 (3.65-5.03) 06/05/22 19:50 Hgb 13.8 gm/dl (10.1-14.3) 06/05/22 19:50 Hct 37.7 % (30.3-42.9) 06/05/22 19:50 MCV 89 fl (79-97) 06/05/22 19:50 MCH 32 pg (28-32) 06/05/22 19:50 MCHC 37 % (30-34) H 06/05/22 19:50 RDW 13.9 % (13.2-15.2) 06/05/22 19:50 Plt Count 201 K/mm3 (140-440) 06/05/22 19:50 Lymph % (Auto) 30.5 % (13.4-35.0) 06/05/22 19:50 [place] % (Auto) 8.5 % (0.0-7.3) H 06/05/22 19:50 Eos % (Auto) 4.5 % (0.0-4.3) H 06/05/22 19:50 Baso % (Auto) 0.6 % (0.0-1.8) 06/05/22 19:50 Lymph # (Auto) 2.4 K/mm3 (1.2-5.4) 06/05/22 19:50 [place] # (Auto) 0.7 K/mm3 (0.0-0.8) 06/05/22 19:50 Eos # (Auto) 0.4 K/mm3 (0.0-0.4) 06/05/22 19:50 Baso # (Auto) 0.0 K/mm3 (0.0-0.1) 06/05/22 19:50 Seg Neutrophils % 55.9 % (40.0-70.0) 06/05/22 19:50 Seg Neutrophils # 4.5 K/mm3 (1.8-7.7) 06/05/22 19:50 Sodium 140 mmol/L (137-145) 06/06/22 04:59 Potassium 4.1 mmol/L (3.6-5.0) 06/06/22 04:59 Chloride 104.8 mmol/L (98-107) 06/06/22 04:59 Carbon Dioxide 24 mmol/L (22-30) 06/06/22 04:59 Anion Gap 15 mmol/L 06/06/22 04:59 BUN 19 mg/dL (7-17) H 06/06/22 04:59 Creatinine 0.7 mg/dL (0.6-1.2) 06/06/22 04:59 Estimated GFR > 60 ml/min 06/06/22 04:59 BUN/Creatinine Ratio 27 % 06/06/22 04:59 Glucose 233 mg/dL (65-100) H 06/06/22 04:59 POC Glucose 167 mg/dL (70-105) H 06/18/22 19:40 Hemoglobin A1c 7.0 % (4-6) H 06/06/22 04:59 Calcium 9.2 mg/dL (8.4-10.2) 06/06/22 04:59 Magnesium 1.60 mg/dL (1.7-2.3) L 06/06/22 04:59 Total Bilirubin 0.30 mg/dL (0.1-1.2) 06/05/22 13:17 AST 22 units/L (5-40) 06/05/22 13:17 ALT 22 units/L (7-56) 06/05/22 13:17 Alkaline Phosphatase 131 units/L (35-129) H 06/05/22 13:17 Total Protein 6.9 g/dL (6.3-8.2) 06/05/22 13:17 Albumin 4.0 g/dL (3.9-5) 06/05/22 13:17 Albumin/Globulin Ratio 1.4 % 06/05/22 13:17 Triglycerides 110 mg/dL (2-149) 06/05/22 13:17 Cholesterol 145 mg/dL (50-199) 06/05/22 13:17 LDL Cholesterol Direct 63 mg/dL (50-130) 06/05/22 13:17 HDL Cholesterol 73 mg/dL (40-59) H 06/05/22 13:17 Cholesterol/HDL Ratio 1.98 % 06/05/22 13:17 TSH 1.290 mlU/mL (0.270-4.200) 06/05/22 13:17 Last Vital Signs Temp 99.3 F 06/18/22 19:19 Pulse 84 06/18/22 19:19 Resp 18 06/18/22 19:19 BP 135/74 06/18/22 19:19 Pulse Ox 98 06/18/22 19:19
[2022-06-19] MEDS: DIVALPROEX DR 250 MG TAB PO SCH (10:12)
[2022-06-19] MEDS: QUEtiapine 25 MG TAB PO SCH ×2 (10:12→21:20)
[2022-06-19] MEDS: CHOLECALCIFEROL (VIT D3) 1000 UNIT (25 mcg) TAB PO SCH (10:12)
[2022-06-19] MEDS: CLOPIDOGREL 75 MG TAB PO SCH (10:12)
[2022-06-19] MEDS: MAGNESIUM OXIDE 400 MG TAB PO SCH (10:12)
[2022-06-19] MEDS: INSULIN NPH/REGULAR 70/30 INJ SUB-Q SCH ×2 (10:13→17:12)
[2022-06-19] MEDS: LISINOPRIL 20 MG TAB PO SCH (10:18)
[2022-06-19] MEDS: DIVALPROEX DR 500 MG TAB PO SCH ×2 (12:02→21:20)
[2022-06-19] MEDS: SERTRALINE 25 MG TAB PO SCH (12:02)
[2022-06-19] MEDS: traZODone 50 MG TAB PO SCH (21:20)
[2022-06-20] MEDS: INSULIN LISPRO 100 UNIT/ML SUB-Q SCH (07:42)
[2022-06-20] MEDS: INSULIN NPH/REGULAR 70/30 INJ SUB-Q SCH (08:01)
--- NOTE | 2022-06-20 08:22 | Progress Note ---
Assessment and Plan Assessment and Plan - Patient Problems (1) Generalized anxiety disorder Current Visit: Yes Status: Acute Plan to address problem: Benzodiazepine therapy as clinically indicated, cognitive behavioral therapy, (2) Major depression Current Visit: Yes Status: Acute Plan to address problem: Continue medical management, supportive care. (3) Vascular dementia with behavioral disturbance Current Visit: Yes Status: Acute Plan to address problem: Verbal prompting, verbal redirection, benzodiazepine therapy as clinically indicated (4) Cerebral atherosclerosis Current Visit: Yes Status: Acute Plan to address problem: Risk factor reduction, antiplatelet therapy as clinically indicated. (5) Diabetes Current Visit: Yes Status: Acute Plan to address problem: Consistent carbohydrate diet, Accu-Chek, insulin protocol. Hypoglycemia protocol (6) Hypertension Current Visit: Yes Status: Acute Qualifiers: Hypertension type: primary hypertension Qualified Code(s): I10 - Essential (primary) hypertension Plan to address problem: Monitor blood pressure every shift (7) Hyperlipidemia Current Visit: Yes Status: Acute Plan to address problem: Statin therapy, low-cholesterol diet. (8) Obesity Current Visit: Yes Status: Acute Plan to address problem: Balanced diet, increase physical activity discharge. (9) Advance care planning Current Visit: Yes Status: Acute Plan to address problem: Disease education data, care plan discussed, diagnosis discussed, prognosis discussed, +30 minutes. (10) Preventative health care Current Visit: Yes Status: Acute Plan to address problem: Patient counseled regarding balanced diet, risk factor reduction, outpatient follow-up with primary care physician for all age and risk factor appropriate screening test. +30 minutes. Subjective Date of service: 06/19/22 Principal diagnosis: Unspecified Mood Disorder Interval history: History Interval history: 61 YO Female with Vascular Dementia with behavioral disturbance, Cerebral Atherosclerosis, HTN, HLD, CVA admitted to [facility] for psychiatric stabilization. Patient seen and evaluated in the recreation room. Patient appears to be at baseline level of cognition and function. No reported nursing events. Objective - Constitutional General appearance: Present: no acute distress, well-nourished - EENT Eyes: PERRL, EOM intact ENT: hearing intact, clear oral mucosa Ears: bilateral: normal - Neck Neck: supple, normal ROM - Respiratory Respiratory effort: normal Respiratory: bilateral: CTA - Breasts Breasts: normal - Cardiovascular Heart rate: 78 Rhythm: regular Heart Sounds: Present: S1 & S2. Absent: gallop, rub Extremities: pulses intact, No edema, normal color, Full ROM - Gastrointestinal General gastrointestinal: Present: soft, non-tender, non-distended, normal bowel sounds - Genitourinary Female genitourinary: normal - Integumentary Integumentary: clear, warm, dry - Musculoskeletal Musculoskeletal: 1, strength equal bilaterally - Neurologic Neurologic: moves all extremities - Psychiatric Psychiatric: memory intact, appropriate mood/affect, intact judgment & insight - Labs CBC & Chem 7: 06/05/22 19:50 06/06/22 04:59 Labs: Abnormal lab results 06/19/22 06/19/22 06/19/22 Range/Units 07:26 11:39 16:11 POC Glucose 125 H 142 H 137 H (70-105) mg/dL
--- NOTE | 2022-06-20 08:56 | Progress Note ---
Subjective Date of service: 06/20/22 Principal diagnosis: Unspecified Mood Disorder Subjective Comment: 06/20:The patient was seen today at breakfast. She states she is doing fine and would like to return to her room " I'm lost, I'm used to doing stuff." She continues to endorse depression, and rates as 4/10. She denies any current suicidal /homicidal ideation and denies hallucinations. No changes made today. 06/19:The patient was seen today in her room. She is withdrawn and isolative. She states she feel like crap, rates depression as a 5/10. She reports sleeping well but still sleepy and also refusing breakfast. She denies any current suicidal/homicidal ideation and denies hallucinations. 06/18:The patient was seen today. She reports states she is ready to go home and stay with my and dog. Reports depression as 5/10. She denies any current suicidal /homicidal ideation and denies hallucinations. 06/17: The patient was seen today. She continues to be irritable and isolative. The patient denies depression. She denies any current suicidal /homicidal ideation and denies hallucinations. Increase Seroquel to 50mg po QHS. 06/16:The patient was seen resting in bed " I'll be better if everybody will let me sleep." She reports sleep was poor last night. The patient denies depression. She denies any current suicidal /homicidal ideation and denies hallucinations. Start Depakote DR 250mg po BID 06/15: The patient was seen today. The patient states she is doing well " I'm breathing, I just want to go home." She endorses depression, rates as 2/10. She denies SI/HI or hallucinations. She is awaiting placement. 06/14:The patient was seen today. She is focused on discharge; she denies depression. She reports mood as good. She denies SI/HI or hallucinations. She is awaiting placement. 06/13 The patient was seen today. She says she slept good. She denies SI/HI or hallucinations. She is awaiting placement. 06/12 The patient was seen today. She is calm and cooperative. She denies SI/HI or hallucinations. The patient is awaiting placement to ensure safety and con tinuity of mental wellness upon discharge. 06/11 The patient was seen today. She says she's ready to go home. She denies SI/HI or hallucinations of any kind. Staff notes that patient has been restless, threatening and demanding. 06/10 The patient was seen today. She is lying in bed asleep. She easily arouses. She says she feels good but is tired. The patient denies SI/HI or hallucinations. 06/09 The patient was seen today. She is calm and cooperative. She denies SI/HI and hallucinations. The patient will discharge tomorrow if no events overnight, once outpatient resources are in place to ensure continuity of mental wellness. 06/08 The patient was seen today. She is in bed sleeping. She easily arouses. She says she's "tired, but good." The patient denies any SI/HI or hallucinations of any kind. 06/07 The patient was seen today. She is forgetful, and appears delusional at times. She doesn't remember why she was admitted into the hospital. She says she is upset. She is asking about going home. The patient denies SI, but states "I'm homicidal against the person who put me here. I want to get a stick and whoop the sh*t out of them." She says "I woke up and I was here." She denies hallucinations. The patient later asked me "do I know you? Are you waiting to see me" while I was going to see another patient. REVIEW OF SYSTEMS Constitutional: Negative for weight loss ENT: Negative for stridor Respiratory: Negative for cough or hemoptysis All other systems reviewed and are negative MENTAL STATUS EXAMINATION General Appearance and Behavior: Age appropriate, wearing appropriate clothes, cooperative, polite with questioning, good eye contact Cooperation: cooperative Psychomotor Behavior: Psychomotor normal Mood: " fine" Affect and affective range: congruent with stated affect Thought Process: Goal directed Thought Content: reality oriented Speech: Normal volume, Regular rate and rhythm Suicidal Ideation: Denies Homicidal Ideation: Denies Hallucination: Denies Delusions: None elicited Impulse Control: Limited Insight and Judgment: Limited Memory: forgetful Attention: attentive Orientation: Alert and oriented Assessment Unspecified mood disorder Treatment Plan Patient will be admitted for inpatient psychiatric evaluation, medication adjustment and close monitoring The patient's behavior, mood, sleep and appetite will be closely monitored. Patient will be enrolled in individual and group therapeutic sessions and encouraged to attend. Patient will be provided with a safe and structured environment. Patient's physical health needs will be addressed by the Hospitalist. Hospitalist Consulted Labs including CBC, CMP, Lipid profile and Hemoglobin A1C ordered Social Assessment will be completed and the Obstetrics Gynecology Md will work with patient and family to ensure a suitable and safe disposition Medication adjustment will be made as clinically indicated Start Depakote DR 250mg po BID Usual Wellness Mu-Ism/Preservation: - Start Trazodone 50 mg po QHS PRN The patient agreed on the treatment plan, understood the risk, benefit, alternative treatment, potential consequence of no treatment, and gave informed consent. Case staffed with Dr. Mendez Medications and Allergies Medications and Allergies Allergies Allergy/AdvReac Type Severity Reaction Status Date / Time No Known Allergies Allergy Unverified 06/04/22 18:07 Home Medications Medication Instructions Recorded Confirmed Last Taken Type Atorvastatin [Lipitor Tab] 80 mg PO HS 06/04/22 06/04/22 Unknown History Cholecalciferol Vit D3 [Vitamin D3 2,000 1000units PO DAILY 06/04/22 06/04/22 Unknown History 1,000 UNIT TAB] Clopidogrel [Plavix] 75 mg PO QDAY 06/04/22 06/04/22 Unknown History Insulin Glargine [Lantus VIAL] 20 unit SUB-Q QHS 06/04/22 06/04/22 Unknown History Lispro Insulin [HumaLOG] 5 unit SQ HS 06/04/22 06/04/22 Unknown History QUEtiapine [SEROquel] 25 mg PO BID 06/04/22 06/04/22 Unknown History lisinopriL [Lisinopril] 20 mg PO DAILY 06/04/22 06/04/22 Unknown History Active Meds: Active Medications Cholecalciferol (Cholecalciferol (Vit D3) 1000 Unit (25 Mcg) Tab) 1,000 unit PO DAILY [facility] Last Admin: 06/19/22 10:12 Dose: 1,000 unit Clopidogrel Bisulfate (Clopidogrel 75 Mg Tab) 75 mg PO QDAY [facility] Last Admin: 06/19/22 10:12 Dose: 75 mg Divalproex Sodium (Divalproex Dr 500 Mg Tab) 500 mg PO BID [facility] Last Admin: 06/19/22 21:20 Dose: 500 mg Haloperidol Lactate (Haloperidol Lactate 5 Mg/1 Ml Inj) 5 mg IM Q6H PRN PRN Reason: Agitation Insulin Human Isoph/Insulin Regular (Insulin Nph/Regular 70/30 Inj) 15 unit SUB-Q BIDDIAB [facility] Last Admin: 06/20/22 08:01 Dose: 15 unit Insulin Human Lispro (Insulin Lispro 100 Unit/Ml) 0 unit SUB-Q ACHS [facility]; Protocol Last Admin: 06/20/22 07:42 Dose: Not Given Lisinopril (Lisinopril 20 Mg Tab) 20 mg PO DAILY [facility] Last Admin: 06/19/22 10:18 Dose: 20 mg Lorazepam (Lorazepam 2 Mg/Ml Vial) 2 mg IM Q6H PRN PRN Reason: Agitation Magnesium Oxide (Magnesium Oxide 400 Mg Tab) 400 mg PO QDAY [facility] Last Admin: 06/19/22 10:12 Dose: 400 mg Quetiapine Fumarate (Quetiapine 25 Mg Tab) 50 mg PO QHS [facility] Last Admin: 06/19/22 21:20 Dose: 50 mg Quetiapine Fumarate (Quetiapine 25 Mg Tab) 25 mg PO DAILY [facility] Last Admin: 06/19/22 10:12 Dose: 25 mg Sertraline HCl (Sertraline 25 Mg Tab) 25 mg PO QDAY [facility] Last Admin: 06/19/22 12:02 Dose: 25 mg Trazodone HCl (Trazodone 50 Mg Tab) 50 mg PO QHS [facility] Last Admin: 06/19/22 21:20 Dose: 50 mg Results - Results Labs/Vitals: Laboratory Last Values WBC 8.0 K/mm3 (4.5-11.0) 06/05/22 19:50 RBC 4.24 M/mm3 (3.65-5.03) 06/05/22 19:50 Hgb 13.8 gm/dl (10.1-14.3) 06/05/22 19:50 Hct 37.7 % (30.3-42.9) 06/05/22 19:50 MCV 89 fl (79-97) 06/05/22 19:50 MCH 32 pg (28-32) 06/05/22 19:50 MCHC 37 % (30-34) H 06/05/22 19:50 RDW 13.9 % (13.2-15.2) 06/05/22 19:50 Plt Count 201 K/mm3 (140-440) 06/05/22 19:50 Lymph % (Auto) 30.5 % (13.4-35.0) 06/05/22 19:50 [place] % (Auto) 8.5 % (0.0-7.3) H 06/05/22 19:50 Eos % (Auto) 4.5 % (0.0-4.3) H 06/05/22 19:50 Baso % (Auto) 0.6 % (0.0-1.8) 06/05/22 19:50 Lymph # (Auto) 2.4 K/mm3 (1.2-5.4) 06/05/22 19:50 [place] # (Auto) 0.7 K/mm3 (0.0-0.8) 06/05/22 19:50 Eos # (Auto) 0.4 K/mm3 (0.0-0.4) 06/05/22 19:50 Baso # (Auto) 0.0 K/mm3 (0.0-0.1) 06/05/22 19:50 Seg Neutrophils % 55.9 % (40.0-70.0) 06/05/22 19:50 Seg Neutrophils # 4.5 K/mm3 (1.8-7.7) 06/05/22 19:50 Sodium 140 mmol/L (137-145) 06/06/22 04:59 Potassium 4.1 mmol/L (3.6-5.0) 06/06/22 04:59 Chloride 104.8 mmol/L (98-107) 06/06/22 04:59 Carbon Dioxide 24 mmol/L (22-30) 06/06/22 04:59 Anion Gap 15 mmol/L 06/06/22 04:59 BUN 19 mg/dL (7-17) H 06/06/22 04:59 Creatinine 0.7 mg/dL (0.6-1.2) 06/06/22 04:59 Estimated GFR > 60 ml/min 06/06/22 04:59 BUN/Creatinine Ratio 27 % 06/06/22 04:59 Glucose 233 mg/dL (65-100) H 06/06/22 04:59 POC Glucose 98 mg/dL (70-105) 06/20/22 06:18 Hemoglobin A1c 7.0 % (4-6) H 06/06/22 04:59 Calcium 9.2 mg/dL (8.4-10.2) 06/06/22 04:59 Magnesium 1.60 mg/dL (1.7-2.3) L 06/06/22 04:59 Total Bilirubin 0.30 mg/dL (0.1-1.2) 06/05/22 13:17 AST 22 units/L (5-40) 06/05/22 13:17 ALT 22 units/L (7-56) 06/05/22 13:17 Alkaline Phosphatase 131 units/L (35-129) H 06/05/22 13:17 Total Protein 6.9 g/dL (6.3-8.2) 06/05/22 13:17 Albumin 4.0 g/dL (3.9-5) 06/05/22 13:17 Albumin/Globulin Ratio 1.4 % 06/05/22 13:17 Triglycerides 110 mg/dL (2-149) 06/05/22 13:17 Cholesterol 145 mg/dL (50-199) 06/05/22 13:17 LDL Cholesterol Direct 63 mg/dL (50-130) 06/05/22 13:17 HDL Cholesterol 73 mg/dL (40-59) H 06/05/22 13:17 Cholesterol/HDL Ratio 1.98 % 06/05/22 13:17 TSH 1.290 mlU/mL (0.270-4.200) 06/05/22 13:17 Last Vital Signs Temp 98.2 F 06/19/22 19:22 Pulse 94 H 06/19/22 19:22 Resp 18 06/19/22 19:22 BP 131/76 06/19/22 19:22 Pulse Ox 97 06/19/22 19:22
[2022-06-20 08:58] VITALS: BP 148/97
[2022-06-20] MEDS: MAGNESIUM OXIDE 400 MG TAB PO SCH (09:13)
[2022-06-20] MEDS: CHOLECALCIFEROL (VIT D3) 1000 UNIT (25 mcg) TAB PO SCH (09:13)
[2022-06-20] MEDS: LISINOPRIL 20 MG TAB PO SCH (09:13)
[2022-06-20] MEDS: SERTRALINE 25 MG TAB PO SCH (09:13)
[2022-06-20] MEDS: DIVALPROEX DR 500 MG TAB PO SCH (09:13)
[2022-06-20] MEDS: CLOPIDOGREL 75 MG TAB PO SCH (09:13)
[2022-06-20] MEDS: QUEtiapine 25 MG TAB PO SCH (09:13)
--- NOTE | 2022-06-20 09:44 | Discharge Summary ---
Providers - Providers Date of Admission: 06/05/22 10:15 Date of discharge: 06/20/22 Attending physician: GERONIMO IRELAND MD 06/05/22 09:41 Consult to Physician [CONS] Routine Comment: Consulting Provider: FLORINA MYERS Physician Instructions: Reason For Exam: H&P and Medical Management Primary care physician: PROJECT SAFETY MANAGER Hospitalization Admitting Diagnosis: F06.32 - MOOD DISORD D/T PHYSIOL COND W MAJOR DEPRESSIVE- LIKE EPSD Condition: Stable Hospital course: The patient was provided inpatient psychiatric treatment with safe and supportive environment, group/individual therapy, psychiatric medication, medication adjustment, adverse effect monitor, medical evaluation, medical treatment, social service assessment, social support meeting, placement assessment and psycho-education. The patients mood, cognition, behavior, motivation, compliance to treatment and appreciation on family/social support are improved and stabilized. At the time of discharge, the patient had no suicidal ideas, no homicidal ideas, no aggressive thoughts, no endangering behavior and no debilitating adverse effects. The patient agreed on the treatment plan, understood the risk, benefit, alternative treatment, potential consequence of no treatment, and gave informed consent. Progress note: 06/20:The patient was seen today at breakfast. She states she is doing fine and would like to return to her room " I'm lost, I'm used to doing stuff." She continues to endorse depression, and rates as 4/10. She denies any current suicidal /homicidal ideation and denies hallucinations. No changes made today. 06/19:The patient was seen today in her room. She is withdrawn and isolative. She states she feel like crap, rates depression as a 5/10. She reports sleeping well but still sleepy and also refusing breakfast. She denies any current suicidal/homicidal ideation and denies hallucinations. 06/18:The patient was seen today. She reports states she is ready to go home and stay with my and dog. Reports depression as 5/10. She denies any current suicidal /homicidal ideation and denies hallucinations. 06/17: The patient was seen today. She continues to be irritable and isolative. The patient denies depression. She denies any current suicidal /homicidal ideation and denies hallucinations. Increase Seroquel to 50mg po QHS. 06/16:The patient was seen resting in bed " I'll be better if everybody will let me sleep." She reports sleep was poor last night. The patient denies depression. She denies any current suicidal /homicidal ideation and denies hallucinations. Start Depakote DR 250mg po BID 06/15: The patient was seen today. The patient states she is doing well " I'm breathing, I just want to go home." She endorses depression, rates as 2/10. She denies SI/HI or hallucinations. She is awaiting placement. 06/14:The patient was seen today. She is focused on discharge; she denies depression. She reports mood as good. She denies SI/HI or hallucinations. She is awaiting placement. 06/13 The patient was seen today. She says she slept good. She denies SI/HI or hallucinations. She is awaiting placement. 06/12 The patient was seen today. She is calm and cooperative. She denies SI/HI or hallucinations. The patient is awaiting placement to ensure safety and continuity of mental wellness upon discharge. 06/11 The patient was seen today. She says she's ready to go home. She denies SI/HI or hallucinations of any kind. Staff notes that patient has been restless, threatening and demanding. 06/10 The patient was seen today. She is lying in bed asleep. She easily arouses. She says she feels good but is tired. The patient denies SI/HI or hallucinations. 06/09 The patient was seen today. She is calm and cooperative. She denies SI/HI and hallucinations. The patient will discharge tomorrow if no events overnight, once outpatient resources are in place to ensure continuity of mental wellness. 06/08 The patient was seen today. She is in bed sleeping. She easily arouses. She says she's "tired, but good." The patient denies any SI/HI or hallucinations of any kind. 06/07 The patient was seen today. She is forgetful, and appears delusional at times. She doesn't remember why she was admitted into the hospital. She says she is upset. She is asking about going home. The patient denies SI, but states "I'm homicidal against the person who put me here. I want to get a stick and whoop the sh*t out of them." She says "I woke up and I was here." She denies hallucinations. The patient later asked me "do I know you? Are you waiting to see me" while I was going to see another patient. Disposition: 01 HOME / SELF CARE / HOMELESS Allergies/Adverse Reactions: Allergies No Known Allergies Allergy (Unverified 06/04/22 18:07) Vital Signs: Last Vital Signs Temp 98.5 F 06/20/22 07:39 Pulse 112 H 06/20/22 09:13 Resp 18 06/20/22 07:39 BP 148/97 06/20/22 09:13 Pulse Ox 98 06/20/22 07:39 Last Lab: Laboratory Last Values WBC 8.0 K/mm3 (4.5-11.0) 06/05/22 19:50 RBC 4.24 M/mm3 (3.65-5.03) 06/05/22 19:50 Hgb 13.8 gm/dl (10.1-14.3) 06/05/22 19:50 Hct 37.7 % (30.3-42.9) 06/05/22 19:50 MCV 89 fl (79-97) 06/05/22 19:50 MCH 32 pg (28-32) 06/05/22 19:50 MCHC 37 % (30-34) H 06/05/22 19:50 RDW 13.9 % (13.2-15.2) 06/05/22 19:50 Plt Count 201 K/mm3 (140-440) 06/05/22 19:50 Lymph % (Auto) 30.5 % (13.4-35.0) 06/05/22 19:50 [place] % (Auto) 8.5 % (0.0-7.3) H 06/05/22 19:50 Eos % (Auto) 4.5 % (0.0-4.3) H 06/05/22 19:50 Baso % (Auto) 0.6 % (0.0-1.8) 06/05/22 19:50 Lymph # (Auto) 2.4 K/mm3 (1.2-5.4) 06/05/22 19:50 [place] # (Auto) 0.7 K/mm3 (0.0-0.8) 06/05/22 19:50 Eos # (Auto) 0.4 K/mm3 (0.0-0.4) 06/05/22 19:50 Baso # (Auto) 0.0 K/mm3 (0.0-0.1) 06/05/22 19:50 Seg Neutrophils % 55.9 % (40.0-70.0) 06/05/22 19:50 Seg Neutrophils # 4.5 K/mm3 (1.8-7.7) 06/05/22 19:50 Sodium 140 mmol/L (137-145) 06/06/22 04:59 Potassium 4.1 mmol/L (3.6-5.0) 06/06/22 04:59 Chloride 104.8 mmol/L (98-107) 06/06/22 04:59 Carbon Dioxide 24 mmol/L (22-30) 06/06/22 04:59 Anion Gap 15 mmol/L 06/06/22 04:59 BUN 19 mg/dL (7-17) H 06/06/22 04:59 Creatinine 0.7 mg/dL (0.6-1.2) 06/06/22 04:59 Estimated GFR > 60 ml/min 06/06/22 04:59 BUN/Creatinine Ratio 27 % 06/06/22 04:59 Glucose 233 mg/dL (65-100) H 06/06/22 04:59 POC Glucose 98 mg/dL (70-105) 06/20/22 06:18 Hemoglobin A1c 7.0 % (4-6) H 06/06/22 04:59 Calcium 9.2 mg/dL (8.4-10.2) 06/06/22 04:59 Magnesium 1.60 mg/dL (1.7-2.3) L 06/06/22 04:59 Total Bilirubin 0.30 mg/dL (0.1-1.2) 06/05/22 13:17 AST 22 units/L (5-40) 06/05/22 13:17 ALT 22 units/L (7-56) 06/05/22 13:17 Alkaline Phosphatase 131 units/L (35-129) H 06/05/22 13:17 Total Protein 6.9 g/dL (6.3-8.2) 06/05/22 13:17 Albumin 4.0 g/dL (3.9-5) 06/05/22 13:17 Albumin/Globulin Ratio 1.4 % 06/05/22 13:17 Triglycerides 110 mg/dL (2-149) 06/05/22 13:17 Cholesterol 145 mg/dL (50-199) 06/05/22 13:17 LDL Cholesterol Direct 63 mg/dL (50-130) 06/05/22 13:17 HDL Cholesterol 73 mg/dL (40-59) H 06/05/22 13:17 Cholesterol/HDL Ratio 1.98 % 06/05/22 13:17 TSH 1.290 mlU/mL (0.270-4.200) 06/05/22 13:17 Core Measure Documentation - Palliative Care Palliative Care/ Comfort Measures: Not Applicable - Core Measures Any of the following diagnoses?: history only - VTE Discharge Requirements Deep Vein Thrombosis/Pulmonary Embolism Present on Admission: No Exam - Constitutional Vitals: Temp Pulse Resp BP Pulse Ox 98.5 F 112 H 18 148/97 98 06/20/22 07:39 06/20/22 09:13 06/20/22 07:39 06/20/22 09:13 06/20/22 07:39 Plan Activity: advance as tolerated Weight Bearing Status: Weight Bear as Tolerated Care Plan Goals: Maintain good and stable mental health. Plan of Treatment: The patient should be compliant with medications, not to use drugs and not to drink alcohol.The patient understands that if suicidal ideas, homicidal ideas, or any endangering thoughts/behavior arise, they should immediately seek for emergent assistance including but not limited to crisis hot line and emergency room. Follow up with outpatient Psychiatrist and PCP within 7 - 14 days of discharge. Follow up with: PRIMARY CARE,MD [Primary Care Provider] - 7 Days Prescriptions: traZODone [Desyrel] 50 mg PO QHS 30 Days #30 tablet QUEtiapine [SEROquel] 50 mg PO QHS 30 Days #[address] [Depakote Dr] 500 mg PO BID 30 Days #60 tablet QUEtiapine [SEROquel] 25 mg PO DAILY 30 Days #30 tablet Sertraline [Zoloft] 25 mg PO QDAY 30 Days #30 tablet
== END 2022-06-20 12:00 | disposition home or self-care (01) | DRG 885 ==
LOC: UNDOADMIN 16:47 → 3A 16:47 → 5A 06-05 10:15 → EDBD 06-05 10:15
PROVIDERS: ADMIT Psychiatry & Neurology Psychiatry; ATTEND Psychiatry & Neurology Psychiatry
DX: F39 Unspecified mood [affective] disorder (principal); F03.91 Unspecified dementia, unspecified severity, with behavioral disturbance; I10 Essential (primary) hypertension; E78.5 Hyperlipidemia, unspecified; E11.9 Type 2 diabetes mellitus without complications; E83.42 Hypomagnesemia; F41.1 Generalized anxiety disorder; E66.9 Obesity, unspecified; Z68.31 Body mass index [BMI] 31.0-31.9, adult; Z86.73 Personal history of transient ischemic attack (TIA), and cerebral infarction without residual deficits; Z79.4 Long term (current) use of insulin; Z79.899 Other long term (current) drug therapy
CPT/HCPCS: 36415; 80048; 80053; 80061; 82962; 83036; 83735; 84443; 85025; G0378; Q0177; Q9967; J1815